=== PATIENT | female | born 1940 | race Caucasian/White ===

== ENCOUNTER 2017-10-01 19:32 | Emergency (ER) | payer MEDICARE, OTHER, SELFPAY ==
[2017-10-01 19:54] VITALS: BP 155/56; PULSE 79; RESP 19; TEMP 37.1; O2SAT 99; BMI 41.8
--- NOTE | 2017-10-01 20:15 | ED_ITS ---
HPI - Head Injury General Chief complaint: Head Injury Stated complaint: FALL FROM PORCH,HIT BACK OF HEAD Time Seen by Provider: 10/01/17 20:15 Source: patient Mode of arrival: ambulatory Limitations: no limitations History of Present Illness HPI Narrative: 76-year-old for sutures to her left elbow patient states that she was walking backwards down her stairs at home where she stepped back and missed a stair and fell hitting her upper back on the cement floor and then hitting her head. No loss of consciousness. She states she was walking backwards down the stairs because it is better on her knees. Not on anticoagulation. Was placed in a cervical collar by triage secondary to lower midline cervical pain. Patient arrived by private vehicle. She came because there was a cut to her left elbow secondary to the fall. Related Data Home Medications Medication Instructions Recorded Confirmed ASCORBIC ACID (VITAMIN C) 500 mg PO QDAY #0 09/23/12 MULTIVITAMIN 1 cap PO QDAY #0 09/23/12 furosemide [Lasix] #0 11/13/16 Previous Rx's Medication Instructions Recorded amlodipine-benazepril 1 cap PO QDAY #90 cap 08/03/17 Allergies Allergy/AdvReac Type Severity Reaction Status Date / Time codeine AdvReac Mild NAUSEA Verified 10/01/17 19:53 Review of Systems Constitutional Denies chills, Denies fever(s), Denies frequent falls, Denies headache(s), Denies lethargy and Denies weakness Eyes Denies loss of vision ENT Ears, Nose, Mouth, and Throat: Denies vertigo, Denies dizziness and Denies headache(s) Cardiovascular Denies chest pain, Denies irregular heart rhythm, Denies lightheadedness, Denies palpitations, Denies dyspnea, Denies dyspnea on exertion and Denies orthopnea Respiratory Denies cough, Denies dyspnea, Denies dyspnea on exertion and Denies wheezing Gastrointestinal Gastrointestinal: Denies abdominal pain, Denies change in bowel habits, Denies diarrhea, Denies nausea and Denies vomiting Musculoskeletal Comments: Upper back and lower neck pain Integumentary/Breasts Comments: Cut to her left elbow Neurologic Denies confusion, Denies vertigo, Denies dizziness, Denies frequent falls, Denies headache(s), Denies focal weakness, Denies loss of vision, Denies seizure -like activity and Denies weakness Psychiatric Denies confusion Endocrine Denies palpitations Hematologic/Lymphatic Denies easy bruising Allergic/Immunologic Denies wheezing [facility] Surgical History History of hip replacement History of hip replacement History of tonsillectomy Status post delivery Status post delivery Status post surgery (05/26/14) Status post surgery (09/24/15) Social History Smoking Status: Never smoker Exam Initial Vital Signs Initial Vital Signs: Vital Signs Temperature 98.7 F 10/01/17 19:54 Pulse Rate 79 10/01/17 19:54 Respiratory Rate 19 10/01/17 19:54 Blood Pressure 155/56 H 10/01/17 19:54 Pulse Oximetry 99 10/01/17 19:54 Const General: cooperative, comfortable and well developed Nutritional Appearance: well nourished and overweight Orientation: alert, awake, oriented x3 and not confused HENMT Head: normal to inspection, normocephalic, atraumatic and other (No depressed skull fracture felt) Eyes General: appearance normal, both eyes and all related structures Eyelids: eyelids normal Conjunctivae: conjunctivae normal Sclera: sclerae normal Pupils: PERRL EOM: EOM intact bilaterally Neck Other: Patient with lower cervical midline tenderness Chest Chest: normal inspection of the chest and No crepitus Resp Effort & Inspection: normal respiratory effort, able to speak in complete sentences, no respiratory distress and no use of accessory muscles Auscultation: clear to auscultation bilaterally, no rales, no rhonchi and no wheezes Cardio Rate: regular rate Rhythm: regular rhythm Heart Sounds: no click, no gallops, no murmurs and no rubs Pulses: normal peripheral pulses GI Inspection: non-distended Palpation: soft, no hepatosplenomegaly, No guarding, No pulsatile mass and No tender Auscultation: normal bowel sounds Back/Spine/Pelvis Other: Patient with upper thoracic midline tenderness without step-offs Skin Other: 3 cm laceration to her left elbow Neuro General: alert, oriented x3, gait normal and no focal motor deficits Cranial Nerves: CN's II-XI intact bilaterally Speech: speech normal Motor: muscle tone normal throughout Sensory Exam: no sensory deficits noted Extrem Other: No gross deformities Pelvis stable Full range of motion of left elbow specifically Procedures Laceration Repair Laceration 1: Site: upper extremity Side (If applicable): left Size (cm): 3 Description: linear Depth: simple, single layer Local Anesthetic: lidocaine 1% Amount of anesthesia used (mL): 4 Pre-repair: wound explored and deep structures intact Skin layer closed with: nylon Size (cm): other (2-0) Number of sutures: 3 Technique: simple, interrupted Course Orders Ordered: ED Orders 10/01/17 20:16 CT cervical spine wo con Stat CT head/brain wo con Stat CT thoracic spine wo con Stat Discontinued Medications Bacitracin (Bacitracin) 1 applic TOP NOW ONE Stop: 10/01/17 21:28 Last Admin: 10/01/17 21:41 Dose: 1 applic Morphine Sulfate (Morphine Sulfate) 5 mg IV NOW ONE Stop: 10/01/17 20:16 Last Admin: 10/01/17 20:20 Dose: 5 mg Ondansetron HCl (Zofran) 4 mg IV NOW ONE Stop: 10/01/17 20:16 Last Admin: 10/01/17 20:20 Dose: 4 mg Vital Signs - 8 hr 10/01/17 19:54 10/01/17 20:43 10/01/17 21:40 Temperature 98.7 F Pulse Rate 79 75 Respiratory Rate 19 17 Blood Pressure 155/56 H Blood Pressure [Left Arm] 146/54 H Pulse Oximetry 99 92 98 MDM - Head Injury Imaging Data CT scan - head: Radiologist's impression: PROCEDURE: CT HEAD/BRAIN WO CON INDICATIONS: Fall on aspirin TECHNIQUE: Noncontrast 4.5 mm thick angled axial sections acquired from the foramen magnum to the vertex, with coronal and sagittal reformats. For radiation dose reduction, the following was used: automated exposure control, adjustment of mA and/or kV according to patient size. COMPARISON: None. FINDINGS: Image quality: Excellent. CSF spaces: Basal cisterns are patent. No extra-axial fluid collections. Ventricles are normal in size and shape. Brain: No midline shift. No intracranial masses or hemorrhage. Zavala-white matter interface is normal. Skull and face: Calvarium and visualized facial bones are intact, without suspicious lesions. Sinuses: Visualized sinuses and mastoids are clear. IMPRESSION: No CT evidence of acute intracranial pathology. Dictated by: Steven Weaver M.D. on 10/01/2017 at 20:50 CT cervical spine: Radiologist's impression: PROCEDURE: CT CERVICAL SPINE WO CON INDICATIONS: Fall midline lower cervical pain TECHNIQUE: Noncontrast 3 mm thick sections acquired from the skull base to the T4 level. Sagittal and coronal reformats were then constructed. For radiation dose reduction, the following was used: automated exposure control, adjustment of mA and/or kV according to patient size. COMPARISON: None. FINDINGS: Image quality: Excellent. Bones: No fractures or dislocations. Visualized superior ribs are intact. Multilevel extensive degenerative changes throughout thoracic spine greatest in the posterior elements. Multilevel neural foraminal narrowing. Soft tissues: Prevertebral soft tissues are normal in thickness. No paravertebral hematomas. No apical pneumothoraces. Left hemithyroidectomy. IMPRESSION: 1. No acute fractures or dislocations. 2. 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 Findings cause multilevel neural foraminal narrowing. 3. Left hemithyroidectomy. Dictated by: Steven Weaver M.D. on 10/01/2017 at 20:52 CT thoracic spine: Radiologist's impression: PROCEDURE: CT THORACIC SPINE WO CON INDICATIONS: Fall lower cervical upper thoracic pain TECHNIQUE: Noncontrast 3 mm thick sections acquired through the region of interest in the thoracic spine. Sagittal and coronal reformats were then constructed. For radiation dose reduction, the following was used: automated exposure control. COMPARISON: None. FINDINGS: Image quality: Excellent. Bones: There is normal overall bony alignment. No acute vertebral body compression fractures. No suspicious sclerotic or lytic bony lesions. Central spinal canal is of normal overall caliber. Extensive degenerative change with intervertebral body disc height loss and osteophyte formation throughout the thoracic spine. Soft tissues: No paravertebral masses or hematomas. Visualized posteromedial lungs appear clear. Partially visualized cholelithiasis. Mild cardiomegaly. IMPRESSION: 1. No acute fractures or dislocations. 2. Degenerative change throughout the thoracic spine. 3. Partially visualized cholelithiasis. Dictated by: Steven Weaver M.D. on 10/01/2017 at 20:55 MDM Narrative Medical decision making narrative: CT scans negative for acute fractures. No intracranial bleed. Cervical collar was removed. Left elbow sutured as above. Will hold on x-raying left elbow secondary to patient's full range of motion and no pain. Patient does have pain medication at home which she can take. We discussed the importance of taking deep breaths to avoid pneumonias. We discussed care instructions with the sutures of her left elbow. We discussed return precautions. She expressed understanding and agreement with plan Discharge Plan Departure Patient Disposition: Home, Self-Care Clinical Impression: CHI (closed head injury), Pain of paraspinal muscle, Fall, Elbow laceration Discharge Date/Time: 10/01/17 21:40 Interventions: ED Discharge Assessment Last Done: 10/01/17 21:40 Instructions: DI for Laceration Repair, Closed Head Injury Activity Restrictions/Additional Instructions: You can take the Tylenol and the pain medication you have at home for any discomfort. Recommend that you periodically take deep breaths to avoid potential complications like pneumonia. The stitches in her left elbow need to be removed in approximately 7-10 days. You can shower like normal however do not scrub the area. Return to the emergency department for any new or worsening symptoms Prescriptions: No Action MULTIVITAMIN 1 cap PO QDAY Qty: 0 RF: 0 ASCORBIC ACID (VITAMIN C) 500 mg PO QDAY Qty: 0 RF: 0 furosemide [Lasix] 20 mg Tablet Qty: 0 RF: 0 amlodipine-benazepril 5 MG/10 MG capsule 1 cap PO QDAY Qty: 90 RF: 0
[2017-10-01] MEDS: MORPHINE 5 MG/ML INJ IV (20:20)
[2017-10-01] MEDS: ONDANSETRON 4 MG/2 ML INJ IV (20:20)
[2017-10-01 20:43] VITALS: BP 146/54; PULSE 75; RESP 17; O2SAT 92
--- NOTE | 2017-10-01 21:12 | PC.NURSE ---
C-collar removed by Dr. Hoang after receiving CT results.
[2017-10-01 21:40] VITALS: O2SAT 98
[2017-10-01] MEDS: BACITRACIN OINT 0.9 GM PCKT 1 APPLIC TOP (21:41)
== END 2017-10-01 21:40 | disposition home or self-care (01) ==
PROVIDERS: Emergency Provider Emergency Medicine; Family Provider Family Medicine; PCP Family Medicine
DX: S09.90XA Unspecified injury of head, initial encounter (principal); S51.012A Laceration without foreign body of left elbow, initial encounter; M79.1 Myalgia; W10.8XXA Fall (on) (from) other stairs and steps, initial encounter
CPT/HCPCS: 12002; 36591; 70450; 72125; 72128; 96374; 96375; 99282; 99284; J2270; J2405

== ENCOUNTER → 2018-01-20 11:12 | Outpatient (CLI) | payer MEDICARE, OTHER, SELFPAY ==
[2018-01-20 12:07] LABS: Add Manual Diff / Slide Review NO; Basophils Percent Auto 0.7 % (0-2); Eosinophils Percent Auto 1.6 % (2-4); Hematocrit 39.7 % (36-46); Hemoglobin 13.1 g/dL (12.0-16.0); Lymphocytes Percent Auto 30.9 % (25-40); Mean Corpuscular Hemoglobin 29.9 PG (26-34); Mean Corpuscular Volume 90.7 fL (80-100); Monocytes Percent Auto 7.6 % (3-14); Neutrophils Absolute Auto 3400 /uL (3000-5900); Neutrophils Percent Auto 59.2 % (50-75); Platelet Count 239 X10^3/uL (150-400); Red Blood Cell Count 4.38 X10^6/uL (4.0-5.2); Red Cell Distribution Width 14.3 % (11.6-14.8); White Blood Cell Count 5.8 X10^3/uL (4.5-11.0)
[2018-01-20 12:17] LABS: Alanine Aminotransferase 27 IU/L (9-52); Albumin 3.9 g/dL (3.5-5.0); Albumin Globulin Ratio 1.6 (1.0-2.8); Alkaline Phosphatase 31 U/L (38-126); Aspartate Aminotransferase 21 IU/L (14-36); BUN Creatinine Ratio 21.7 (6-22); Bilirubin Total 0.7 mg/dL (0.2-1.3); Bilirubin Unconjugated 0.5 mg/dL (0.0-1.1); Blood Urea Nitrogen 13 mg/dL (7-17); Calcium 9.7 mg/dL (8.4-10.2); Carbon Dioxide 28 mmol/L (22-32); Chloride 102 mmol/L (98-107); Estimated Glomerular Filt Rate > 60.0 mL/min (>60); Globulin 2.5 g/dL (1.7-4.1); Glucose 100 mg/dL (80-110); HEMOLYSIS < 15 (0-50); Phosphorous 3.7 mg/dL (2.8-4.1); Potassium 4.3 mmol/L (3.4-5.1); Sodium 143 mmol/L (137-145); Total Protein 6.4 g/dL (6.3-8.2)
[2018-01-20 12:46] LABS: Cancer Antigen 125 < 6 U/mL (0-35)
== END ==
PROVIDERS: PCP Family Medicine; Visit Provider Registered Nurse
DX: C54.1 Malignant neoplasm of endometrium (principal)
CPT/HCPCS: 36415; 80069; 80076; 85025; 86304

== ENCOUNTER 2018-08-10 07:41 | Day surgery (SDC) | payer MEDICARE, OTHER, SELFPAY ==
[2018-08-10] MEDS: PROPARACAINE 0.5% OPHTH SOL 2 DROPS EYE-OP (08:48)
[2018-08-10] MEDS: CATARACT EYE COMPOUND (10 DROPS/SYRINGE) 3 DROPS EYE-OP (08:53)
[2018-08-10 08:54] VITALS: BMI 42.3
[2018-08-10 09:06] VITALS: BP 165/74; PULSE 73; RESP 15; TEMP 36.9; O2SAT 94
--- NOTE | 2018-08-10 09:53 | PM.PREOP ---
Pre-operative Note Interval Note History & Physical reviewed/Exam performed by Physician: No Changes to H&P: No
--- NOTE | 2018-08-10 09:53 | PM.OP.1 ---
Operative Date/Time/Diagnoses Pre-op diagnosis: Nuclear cataract right eye Procedure & Clinicians Procedure: Cataract Surgery Same procedure as scheduled: Yes Surgeon: Sami Montanez Anesthesia Type: MAC +/- and Sedation Operative Notes Procedure in detail: Patient brought to the operating suite. Tetracaine drops placed in the right eye. Marking instrument was used to justine the vertical and horizontal meridian. Patient was prepped and draped in sterile manner. Wire lid speculum was placed in the eye. Marking instrument was used to justine 100 degree meridian. Betadine drops were placed on the eye. This was irrigated. Lidocaine jelly was placed on the eye. A paracentesis port was created with a side-port blade. 0.1 mL 1% preservative free lidocaine was injected into the anterior chamber. The anterior chamber was deepened with viscoelastic. 2.6 mm keratome was used to create a temporal clear corneal incision. Cystotome and Utrata forceps were used to create continuous tear capsulorrhexis. Balanced salt solution was used to hydro dissect the nucleus. The phacoemulsification handpiece was inserted and the nucleus was removed using the stop and chop technique. The irrigation aspiration handpiece was inserted and the remaining cortex was removed. Anterior chamber was deepened with viscoelastic. An Thomas [id number] intraocular lens with a power of 21.0 was injected into the capsular bag. Irrigation aspiration handpiece was inserted and the remaining viscoelastic was removed. The lens was rotated to the 100 degree meridian. There was a tear noted in the anterior capusle. This did not extend past equator and no vitreous was present in anterior chamber. Incision was hydrated with balanced salt solution and found to be leak free with pressure with Weck-Kanwal sponges. 0.1 mL Vigamox injected anterior chamber. 0.3 mL Kenalog 10 mg was injected subconjunctivally. Lid speculum was removed. The patient left the operating room in excellent condition. Complications: none Condition: stable Disposition: same day surgery
[2018-08-10] MEDS: PHENYLEPHRINE/LIDOCAINE VIAL (OR) 0.2 ML EYE-OP (10:33)
[2018-08-10] MEDS: CHONDROIDTIN/SOD HYALURONATE 1.05 ML SYRINGE INTRAOCULA (10:34)
[2018-08-10] MEDS: MOXIFLOXACIN OPHTH DROPS 3 ML BOTTLE 2 DROPS INJ (10:34)
[2018-08-10] MEDS: LIDOCAINE JELLY 2% 5 ML 1 APPLIC TOP (10:34)
[2018-08-10] MEDS: TETRACAINE 0.5% OPHTH DROPS 4 ML 2 DROPS EYE-OP (10:34)
[2018-08-10] MEDS: TRIAMCINOLONE 50 MG/5 ML VIAL INJ (10:34)
[2018-08-10] MEDS: BALANCED SALT IRRIG SOLN NO.2 500 ML, EPINEPHrine 1 MG IRR (10:35)
[2018-08-10 10:55] VITALS: BP 157/75; PULSE 64; RESP 12; TEMP 36.2; O2SAT 98
== END 2018-08-10 11:00 | disposition home or self-care (01) ==
LOC: OR 07:42
PROVIDERS: Family Provider Family Medicine; PCP Student in an Organized Health Care Education/Training Program; Visit Provider Ophthalmology
PROC: (CPT 66984; principal; 2018-08-10 09:45)
DX: H25.11 Age-related nuclear cataract, right eye (principal); I10 Essential (primary) hypertension
CPT/HCPCS: 66984; J0171; J2250; J3010; J3301; V2787

== ENCOUNTER → 2018-08-23 14:36 | Outpatient (CLI) | payer MEDICARE, OTHER, SELFPAY | PROVIDERS: PCP Student in an Organized Health Care Education/Training Program; Visit Provider Student in an Organized Health Care Education/Training Program | DX: Z13.820 Encounter for screening for osteoporosis (principal); Z78.0 Asymptomatic menopausal state; Z90.722 Acquired absence of ovaries, bilateral; R29.890 Loss of height; Z91.89 Other specified personal risk factors, not elsewhere classified | CPT/HCPCS: 77080; 77081 ==

== ENCOUNTER 2018-08-24 07:52 | Day surgery (SDC) | payer MEDICARE, OTHER, SELFPAY ==
[2018-08-24 08:28] VITALS: BP 155/74; PULSE 75; RESP 12; TEMP 36.4; O2SAT 94; BMI 41.0
[2018-08-24] MEDS: PROPARACAINE 0.5% OPHTH SOL 2 DROPS EYE-OP (08:34)
[2018-08-24] MEDS: CATARACT EYE COMPOUND (10 DROPS/SYRINGE) 3 DROPS EYE-OP (08:39)
--- NOTE | 2018-08-24 09:34 | PM.PREOP ---
Pre-operative Note Interval Note History & Physical reviewed/Exam performed by Physician: No Changes to H&P: No
--- NOTE | 2018-08-24 09:34 | PM.OP.1 ---
Operative Date/Time/Diagnoses Pre-op diagnosis: Nuclear Cataract Left eye Post-op diagnosis: same Procedure & Clinicians Surgeon: Sami Montanez Anesthesia Type: MAC +/- and Sedation Operative Notes Procedure in detail: Patient brought to the operating suite. Tetracaine drops placed in the left eye. Patient was prepped and draped in sterile manner. Wire lid speculum was placed in the eye. Betadine drops were placed on the eye. This was irrigated. Lidocaine jelly was placed on the eye. A paracentesis port was created with a side-port blade. 0.1 mL 1% preservative free lidocaine was injected into the anterior chamber. The anterior chamber was deepened with viscoelastic. 2.6 mm keratome was used to create a temporal clear corneal incision. Cystotome and Utrata forceps were used to create continuous tear capsulorrhexis. Balanced salt solution was used to hydro dissect the nucleus. The phacoemulsification handpiece was inserted and the nucleus was removed using the stop and chop technique. The irrigation aspiration handpiece was inserted and the remaining cortex was removed. Anterior chamber was deepened with viscoelastic. An Thomas [id number] intraocular lens with a power of 24.5 was injected into the capsular bag. Irrigation aspiration handpiece was inserted and the remaining viscoelastic was removed. Incision was hydrated with balanced salt solution and found to be leak free with pressure with Weck-Kanwal sponges. 0.1 mL Vigamox injected anterior chamber. 0.3 mL Kenalog 10 mg was injected subconjunctivally. Lid speculum was removed. The patient left the operating room in excellent condition. Complications: none Condition: stable Disposition: same day surgery
[2018-08-24] MEDS: PHENYLEPHRINE/LIDOCAINE VIAL (OR) 0.2 ML EYE-OP (09:53)
[2018-08-24] MEDS: MOXIFLOXACIN OPHTH DROPS 3 ML BOTTLE 2 DROPS INJ (09:53)
[2018-08-24] MEDS: TETRACAINE 0.5% OPHTH DROPS 4 ML 2 DROPS EYE-OP (09:54)
[2018-08-24] MEDS: LIDOCAINE JELLY 2% 5 ML 1 APPLIC TOP (09:54)
[2018-08-24] MEDS: TRIAMCINOLONE 50 MG/5 ML VIAL INJ (09:54)
[2018-08-24] MEDS: CHONDROIDTIN/SOD HYALURONATE 1.05 ML SYRINGE INTRAOCULA (09:54)
[2018-08-24] MEDS: BALANCED SALT IRRIG SOLN NO.2 500 ML, EPINEPHrine 1 MG IRR (09:55)
[2018-08-24 10:06] VITALS: BP 145/73; PULSE 69; RESP 16; TEMP 36.7; O2SAT 97
== END 2018-08-24 10:16 ==
LOC: OR 07:56
PROVIDERS: PCP Student in an Organized Health Care Education/Training Program; Visit Provider Ophthalmology
DX: H25.12 Age-related nuclear cataract, left eye (principal); I10 Essential (primary) hypertension
CPT/HCPCS: J0171; J2250; J3301

== ENCOUNTER 2018-08-31 13:49 | Day surgery (SDC) | payer MEDICARE, OTHER, SELFPAY ==
[2018-08-31 14:15] VITALS: BP 145/77; PULSE 77; RESP 15; TEMP 36.6; O2SAT 98; BMI 41.5
[2018-08-31] MEDS: SODIUM CHLORIDE 0.9% 1,000 ML 200 ML IV ×2 (14:15→17:47)
--- NOTE | 2018-08-31 16:31 | PM.HP.1 ---
History of Present Illness Date Patient Seen: 08/31/18 Time Patient Seen: 16:00 Chief complaint: [id number] SCREENING COLONOSCOPY Narrative: 77-year-old female with personal history of multiple colon polyps on Q 5 year plan for colonoscopy presents for most recent screening colonoscopy. Last was over 5 years ago. She does have a family history of colorectal cancer with her daughter developing colon Cancer in her 50s Current without intestinal symptoms Tolerated prep well Patient History Medical History (Updated 08/31/18 @ 16:33 by Jeremías Cruz MD) Endometrial cancer (Acute) Surgical History History of hip replacement History of hip replacement History of tonsillectomy Status post delivery Status post delivery Status post surgery (05/26/14) Status post surgery (09/24/15) Social History household members: spouse Smoking Status: Never smoker Family & Social History Social History: household members spouse Tobacco & Substance use: Smoking Status Never smoker alcohol intake frequency 0-2 drinks per day Substance Use Type does not use Meds Home Medications Medication Instructions Recorded Confirmed Type multivitamin 2 tab PO DAILY #0 09/23/12 08/31/18 History disabled [address] permit 0 .ROUTE .COMPLEX #1 12/30/17 08/13/18 Rx amlodipine 5 mg-benazepril 10 mg 1 cap PO QDAY #90 cap 02/01/18 08/31/18 Rx capsule furosemide 20 mg tablet 20 mg PO BID #0 tab 08/13/18 08/31/18 History potassium chloride ER 10 mEq 10 meq PO DAILY #90 cap 08/13/18 08/31/18 Rx capsule,extended release Allergies Allergy/AdvReac Type Severity Reaction Status Date / Time codeine AdvReac Mild NAUSEA Verified 08/31/18 14:21 adhesive tape AdvReac Unknown removes my Verified 08/31/18 14:21 skin Review of Systems Constitutional Constitutional: Denies fever(s) Eyes Eyes: Denies bulging eyes ENT Ears, Nose, Mouth, and Throat: No lip swelling Cardiovascular Cardiovascular: Denies generalize swelling Respiratory Respiratory: Denies stridor Gastrointestinal Gastrointestinal: Denies coffee ground emesis Musculoskeletal Musculoskeletal: Denies loss of height Integumentary/Breasts Skin/Breast: Denies wounds Neurologic Neurologic: Denies abnormal speech and Denies confusion Psychiatric Psychiatric: Denies confusion Endocrine Endocrine: Denies deepening of the voice Hematologic/Lymphatic Hematologic/Lymphatic: Denies lymphadenopathy Allergic/Immunologic Allergic/Immunologic: Denies lip swelling Exam Vital Signs (past 8 hours): - 08/31/18 14:15 Temperature 98 F Pulse Rate 77 Respiratory Rate 15 Blood Pressure 145/77 H Pulse Oximetry 98 Oxygen Delivery Method Room Air Const General: cooperative and healthy appearing Orientation: alert HENMT Head: normal to inspection Nose: nares normal Mouth: oral mucosae normal and lip normal Eyes Eyelids: eyelids normal Conjunctivae: conjunctivae normal Sclera: sclerae normal Neck Neck: supple and other (No thyromegally) Chest Chest: other (LCTAB , regular respiratory effort) Cardio Rhythm: regular rhythm Heart Sounds: S1 normal, S2 normal, no gallops, no murmurs and no rubs GI Other: Abdomen soft nontender nondistended. Large well scarred midline laparotomy incision Skin General: no rashes or lesions noted Neuro General: alert and awake Psych Appearance: grossly normal Affect: normal affect Assessment & Plan Assessment & Plan narrative: 77-year-old female with history of endometrial cancer status post hysterectomy presents for screening colonoscopy. Personal history of colon polyps. Family history of colon cancer Colonoscopy today with procedural sedation
[2018-08-31] MEDS: MIDAZOLAM 5 MG/5 ML VIAL IV (17:18)
[2018-08-31] MEDS: fentaNYL 250 MCG/5 ML INJ IV (17:19)
[2018-08-31 18:10] VITALS: BP 124/52; PULSE 65; RESP 16; TEMP 37.1; O2SAT 94
--- NOTE | 2018-08-31 18:13 | PM.OP.ENDO ---
Operative Date/Time/Diagnoses Date of procedure: 08/31/18 Time of procedure: 16:00 Pre-op diagnosis: History of colon polyps Post-op diagnosis: same Procedure & Clinicians Study performed: Screening colonoscopy Same procedure as scheduled: Yes Surgeon: Jeremías Cruz Procedure Notes SCOAP/Timeout: yes Procedure in detail: Patient was brought to the endoscopy suite. A time-out was completed. She was sedated with midazolam and fentanyl. The anoderm was inspected without abnormality a digital rectal exam was performed and no polyps or masses detected. A 160 cm colonoscope was then advanced through the anus into the rectal vault. The area was insufflated and the scope was advanced. There was an acute angle of the rectosigmoid junction requiring careful slide-by procedure to advance the scope beyond. There are numerous diverticuli noted within the sigmoid colon although no diverticulitis. The sigmoid itself was quite tortuous eventually was able to enter into the left colon and advanced the scope up and beyond the hepatic flexure. The transverse colon was navigated making note of the triangular folds. Upon entering the right colon the colonoscopically maneuvering became difficult again with several acute fold below the level of the hepatic flexure was able to traverse these entering into the blind pouch of the cecum. The appendiceal orifice as well as the ileocecal valve were identified. the scope was slowly withdrawn for a total withdrawal time of approximately 15 minutes. Due to the relatively fixed nature of the colon and several tight corners ample time was spent inspecting what was visualized below of these corners with multiple passes in and out around each corner for most thorough inspection. Inspecting the mucosa from the cecum through the rectum no polyps were found. There was a small patch of angiodysplasia lesion just proximal of the splenic flexure. Total withdrawal time 15min Fentanyl 300 Midazolam 8 Scope withdrawal time: 15 minutes Findings: diverticulosis and vascular ectasias Specimen(s): none sent Complications: none Impression: No neoplastic lesions of concern Recommendations: Colonscopy in 5 years Plan for aftercare: The PACU Follow up: as needed Disposition: PACU
== END 2018-08-31 18:35 | disposition home or self-care (01) ==
PROVIDERS: PCP Student in an Organized Health Care Education/Training Program; Visit Provider Surgery
PROC: 0DJD8ZZ Inspection of Lower Intestinal Tract, Via Natural or Artificial Opening Endoscopic (ICD-10-PCS; CPT 45378; principal; 2018-08-31 15:30)
DX: Z86.010 Personal history of colon polyps (principal); K57.30 Diverticulosis of large intestine without perforation or abscess without bleeding; K55.20 Angiodysplasia of colon without hemorrhage; Z80.0 Family history of malignant neoplasm of digestive organs
CPT/HCPCS: G0105; J2250; J3010

== ENCOUNTER → 2019-06-15 11:06 | Outpatient (CLI) | payer MEDICARE, OTHER, SELFPAY ==
[2019-06-15 11:54] LABS: Alanine Aminotransferase 22 IU/L (<35); Albumin 4.2 g/dL (3.5-5.0); Albumin Globulin Ratio 1.3 (1.0-2.8); Alkaline Phosphatase 29 U/L (38-126); Aspartate Aminotransferase 22 IU/L (14-36); Bilirubin Total 0.7 mg/dL (0.2-1.3); Blood Urea Nitrogen 18 mg/dL (7-17); Calcium 10.1 mg/dL (8.4-10.2); Carbon Dioxide 31 mmol/L (22-32); Chloride 102 mmol/L (98-107); Estimated Glomerular Filt Rate > 60.0 mL/min (>60); Globulin 3.2 g/dL (1.7-4.1); Glucose 107 mg/dL (80-110); HEMOLYSIS < 15 (0-50); Potassium 4.7 mmol/L (3.4-5.1); Sodium 141 mmol/L (137-145); Total Protein 7.4 g/dL (6.3-8.2)
== END ==
PROVIDERS: PCP Student in an Organized Health Care Education/Training Program; Referring Provider Radiology Radiation Oncology; Visit Provider Radiology Radiation Oncology
DX: Z85.42 Personal history of malignant neoplasm of other parts of uterus (principal)
CPT/HCPCS: 36415; 80053

== ENCOUNTER 2019-06-23 12:00 | Emergency (ER) | payer MEDICARE, OTHER, SELFPAY ==
[2019-06-23 12:17] VITALS: BP 171/77; PULSE 79; RESP 16; TEMP 37; O2SAT 93; BMI 42.5
[2019-06-23 16:09] VITALS: BP 188/78; PULSE 76; RESP 16; O2SAT 95
--- NOTE | 2019-06-23 16:16 | DI.RAD.S_ITS ---
PROCEDURE: XR HIP W PEL IF DONE LT 2V INDICATIONS: hip pain TECHNIQUE: 3 views of the hip were acquired. COMPARISON: [facility], CT, CT CHEST ABDOMEN PELVIS WITH CONTRAST, 05/09/2019, 14:41. [facility], CR, HIP 2V RIGHT, 12/15/2012, 9:24. FINDINGS: Bones: No fractures or dislocations. No suspicious bony lesions. The visualized pelvic ring appears intact. Soft tissues: No suspicious soft tissue calcifications or masses. IMPRESSION: Bilateral hip arthroplasties, no evidence of device loosening or disruption. A source of new left-sided hip pain is not found. Note is again made of areas of heterotopic ossification adjacent to the lateral border of the left hip joint. Dictated by: J Luis Whitley M.D. on 06/23/2019 at 17:19 Approved by: J Luis Whitley M.D. on 06/23/2019 at 17:20
[2019-06-23] MEDS: CYCLOBENZAPRINE 10 MG TABLET PO (16:27)
[2019-06-23] MEDS: LIDOCAINE PATCH 1 EACH ADH..PATCH TOP (16:27)
[2019-06-23 17:42] VITALS: BP 200/79; PULSE 79; RESP 16; O2SAT 96
--- NOTE | 2019-06-23 20:15 | ED.EXTPRO ---
HPI - Extremity Problem <YAS KatzBC - Last Filed: 06/23/19 20:19> General Chief complaint: Extremity Problem,Nontraumatic Stated complaint: back,groin,down left leg pain Time Seen by Provider: 06/23/19 16:06 Source: patient Mode of arrival: Ambulatory Limitations: no limitations History of Present Illness HPI Narrative: The patient is a 78-year-old female nonsmoker with history of bilateral hip replacements who presents with her for chief complaint of left-sided hip pain. She is worried that her hip replacements ?breaking down.She states that she started having pain a few days ago when she was stretching. She denies any shortness of breath, fever, nausea vomiting or diarrhea. She has tried Tylenol and oxycodone. The oxycodone help speak she denies any redness, swelling or rashes in the area. She states that the pain is in the inguinal area. Wraps around her hip on the left side. Related Data Home Medications Medication Instructions Recorded Confirmed multivitamin 2 tab PO DAILY #0 09/23/12 06/23/19 furosemide 20 mg tablet 20 mg PO DAILY #0 tab 08/13/18 06/23/[address] 1 ea .ROUTE DIRECTED 06/23/19 06/23/19 metronidazole 1 applic TOPICAL DIRECTED 06/23/19 06/23/19 Previous Rx's Medication Instructions Recorded potassium chloride 10 mEq 10 meq PO DAILY #90 cap 01/25/19 capsule,extended release amlodipine 5 mg-benazepril 10 mg 1 cap PO DAILY #14 cap 01/31/19 capsule cyclobenzaprine 10 mg PO TID PRN #20 tab 06/23/19 lidocaine 1 patch TOP DAILY #15 each 06/23/19 Allergies Allergy/AdvReac Type Severity Reaction Status Date / Time oxycodone Allergy Verified 06/23/19 12:17 codeine AdvReac Mild NAUSEA Verified 06/23/19 12:17 adhesive tape AdvReac Unknown removes my Verified 06/23/19 12:17 skin Review of Systems <SUZIE Katz - Last Filed: 06/23/19 20:19> Review of Systems Narrative: GENERAL: Denies chills, fatigue, malaise, fever, sweats. HEENT: Denies sinus pain, ear pain, sore throat, difficulty swallowing, dizziness. RESPIRATORY: Denies dyspnea, cough, wheezing, hemoptysis, sputum. CARDIOVASCULAR: Denies chest pain, palpitations, orthopnea, edema, GASTROINTESTINAL: Denies nausea, vomiting, abdominal pain, diarrhea, constipation, melena. : Denies dysuria, frequency, incontinence, hematuria, urinary retention. MUSCULOSKELETAL: See HPI SKIN: Denies rash, skin lesions, or other NEUROLOGIC: Denies weakness, headache, numbness, change in speech, confusion, seizures, incoordination. PSYCHIATRIC: No concerning psychosocial issues. 12 point review of systems is negative except for those stated above Patient History <SUZIE Katz - Last Filed: 06/23/19 20:19> Medical History Endometrial cancer (Acute) Surgical History History of hip replacement History of hip replacement History of tonsillectomy Status post delivery Status post delivery Status post surgery (05/26/14) Status post surgery (09/24/15) Social History household members: spouse Smoking Status: Never smoker Smoking Status: Never smoker alcohol intake frequency: holidays/special occasions only Substance Use Type: does not use Exam <SUZIE Katz - Last Filed: 06/23/19 20:19> Narrative Exam Narrative: GENERAL: Elderly female in no acute distress HEAD: Atraumatic. Normocephalic. No temporal or scalp tenderness. EYES: Pupils equal round and reactive. Extraocular motions intact. No scleral icterus. No injection or drainage. ENT: Nose without bleeding, purulent drainage or septal hematoma. Throat without erythema, tonsillar hypertrophy or exudate. Uvula midline. Airway patent. NECK: Trachea midline. No JVD or lymphadenopathy. Supple, nontender, no meningeal signs. CARDIOVASCULAR: Regular rate and rhythm without murmurs, gallops, or rubs. RESPIRATORY: Clear to auscultation. Breath sounds equal bilaterally. No wheezes, rales, or rhonchi. GASTROINTESTINAL: Abdomen soft, non-tender, nondistended. No hepato-splenomegaly, or palpable masses. No guarding. EXTREMITIES: Pedal pulses intact bilaterally. Pain to palpation right hip that is generalized. Decreased range of motion all gil bilateral hips BACK: Nontender without deformity or crepitance. No flank tenderness. NEURO: AOx3. SKIN: No rash or erythema on visible skin. No swelling, ecchymosis, laceration abrasion or redness noted on left leg. Initial Vital Signs Initial Vital Signs: Vital Signs Temperature 98.6 F 06/23/19 12:17 Pulse Rate 79 06/23/19 12:17 Respiratory Rate 16 06/23/19 12:17 Blood Pressure 171/77 H 06/23/19 12:17 Pulse Oximetry 93 06/23/19 12:17 <Virgilio Sampson DO - Last Filed: 06/24/19 07:06> Initial Vital Signs Initial Vital Signs: Vital Signs Temperature 98.6 F 06/23/19 12:17 Pulse Rate 79 06/23/19 12:17 Respiratory Rate 16 06/23/19 12:17 Blood Pressure 171/77 H 06/23/19 12:17 Pulse Oximetry 93 06/23/19 12:17 Course <SUZIE Katz - Last Filed: 06/23/19 20:19> Orders Ordered: Discontinued Medications Cyclobenzaprine HCl (Flexeril) 10 mg PO NOW ONE Stop: 06/23/19 16:17 Last Admin: 06/23/19 16:27 Dose: 10 mg Documented by: SHAVON Lidocaine (Lidoderm) 1 each TOP NOW ONE Stop: 06/23/19 16:17 Last Admin: 06/23/19 16:27 Dose: 1 each Documented by: SHAVON Vital Signs Vital signs: Vital Signs - 8 hr 06/23/19 12:17 06/23/19 16:09 06/23/19 17:42 Temperature 98.6 F Pulse Rate 76 79 Pulse Rate [Left] 79 Respiratory Rate 16 16 16 Blood Pressure [Left Arm] 171/77 H 188/78 H 200/79 H Pulse Oximetry 93 95 96 <Virgilio Sampson DO - Last Filed: 06/24/19 07:06> Orders Ordered: Discontinued Medications Cyclobenzaprine HCl (Flexeril) 10 mg PO NOW ONE Stop: 06/23/19 16:17 Last Admin: 06/23/19 16:27 Dose: 10 mg Documented by: SHAVON Lidocaine (Lidoderm) 1 each TOP NOW ONE Stop: 06/23/19 16:17 Last Admin: 06/23/19 16:27 Dose: 1 each Documented by: SHAVON Vital Signs Vital signs: Vital Signs - 8 hr 06/23/19 12:17 06/23/19 16:09 06/23/19 17:42 Temperature 98.6 F Pulse Rate 76 79 Pulse Rate [Left] 79 Respiratory Rate 16 16 16 Blood Pressure [Left Arm] 171/77 H 188/78 H 200/79 H Pulse Oximetry 93 95 96 MDM - Extremity (Nontraumatic) <SUZIE Katz - Last Filed: 06/23/19 20:19> Imaging Data Extremity x-ray #1: Radiologist's Impression: [address] [place] [id number] XRay Report Signed Patient: Evon Farrell BMR#: [id number] : 1940Acct:[id number] Age/Sex: 78 / FDate of Service: 06/23/19 Loc: ED Accession Number: [id number] Procedure: XR hip w pel if done LT 2V Ordering Provider: Sonya Darling PROCEDURE: XR HIP W PEL IF DONE LT 2V INDICATIONS: hip pain TECHNIQUE: 3 views of the hip were acquired. COMPARISON: [facility], CT, CT CHEST ABDOMEN PELVIS WITH CONTRAST, 05/09/2019, 14:41. [facility], CR, HIP 2V RIGHT, 12/15/2012, 9:24. FINDINGS: Bones: No fractures or dislocations. No suspicious bony lesions. The visualized pelvic ring appears intact. Soft tissues: No suspicious soft tissue calcifications or masses. IMPRESSION: Bilateral hip arthroplasties, no evidence of device loosening or disruption. A source of new left-sided hip pain is not found. Note is again made of areas of heterotopic ossification adjacent to the lateral border of the left hip joint. Dictated by: J Luis Whitley M.D. on 06/23/2019 at 17:19 Approved by: J Luis Whitley M.D. on 06/23/2019 at 17:20 [facility] Narrative Medical decision making narrative: The patient is a 78-year-old female who presents with a chief complaint of left-sided hip pain and concerned about her hip replacement. No acute findings on x-ray. The patient feels much improved after Flexeril and lidocaine. I discussed at length the importance of following up with primary care provider, coming back to the emergency department for any acute concerns. She is neurovascularly intact throughout her stay in the emergency department, able to weightbear with her walker per usual. Patient has no questions or concerns upon discharge and states understanding of return precautions as well as follow-up care. Patient has no questions or concerns upon discharge and states understanding of return precautions as well as follow-up care Discharge Plan Departure Patient Disposition: Home Clinical Impression: Acute pain of left hip Discharge Date/Time: 06/23/19 17:46 Instructions: DI for Muscle Spasm, DI for Hip Pain Activity Restrictions/Additional Instructions: As I discussed, your x-ray shows no acute fracture. This does not rule out a soft tissue injury such as a ligament or tendon injury. It is important that you follow up with primary care provider, especially if worsening or no improvement. There can be fractures that did not show up on initial x-ray. I sent in a prescription for pain patches as well as Flexeril. This is a muscle relaxer. I can be sedating. Do not combine it with any other sedating agents. Please follow-up with primary care provider next few days Please come back to emergency department for any acute concerns Prescriptions: New cyclobenzaprine 10 mg tablet 10 mg PO TID PRN (Reason: muscle spasm) Qty: 20 RF: 0 lidocaine 5 % adhesive patch,medicated 1 patch TOP DAILY Qty: 15 RF: 0 No Action multivitamin Tablet 2 tab PO DAILY Qty: 0 RF: 0 potassium chloride 10 mEq capsule, extended release 10 meq PO DAILY Qty: 90 RF: 3 amlodipine-benazepril 5-10 mg capsule 1 cap PO DAILY Qty: 14 RF: 0 furosemide [Lasix] 20 mg tablet 20 mg PO DAILY Qty: 0 RF: 0 metronidazole 0.75 % cream 1 applic TOPICAL DIRECTED RF: [address] permit 1 ea .Route DIRECTED RF: 0 Referrals: Herb Graves MD [Primary Care Provider] -
== END 2019-06-23 17:46 | disposition home or self-care (01) ==
PROVIDERS: Emergency Provider Nurse Practitioner Family; PCP Student in an Organized Health Care Education/Training Program
DX: M25.552 Pain in left hip (principal)
CPT/HCPCS: 73502; 99283

== ENCOUNTER → 2020-01-30 11:54 | Outpatient (CLI) | payer MEDICARE, OTHER, SELFPAY ==
[2020-01-30 13:43] LABS: BUN Creatinine Ratio 28.3 (6-22); Blood Urea Nitrogen 17 mg/dL (7-17); Calcium 9.2 mg/dL (8.4-10.2); Carbon Dioxide 32 mmol/L (22-32); Chloride 103 mmol/L (98-107); Estimated Glomerular Filt Rate > 60.0 mL/min (>60); Glucose 115 mg/dL (80-110); HEMOLYSIS < 15 (0-50); Potassium 4.1 mmol/L (3.4-5.1); Sodium 138 mmol/L (137-145)
== END ==
PROVIDERS: PCP Student in an Organized Health Care Education/Training Program; Referring Provider Internal Medicine Hematology & Oncology; Visit Provider Internal Medicine Hematology & Oncology
DX: C54.1 Malignant neoplasm of endometrium (principal)
CPT/HCPCS: 36415; 80048

== ENCOUNTER → 2020-01-31 12:56 | Outpatient (CLI) | payer MEDICARE, OTHER, SELFPAY ==
--- NOTE | 2020-01-31 13:53 | DI.CT.S_ITS ---
PROCEDURE: CT CHEST ABD PEL W CON INDICATIONS: Malignant neoplasm of endometrium TECHNIQUE: After the administration of oral and intravenous contrast, 5 mm thick sections acquired from the lung apices to the symphysis. 5 mm coronal and sagittal reformats were performed, with additional 7 mm coronal MIP reformats through the lungs. For radiation dose reduction, the following was used: automated exposure control, adjustment of mA and/or kV according to patient size. COMPARISON: [facility], CT, CT CHEST ABD PELVIS W CON, 01/21/2016, 9:14. [facility], CT, CT CHEST ABDOMEN PELVIS WITH CONTRAST, 10/31/2019, 16:16. [facility], CT, CHEST/ABD/PEL WITH CONTRAST, 10/02/2015, 9:32. FINDINGS: Image quality: Excellent. CHEST: Lungs and pleura: There are scattered ground-glass opacities throughout both lungs. No focal airspace opacities. No pulmonary nodules. No pleural effusion or pneumothorax. Mild platelike atelectasis is present in the mid lungs bilaterally. Mediastinum: Heart size is normal. No pericardial effusion. There is a borderline enlarged subcarinal lymph node which is unchanged from multiple studies dating back to 2016 (series 2/image 32). A low-density 1.3 cm in diameter cystic structure is present posterior to the left atrium which is unchanged from prior studies and may represent a necrotic lymph node. No other mediastinal or hilar adenopathy. Thoracic aorta and central pulmonary arteries are normal in size. Scattered atheromatous calcifications are present within the aortic arch. Esophagus is normal in caliber. No hiatal hernia. Chest wall: No axillary or supraclavicular adenopathy by size criteria. There is hypertrophy of the right thyroid lobe which extends in the retropharyngeal region. The left thyroid lobe is not visualized and may be surgically absent. Surgical clips are present in the thyroid bed. ABDOMEN: Solid organs: Liver is normal in size and diffusely hypodense suggesting fatty infiltration. Multiple calcified gallstones are redemonstrated in the gallbladder fundus. No gallbladder wall thickening or pericholecystic fluid. Biliary system is non dilated. Pancreas enhances normally. Spleen is normal in size and enhancement. No adrenal nodules. Kidneys demonstrate normal size and enhancement, without hydronephrosis. A low-density cystic lesion is present within the midpole of the right kidney. Peritoneum and bowel: Bowel loops demonstrate normal wall thickness and caliber. No free fluid or air. Nodes and vessels: No retroperitoneal or mesenteric adenopathy by size criteria. Aorta and inferior vena cava are normal in size. There are scattered atheromatous calcifications throughout the aorta and iliac arteries bilaterally. Miscellaneous: No ventral hernias. PELVIS: Genitourinary: Bladder wall thickness is normal. Miscellaneous: No inguinal hernias or adenopathy. Bones: No suspicious bony lesions. No vertebral body compression fractures. IMPRESSION: 1. No findings to suggest tumor recurrence or new metastasis. Dictated by: Arleen Castellanos M.D. on 01/31/2020 at 14:34 Approved by: Arleen Castellanos M.D. on 01/31/2020 at 15:01
== END ==
PROVIDERS: PCP Student in an Organized Health Care Education/Training Program; Referring Provider Student in an Organized Health Care Education/Training Program; Visit Provider Internal Medicine Hematology & Oncology
DX: C54.1 Malignant neoplasm of endometrium (principal)
CPT/HCPCS: 71260; 74177; Q9967

== ENCOUNTER → 2020-02-16 12:11 | Outpatient (CLI) | payer MEDICARE, OTHER, SELFPAY ==
[2020-02-16 16:38] LABS: TSH w/ Reflex to FT4 0.45 uIU/mL (0.47-4.68)
== END ==
PROVIDERS: PCP Student in an Organized Health Care Education/Training Program; Referring Provider Student in an Organized Health Care Education/Training Program; Visit Provider Student in an Organized Health Care Education/Training Program
DX: I16.0 Hypertensive urgency (principal)
CPT/HCPCS: 36415; 84439; 84443

== ENCOUNTER → 2020-03-09 14:01 | Outpatient (CLI) | payer MEDICARE, OTHER, SELFPAY ==
--- NOTE | 2020-03-09 14:03 | DI.ECHO.S_ITS ---
[facility] +---------+ : : [address] : : : : [id number] : : : : Phone: [phone]+ Echocardiogram Report + + :Name: MARY HAYES Study Date: 03/09/2020 Height: 61 in : :[facility] Weight: 230 lb : : Gender: Female BSA: 2.0 m2 : :: 1940 Age: 79 yrs BP: 196/86 mmHg: :Reason For Study: HYPERTENSIVE URGENCY : : Performed By: Kiana Lamas : :Referring: ANTOINE ZHOU : + + Interpretation Summary 1) Normal left ventricular size, thickness, and systolic function (EF 65-70%). 2) There are no obvious focal wall motion abnormalities noted but poor endocardial definition reduces the sensitivity for the detection of such. 3) Normal right ventricular size and function. 4) Diastolic parameters suggest a pseudonormalization pattern, consistent with probable elevated filling pressures. 5) No significant valvular abnormalities on doppler examination. 6) The right ventricular systolic pressure is estimated to be at least 53 mmHg based on an estimated right atrial pressure of 8 mm Hg. 7) Severe hypertension present during the study (BP 196/86mHg). 8) Compared to the Echo done 11/12/2015, severe hypertension is present on this study. Procedure: A two-dimensional transthoracic echocardiogram with color flow and Doppler was performed. The study quality was technically difficult. Comparison is made with the echocardiogram of 11/12/2015. The patient was in normal sinus rhythm during the exam. Left Ventricle: The left ventricle is normal in size. There is normal left ventricular wall thickness. There is no ventricular septal defect visualized. The ejection fraction is estimated to be 65-70%. There are no obvious focal wall motion abnormalities noted but poor endocardial definition reduces the sensitivity for the detection of such. Diastolic parameters suggest a pseudonormalization pattern, consistent with probable elevated filling pressures. Right Ventricle: The right ventricle is grossly normal size. The right ventricular systolic function is normal. Atria: The left atrium is mildly dilated. Right atrial size is normal. Mitral Valve: The mitral valve leaflets are slightly calcified. There is trace mitral regurgitation. Aortic Valve: The aortic valve is grossly normal. There is no aortic valve stenosis. No aortic regurgitation is present. Tricuspid Valve: The tricuspid valve is not well visualized, but is grossly normal. There is trace tricuspid regurgitation. The right ventricular systolic pressure is estimated to be at least 53 mmHg based on an estimated right atrial pressure of 8 mm Hg. Pulmonic Valve: The pulmonic valve is not well visualized. There is a trace or physiologic amount of pulmonic regurgitation. Great Vessels: The aortic root is normal size. The ascending aorta could not be visualized. The aortic arch is normal in size. The IVC is of normal diameter and collapses less than 50% with a sniff. This suggests a right atrial pressure of 8 mm Hg. Pericardium/ Pleura There is no pericardial effusion. MMode/2D Measurements & Calculations LVIDd: 5.1 cm LVOT diam: 1.9 cm LVIDs: 2.9 cm Ao root diam: 2.9 cm FS: 42.8 % Ao Arch Diam (Prox Trans): 2.6 cm IVSd: 0.76 cm LVPWd: 1.0 cm LV singh. diameter/BSA (cm/m^2): 2.6 LV sys. diameter/BSA (cm/m^2): 1.5 LA A4 area: 21.3 cm2 RA long axis: 4.8 cm LA length (vol): 6.1 cm RA area: 16.4 cm2 RA vol: 47.9 ml RA : 23.9 ml/m2 IVC diam: 2.0 cm RVD1 (basal): 3.0 cm RVD2 (mid): 2.5 cm TAPSE: 2.6 cm Doppler Measurements & Calculations Ao V2 max: 196.3 cm/sec LVOT Max Jairon: 162.9 cm/sec Ao V2 mean: 119.3 cm/sec LV V1 max P.6 mmHg Ao max P.4 mmHg LV V1 VTI: 35.5 cm Ao mean P.7 mmHg CHRIS(I,D): 2.8 cm2 Ao V2 VTI: 36.1 cm CHRIS(V,D): 2.3 cm2 sev ratio: 0.98 CHRIS indexed to BSA (cm^2/m^2): 1.4 MV E max jairon: 138.5 cm/sec TR max jairon: 336.1 cm/sec MV A max jairon: 131.3 cm/sec TR max P.2 mmHg MV E/A: 1.1 PA V2 max: 111.2 cm/sec Med Peak E' Jairon: 6.4 cm/sec PA V2 mean: 87.2 cm/sec E/E' med: 21.6 PA mean P.3 mmHg Lat Peak E' Jairon: 7.7 cm/sec PA Accel Time: 0.08 sec E/E' lat: 18.0 E/e' average: 19.8 MV dec time: 0.19 sec MV P1/2t: 55.6 msec MVA(VTI): 2.9 cm2 MV V2 mean: 76.2 cm/sec MV P1/2t max jairon: 139.7 cm/sec MV mean P.9 mmHg MVA(P1/2t): 4.0 cm2 MV V2 VTI: 34.5 cm SV(LVOT): 100.2 ml Reading Physician:05:37 PM
== END ==
PROVIDERS: PCP Student in an Organized Health Care Education/Training Program; Referring Provider Student in an Organized Health Care Education/Training Program; Visit Provider Student in an Organized Health Care Education/Training Program
DX: I16.0 Hypertensive urgency (principal)
CPT/HCPCS: 93306

== ENCOUNTER → 2020-03-16 11:18 | Outpatient (CLI) | payer MEDICARE, OTHER, SELFPAY ==
--- NOTE | 2020-03-16 | DI.MG.S_ITS ---
BILATERAL DIGITAL SCREENING MAMMOGRAM 3D/2D WITH CAD: 03/16/2020 CLINICAL: Routine screening. Comparison is made to exams dated: 11/18/2016 mammogram, 02/15/2014 mammogram, and 01/24/2013 mammogram - [facility]. There are scattered fibroglandular elements in both breasts. Current study was also evaluated with a Computer Aided Detection (CAD) system. No significant masses, calcifications, or other findings are seen in either breast. There has been no significant interval change. IMPRESSION: NEGATIVE There is no mammographic evidence of malignancy. A 1 year screening mammogram is recommended. This exam was interpreted at Station ID: [id number]. NOTE: For mammograms, a report in lay terms will be sent to the patient. Approximately 15% of breast malignancies will not be visualized mammographically. In the management of a palpable breast mass, a negative mammogram must not discourage biopsy of a clinically suspicious lesion. Electronically Signed By: Arleen badillo/karlie:03/16/2020 13:28:56 copy to: SARAI MTZ letter sent: Normal Exam ACR BI-RADS Category 1: Negative [id number]
== END ==
PROVIDERS: PCP Student in an Organized Health Care Education/Training Program; Referring Provider Student in an Organized Health Care Education/Training Program; Visit Provider Student in an Organized Health Care Education/Training Program
DX: Z12.31 Encounter for screening mammogram for malignant neoplasm of breast (principal)
CPT/HCPCS: 77063; 77067

== ENCOUNTER 2020-05-03 13:28 | Emergency (ER) | payer MEDICARE, OTHER, SELFPAY ==
[2020-05-03] VITALS (7 sets, daily range): BP systolic 135–199; BP diastolic 64–83; PULSE 68–80; RESP 16–24; TEMP 36.8; O2SAT 91–95
--- NOTE | 2020-05-03 13:58 | DI.RAD.S_ITS ---
PROCEDURE: XR CHEST 1V INDICATIONS: sob TECHNIQUE: One view of the chest was acquired. COMPARISON: [facility], CT, CT ANGIO CHEST PE, 11/08/2015, 19:00. [facility], CR, XR CHEST 2VW, 11/12/2015, 7:51. [facility], CR, CHEST 2 VIEW, 11/20/2015, 17:09. FINDINGS: Surgical changes and devices: None. Lungs and pleura: There are diffuse bilateral linear perihilar opacities consistent with scarring seen on prior chest CT. No pneumothorax. No pleural effusion. Mediastinum: Mediastinal contours appear normal. Heart size is normal. Bones and chest wall: No suspicious bony lesions. Overlying soft tissues appear unremarkable. IMPRESSION: Linear perihilar airspace opacities are likely scarring which was seen on prior chest CT. A component of mild CHF is also a possibility. Dictated by: Lonnie Ernandez M.D. on 05/03/2020 at 14:48 Approved by: Lonnie Ernandez M.D. on 05/03/2020 at 14:51
--- NOTE | 2020-05-03 14:08 | ED_ITS ---
HPI - SOB/Dyspnea General Chief Complaint: Shortness of Breath/Dyspnea Stated Complaint: breathing problems, adema Time Seen by Provider: 05/03/20 13:58 Source: patient Mode of arrival: Ambulatory Limitations: no limitations History of Present Illness HPI Narrative: Patient is a 79-year-old female with history hypertension, endometrial cancer presenting today with increasing shortness of breath. She states that she has had shortness of breath ongoing for the last 4 months, it seems to be worse with exertion. She denies any orthopnea or chest pain. She has had some lower extremity edema but over the last couple days it has gotten significantly worse. Her breathing with exertion has also gotten worse. Her states she can barely get to the bathroom. She is supposed to take Lasix once daily however she says when she takes it with her blood pressure medication because it causes some urinary discomfort so she really has not been taking it. She did take it the other day. She denies any fevers chills or cough. She has no known history of congestive heart failure.She had an echocardiogram in March 2020 with an EF is 65-70% but noted to have a diastolic probable elevated filling pressures MD Complaint: shortness of breath Exacerbating factors: exertion Known history of: congestive heart failure Related Data Home Medications Medication Instructions Recorded Confirmed multivitamin 2 tab PO DAILY #0 09/23/12 04/18/20 metronidazole 1 applic TOPICAL DIRECTED 06/23/19 04/18/20 acetaminophen 500 mg capsule 500 mg PO Q6H PRN 04/13/20 04/18/20 furosemide 40 mg tablet 40 mg PO DAILY 04/18/20 04/18/20 Previous Rx's Medication Instructions Recorded amlodipine 10 mg-benazepril 20 mg 1 cap PO DAILY #90 cap 04/09/20 capsule potassium chloride 10 mEq 10 meq PO DAILY #90 cap 04/19/20 capsule,extended release Allergies Allergy/AdvReac Type Severity Reaction Status Date / Time oxycodone Allergy Verified 05/03/20 13:43 codeine AdvReac Mild NAUSEA Verified 05/03/20 13:43 adhesive tape AdvReac Unknown removes my Verified 05/03/20 13:43 skin Review of Systems Review of Systems Narrative: GENERAL: Denies chills, fatigue, malaise, fever, sweats, travel HEENT: Denies sinus pain, ear pain, sore throat, difficulty swallowing, neck pain RESPIRATORY: See HPI CARDIOVASCULAR: Denies chest pain, palpitations, orthopnea, edema GASTROINTESTINAL: Denies nausea, vomiting, abdominal pain, diarrhea, constipation, melena. : Denies dysuria, frequency, incontinence, hematuria, urinary retention, flank pain. MUSCULOSKELETAL: Denies weakness, joint pain, or bony pain SKIN: No rash, no erythema, no pruritus NEUROLOGIC: Denies weakness, dizziness, headache, numbness, change in speech, confusion PSYCHIATRIC: No concerning psychosocial issues. 12 point review of systems is negative except for those stated above and HPI Patient History Medical History Arthritis Endometrial cancer High blood pressure Mixed incontinence Surgical History History of hip replacement History of hip replacement History of tonsillectomy Status post delivery Status post delivery Status post surgery (05/26/14) Status post surgery (09/24/15) Family History Daughter Cancer Father Cerebrovascular accident (stroke) Hypertension Social History marital status: number of children: 2 household members: spouse Smoking Status: Never smoker alcohol intake: current Smoking Status: Never smoker alcohol intake frequency: holidays/special occasions only Substance Use Type: does not use Exam Initial Vital Signs Initial Vital Signs: Vital Signs Temperature 98.3 F 05/03/20 13:34 Pulse Rate 80 05/03/20 13:34 Respiratory Rate 16 05/03/20 13:34 Blood Pressure 199/83 H 05/03/20 13:34 Pulse Oximetry 95 05/03/20 13:34 GENERAL: Alert pleasant slightly overweight 79-year-old female and in no acute distress. HEENT: Head atraumatic,EOMI, pupils reactive, face symmetric, moist mucous membranes CARDIOVASCULAR: Regular rate and rhythm without murmurs, rubs or gallops. RESPIRATORY: Breath sounds equal bilaterally, no wheezes rales or rhonchi. ABDOMEN: Soft, nontender. Normoactive bowel sounds all 4 quadrants. No guarding or rebound. EXTREMITIES: Normal range of motion, no clubbing or edema. Neurovascularly intact NEUROLOGICAL: Alert and oriented x4.Normal gait and speech. Cranial nerves II through XII grossly intact. SKIN: Warm, dry, no laceration, no petechiae, no rashes or lesions. Course Orders Ordered: ED Orders 05/03/20 13:58 Consult to Respiratory Therapy Evaluate & Treat XR chest 1V Stat EKG-12 Lead Stat 05/03/20 14:30 Complete Blood Count AUTO DIFF Stat Comprehensive Metabolic Panel Stat Lactate (Lactic Acid) Stat Magnesium Stat NT-proBNP (BNP-Adult 18+) Stat Partial Thromboplastin Time Stat Procalcitonin Stat Prothrombin Time INR Stat Troponin & CK Cardiac Panel Stat 05/03/20 14:38 Blood Culture Stat 05/03/20 14:45 COVID19 Stat Discontinued Medications Furosemide (Furosemide 40 Mg/4 Ml Vial) 40 mg IV NOW ONE Stop: 05/03/20 15:48 Last Admin: 05/03/20 15:58 Dose: 40 mg Documented by: NEGRA Vital Signs Vital signs: Vital Signs - 8 hr 05/03/20 13:34 05/03/20 14:03 05/03/20 14:30 Temperature 98.3 F Pulse Rate 80 80 72 Respiratory Rate 16 22 Blood Pressure 199/83 H 135/67 142/64 H Pulse Oximetry 95 92 95 05/03/20 15:38 05/03/20 16:00 05/03/20 16:30 Temperature Pulse Rate 75 68 69 Respiratory Rate 22 24 Blood Pressure Pulse Oximetry 95 91 93 05/03/20 18:17 Temperature Pulse Rate 70 Respiratory Rate 22 Blood Pressure 163/70 H Pulse Oximetry 94 MDM - SOB/Dyspnea Lab Data Attestation: I reviewed the patient's lab results. Result diagrams: 05/03/20 14:30 05/03/20 14:30 Labs: Lab Results 05/03/20 05/03/20 05/03/20 Range/Units 14:30 14:30 14:30 WBC 7.1 (4.5-11.0) X10^3/uL RBC 4.35 (4.0-5.2) X10^6/uL Hgb 12.3 (12.0-16.0) g/dL Hct 39.3 (36-46) % MCV 90.3 (80-100) fL MCH 28.3 (26-34) PG MCHC 31.4 (30-36) % RDW 14.5 (11.6-14.8) % Plt Count 292 (150-400) X10^3/uL Neut % (Auto) 72.9 (50-75) % Lymph % (Auto) 16.9 L (25-40) % Cuming % (Auto) 7.9 (3-14) % Eos % (Auto) 1.4 L (2-4) % Baso % (Auto) 0.9 (0-2) % Neut # (Auto) 5200 (5334-6171) /uL Lymph # (Auto) 1200 (0175-1174) /uL Cuming # (Auto) 600 (0-900) /uL Eos # (Auto) 100 (0-450) /uL Baso # (Auto) 100 (0-100) /uL PT 12.5 (10.1-12.7) SECONDS INR 1.1 (0.9-1.3) APTT 35 (26.4-36.2) SECONDS Sodium 139 (137-145) mmol/L Potassium 4.0 (3.4-5.1) mmol/L Chloride 103 (98-107) mmol/L Carbon Dioxide 30 (22-32) mmol/L BUN 22 H (7-17) mg/dL Creatinine 0.59 (0.52-1.04) mg/dL Estimated GFR > 60.0 (>60) mL/min BUN/Creatinine Ratio 37.3 H (6-22) Glucose 131 H (80-110) mg/dL Lactate (0.7-2.1) mmol/L Calcium 9.7 (8.4-10.2) mg/dL Magnesium 1.8 (1.6-2.3) mg/dL Total Bilirubin 0.5 (0.2-1.3) mg/dL AST 21 (14-36) IU/L ALT 22 (<35) IU/L Alkaline Phosphatase 30 L (38-126) U/L Total Creatine Kinase 40 (30-135) U/L CK-MB (CK-2) TNP CK-MB (CK-2) Rel Index TNP Troponin I < 0.012 (0.01-0.034) ng/mL NT-Pro-B Natriuret Pep 179 (<450) pg/mL Total Protein 7.0 (6.3-8.2) g/dL Albumin 4.1 (3.5-5.0) g/dL Globulin 2.9 (1.7-4.1) g/dL Albumin/Globulin Ratio 1.4 (1.0-2.8) Procalcitonin (<0.5) ng/mL SARS-CoV-2 (PCR) (Negative) 05/03/20 05/03/20 05/03/20 Range/Units 14:30 14:30 14:45 WBC (4.5-11.0) X10^3/uL RBC (4.0-5.2) X10^6/uL Hgb (12.0-16.0) g/dL Hct (36-46) % MCV (80-100) fL MCH (26-34) PG MCHC (30-36) % RDW (11.6-14.8) % Plt Count (150-400) X10^3/uL Neut % (Auto) (50-75) % Lymph % (Auto) (25-40) % Cuming % (Auto) (3-14) % Eos % (Auto) (2-4) % Baso % (Auto) (0-2) % Neut # (Auto) (0208-5029) /uL Lymph # (Auto) (6350-1230) /uL Cuming # (Auto) (0-900) /uL Eos # (Auto) (0-450) /uL Baso # (Auto) (0-100) /uL PT (10.1-12.7) SECONDS INR (0.9-1.3) APTT (26.4-36.2) SECONDS Sodium (137-145) mmol/L Potassium (3.4-5.1) mmol/L Chloride (98-107) mmol/L Carbon Dioxide (22-32) mmol/L BUN (7-17) mg/dL Creatinine (0.52-1.04) mg/dL Estimated GFR (>60) mL/min BUN/Creatinine Ratio (6-22) Glucose (80-110) mg/dL Lactate 2.5 H (0.7-2.1) mmol/L Calcium (8.4-10.2) mg/dL Magnesium (1.6-2.3) mg/dL Total Bilirubin (0.2-1.3) mg/dL AST (14-36) IU/L ALT (<35) IU/L Alkaline Phosphatase (38-126) U/L Total Creatine Kinase (30-135) U/L CK-MB (CK-2) CK-MB (CK-2) Rel Index Troponin I (0.01-0.034) ng/mL NT-Pro-B Natriuret Pep (<450) pg/mL Total Protein (6.3-8.2) g/dL Albumin (3.5-5.0) g/dL Globulin (1.7-4.1) g/dL Albumin/Globulin Ratio (1.0-2.8) Procalcitonin < 0.05 (<0.5) ng/mL SARS-CoV-2 (PCR) Negative (Negative) 05/03/20 Range/Units 17:18 WBC (4.5-11.0) X10^3/uL RBC (4.0-5.2) X10^6/uL Hgb (12.0-16.0) g/dL Hct (36-46) % MCV (80-100) fL MCH (26-34) PG MCHC (30-36) % RDW (11.6-14.8) % Plt Count (150-400) X10^3/uL Neut % (Auto) (50-75) % Lymph % (Auto) (25-40) % Cuming % (Auto) (3-14) % Eos % (Auto) (2-4) % Baso % (Auto) (0-2) % Neut # (Auto) (6845-1511) /uL Lymph # (Auto) (1839-1418) /uL Cuming # (Auto) (0-900) /uL Eos # (Auto) (0-450) /uL Baso # (Auto) (0-100) /uL PT (10.1-12.7) SECONDS INR (0.9-1.3) APTT (26.4-36.2) SECONDS Sodium (137-145) mmol/L Potassium (3.4-5.1) mmol/L Chloride (98-107) mmol/L Carbon Dioxide (22-32) mmol/L BUN (7-17) mg/dL Creatinine (0.52-1.04) mg/dL Estimated GFR (>60) mL/min BUN/Creatinine Ratio (6-22) Glucose (80-110) mg/dL Lactate 1.6 (0.7-2.1) mmol/L Calcium (8.4-10.2) mg/dL Magnesium (1.6-2.3) mg/dL Total Bilirubin (0.2-1.3) mg/dL AST (14-36) IU/L ALT (<35) IU/L Alkaline Phosphatase (38-126) U/L Total Creatine Kinase (30-135) U/L CK-MB (CK-2) CK-MB (CK-2) Rel Index Troponin I (0.01-0.034) ng/mL NT-Pro-B Natriuret Pep (<450) pg/mL Total Protein (6.3-8.2) g/dL Albumin (3.5-5.0) g/dL Globulin (1.7-4.1) g/dL Albumin/Globulin Ratio (1.0-2.8) Procalcitonin (<0.5) ng/mL SARS-CoV-2 (PCR) (Negative) Urine Dip Bedside Urine Glucose Negative Bedside Urine Bilirubin - Negative Bedside Urine Ketone - Negative Urine Specific Powell 1.015 Bedside Urine Occult Blood - Negative Bedside Urine pH 6.0 Bedside Urine Protein - Negative Bedside Urine Urobilinogen - Negative Bedside Urine Nitrite - Negative Bedside Urine Leukocytes - Negative Esterase Imaging Data Chest x-ray: Radiologist's Impression: PROCEDURE: XR CHEST 1V INDICATIONS: sob TECHNIQUE: One view of the chest was acquired. COMPARISON: [facility], CT, CT ANGIO CHEST PE, 11/08/2015, 19:00. [facility], CR, XR CHEST 2VW, 11/12/2015, 7:51. [facility], , CHEST 2 VIEW, 11/20/2015, 17:09. FINDINGS: Surgical changes and devices: None. Lungs and pleura: There are diffuse bilateral linear perihilar opacities consistent with scarring seen on prior chest CT. No pneumothorax. No pleural effusion. Mediastinum: Mediastinal contours appear normal. Heart size is normal. Bones and chest wall: No suspicious bony lesions. Overlying soft tissues appear unremarkable. IMPRESSION: Linear perihilar airspace opacities are likely scarring which was seen on prior chest CT. A component of mild CHF is also a possibility. Dictated by: Lonnie Ernandez M.D. on 05/03/2020 at 14:48 ECG Data Attestation: I personally reviewed and interpreted this ECG as follows: Prior ECG tracings: available for review Interpretation: Normal sinus rhythm rate 75 p.r. interval 138 QRS 96 QTC 459 Q- wave noted in lead 3 similar to previous EKG in 2015 it remains unchanged no ST changes or T-wave inversions MDM Narrative Medical decision making narrative: The patient's echocardiogram from earlier clear this much does show elevated diastolic filling pressures. She is supposed to be on Lasix daily but she is non compliant. She has been taking it once a day for about 1 week. She is given a dose of Lasix in the ED she has urinated few time she overall is feeling a little bit better. At this time likely a CHF exacerbation recommend increasing Lasix to twice daily follow-up closely as an outpatient and return as needed. Discharge Plan Departure Patient Disposition: Home Clinical Impression: CHF (congestive heart failure) Instructions: Heart Failure Activity Restrictions/Additional Instructions: *You have been diagnosed with congestive heart failure *What to do: Please be sure to follow-up with her primary care provider and take your medications as directed. I recommend low-salt diet. Weight your self daily to see if you are retaining water. If you are retaining water your medication may need to be increased in please talk to your doctor *Continue to take medications as directed Lasix/furosemide 40 mg twice a day for 3 days and then return to once daily *Follow up with your primary care provider in 2-3 days *Return to ER if you should have increasing shortness of breath, chest pain, leg swelling or any new, worsening or concerning symptoms Prescriptions: No Action multivitamin Tablet 2 tab PO DAILY Qty: 0 RF: 0 amlodipine-benazepril 10-20 mg capsule 1 cap PO DAILY Qty: 90 RF: 3 acetaminophen 500 mg capsule 500 mg PO Q6H PRNRF: 0 potassium chloride 10 mEq capsule, extended release 10 meq PO DAILY Qty: 90 RF: 0 metronidazole 0.75 % cream 1 applic TOPICAL DIRECTED RF: 0 furosemide [Lasix] 40 mg tablet 40 mg PO DAILY RF: 0 Referrals: Herb Graves MD [Primary Care Provider] -
[2020-05-03 14:48] LABS: Add Manual Diff / Slide Review NO; Basophils Absolute Auto 100 /uL (0-100); Basophils Percent Auto 0.9 % (0-2); Eosinophils Absolute Auto 100 /uL (0-450); Eosinophils Percent Auto 1.4 % (2-4); Hematocrit 39.3 % (36-46); Hemoglobin 12.3 g/dL (12.0-16.0); Lymphocytes Absolute Auto 1200 /uL (1100-4500); Lymphocytes Percent Auto 16.9 % (25-40); Mean Corpuscular HGB Conc 31.4 % (30-36); Mean Corpuscular Hemoglobin 28.3 PG (26-34); Mean Corpuscular Volume 90.3 fL (80-100); Monocytes Absolute Auto 600 /uL (0-900); Monocytes Percent Auto 7.9 % (3-14); Neutrophils Absolute Auto 5200 /uL (1500-7000); Neutrophils Percent Auto 72.9 % (50-75); Platelet Count 292 X10^3/uL (150-400); Red Blood Cell Count 4.35 X10^6/uL (4.0-5.2); Red Cell Distribution Width 14.5 % (11.6-14.8); White Blood Cell Count 7.1 X10^3/uL (4.5-11.0)
[2020-05-03 14:58] LABS: INR 1.1 (0.9-1.3); Prothrombin Time 12.5 SECONDS (10.1-12.7)
[2020-05-03 15:01] LABS: PTT Partial Thromboplastin Tim 35 SECONDS (26.4-36.2)
[2020-05-03 15:05] LABS: Alanine Aminotransferase 22 IU/L (<35); Albumin 4.1 g/dL (3.5-5.0); Albumin Globulin Ratio 1.4 (1.0-2.8); Alkaline Phosphatase 30 U/L (38-126); Aspartate Aminotransferase 21 IU/L (14-36); BUN Creatinine Ratio 37.3 (6-22); Bilirubin Total 0.5 mg/dL (0.2-1.3); Blood Urea Nitrogen 22 mg/dL (7-17); Calcium 9.7 mg/dL (8.4-10.2); Carbon Dioxide 30 mmol/L (22-32); Chloride 103 mmol/L (98-107); Creatine Kinase 40 U/L (30-135); Estimated Glomerular Filt Rate > 60.0 mL/min (>60); Globulin 2.9 g/dL (1.7-4.1); Glucose 131 mg/dL (80-110); HEMOLYSIS < 15 (0-50); Lactate (Lactic Acid) 2.5 mmol/L (0.7-2.1); Magnesium 1.8 mg/dL (1.6-2.3); Sodium 139 mmol/L (137-145)
[2020-05-03 15:13] LABS: COVID19 -Nasal RAPID Negative (Negative)
[2020-05-03 15:16] LABS: NT-proBNP (BNP-Adult 18+) 179 pg/mL (<450); Troponin I < 0.012 ng/mL (0.01-0.034)
[2020-05-03 15:20] LABS: Procalcitonin < 0.05 ng/mL (<0.5)
[2020-05-03] MEDS: FUROSEMIDE 40 MG/4 ML VIAL IV (15:58)
[2020-05-03 16:44] LABS: Reflexed Lactate in 2 Hours Y
[2020-05-03 17:44] LABS: Lactate 2HR (Lactic Acid Rflx) 1.6 mmol/L (0.7-2.1)
== END 2020-05-03 18:22 | disposition home or self-care (01) ==
PROVIDERS: Emergency Provider Emergency Medicine; PCP Student in an Organized Health Care Education/Training Program
DX: I50.9 Heart failure, unspecified (principal); I10 Essential (primary) hypertension; R60.0 Localized edema; Z20.828 Contact with and (suspected) exposure to other viral communicable diseases
CPT/HCPCS: 36415; 71045; 80053; 81003; 82550; 83605; 83735; 83880; 84145; 84484; 85025; 85610; 85730; 87040; 87635; 93005; 96374; 99283; 99284; J1940

== ENCOUNTER → 2020-05-09 12:52 | Outpatient (CLI) | payer MEDICARE, SELFPAY ==
--- NOTE | 2020-05-09 | DI.CT.S_ITS ---
PROCEDURE: CT CHEST ABD PEL W CON INDICATIONS: Malignant neoplasm of endometrium TECHNIQUE: After the administration of oral and intravenous contrast, 5 mm thick sections acquired from the lung apices to the symphysis. 5 mm coronal and sagittal reformats were performed, with additional 7 mm coronal MIP reformats through the lungs. For radiation dose reduction, the following was used: automated exposure control, adjustment of mA and/or kV according to patient size. COMPARISON: [facility], CT, CT CHEST ABDOMEN PELVIS WITH CONTRAST, 11/08/2018, 11:04. [facility], NM, PET NECK TO MID THIGH, 05/25/2019, 13:28. [facility], CT, CT CHEST ABD PEL W CON, 01/31/2020, 13:49. FINDINGS: Image quality: Excellent. CHEST: Lungs and pleura: Background of mosaic attenuation is similar to the prior exams. A few tiny pulmonary nodules. Streaky opacity in the left upper lobe is most compatible with atelectasis or scarring. Left upper lobe 2 mm pulmonary nodule, (/75), unchanged. Left upper lobe 3 mm, (5/112). A few calcified granuloma. No pleural effusions or pneumothorax. Central and peripheral airways appear patent and normal in caliber. Mediastinum: Heart size is prominent. No pericardial effusion. No mediastinal or hilar adenopathy by size criteria. Thoracic aorta and central pulmonary arteries are normal in size. Esophagus is normal in caliber. No hiatal hernia. Chest wall: No axillary or supraclavicular adenopathy by size criteria. Left thyroidectomy. ABDOMEN: Solid organs: Liver is prominent in size and enhancement. No focal lesion. Gallbladder distended with gallstones. Biliary system is non dilated. Pancreas enhances normally. Spleen is normal in size and enhancement. No adrenal nodules. Kidneys demonstrate normal size and enhancement, without hydronephrosis. Small simple cysts in the right kidney. Peritoneum and bowel: Bowel loops demonstrate normal wall thickness and caliber. Normal appendix. No free fluid or air. Nodes and vessels: Left periaortic retroperitoneal soft tissue thickening measuring 1.5 x 1.1 cm, (), previously 1.4 x 1.2 cm, and more remotely 1.9 x 1.6 cm. This previously demonstrated a focal FDG avidity. Aorta and inferior vena cava are normal in size. Moderate calcified atherosclerotic plaque. Miscellaneous: No ventral hernias. Ventral abdominal wall scar. PELVIS: Genitourinary: Bladder wall thickness is normal. Uterus is absent. Unremarkable vaginal cuff. Miscellaneous: No inguinal hernias or adenopathy. Bones: No suspicious bony lesions. Bilateral hip arthroplasties. Moderate DDD. No vertebral body compression fractures. IMPRESSION: 1. No new or enlarging sites of metastatic disease. 2. Left periaortic node is not significantly changed in decreased from October 2019. 3. Post hysterectomy. Unremarkable vaginal cuff. 4. Gallstones. 5. Mild mosaic attenuation of the lung parenchyma similar to the prior exam. This could be due to air trapping or small vessels disease. A few tiny pulmonary nodules are stable. Dictated by: Aaron Jacobo M.D. on 05/09/2020 at 13:52 Approved by: Aaron Jacobo M.D. on 05/09/2020 at 14:18
== END ==
PROVIDERS: PCP Student in an Organized Health Care Education/Training Program; Referring Provider Student in an Organized Health Care Education/Training Program; Visit Provider Internal Medicine Hematology & Oncology
DX: C54.1 Malignant neoplasm of endometrium (principal); R91.8 Other nonspecific abnormal finding of lung field; K80.20 Calculus of gallbladder without cholecystitis without obstruction; Z90.710 Acquired absence of both cervix and uterus
CPT/HCPCS: 71260; 74177; Q9967

== ENCOUNTER → 2020-07-02 17:20 | Outpatient (CLI) | payer MEDICARE, SELFPAY | PROVIDERS: PCP Student in an Organized Health Care Education/Training Program; Visit Provider Obstetrics & Gynecology | DX: N39.46 Mixed incontinence (principal) | CPT/HCPCS: 87086 ==

== ENCOUNTER → 2020-07-13 09:25 | Outpatient (CLI) | payer MEDICARE, SELFPAY ==
[2020-07-13 10:08] LABS: BUN Creatinine Ratio 39.7 (6-22); Blood Urea Nitrogen 29 mg/dL (7-17); Calcium 9.7 mg/dL (8.4-10.2); Carbon Dioxide 28 mmol/L (22-32); Chloride 106 mmol/L (98-107); Cholesterol 187 mg/dL (140-199); Estimated Glomerular Filt Rate > 60.0 mL/min (>60); Glucose 116 mg/dL (80-110); HDL Cholesterol 40 mg/dL (40-60); HEMOLYSIS < 15 (0-50); LDL Cholesterol Calculated 121 mg/dL (<100); Potassium 4.9 mmol/L (3.4-5.1); Sodium 138 mmol/L (137-145); Triglycerides 131 mg/dL (35-150)
[2020-07-13 10:59] LABS: Thyroid Stimulating Hormone 2.18 uIU/mL (0.47-4.68)
== END ==
PROVIDERS: PCP Student in an Organized Health Care Education/Training Program; Referring Provider Internal Medicine Cardiovascular Disease; Visit Provider Internal Medicine Cardiovascular Disease
DX: I10 Essential (primary) hypertension (principal)
CPT/HCPCS: 36415; 80048; 80061; 84443

== ENCOUNTER → 2020-08-30 13:00 | Outpatient (CLI) | payer MEDICARE, SELFPAY ==
[2020-08-30 13:26] LABS: COVID19 -Nasal RAPID Negative (Negative)
== END ==
PROVIDERS: PCP Student in an Organized Health Care Education/Training Program; Visit Provider Specialist
DX: Z20.822 Contact with and (suspected) exposure to COVID-19 (principal)
CPT/HCPCS: 87635; C9803

== ENCOUNTER 2020-08-31 08:53 | Day surgery (SDC) | payer MEDICARE, SELFPAY ==
[2020-08-29 12:12] VITALS: BMI 42.2
[2020-08-31 09:35] VITALS: BP 158/70; PULSE 66; RESP 18; TEMP 36.4; O2SAT 94; BMI 42.2
== END 2020-08-31 08:55 | disposition home or self-care (01) ==
PROVIDERS: PCP Student in an Organized Health Care Education/Training Program; Referring Provider Student in an Organized Health Care Education/Training Program; Visit Provider Specialist
DX: Z53.09 Procedure and treatment not carried out because of other contraindication (principal)

== ENCOUNTER → 2020-09-06 11:00 | Outpatient (CLI) | payer MEDICARE, SELFPAY ==
[2020-09-06 11:26] LABS: COVID19 -Nasal RAPID Negative (Negative)
== END ==
PROVIDERS: PCP Student in an Organized Health Care Education/Training Program; Visit Provider Specialist
DX: Z20.822 Contact with and (suspected) exposure to COVID-19 (principal)
CPT/HCPCS: 87635; C9803

== ENCOUNTER 2020-09-07 07:48 | Day surgery (SDC) | payer MEDICARE, SELFPAY ==
[2020-09-03 12:27] VITALS: BMI 42.2
[2020-09-07] VITALS (9 sets, daily range): BP systolic 112–176; BP diastolic 54–70; PULSE 56–80; RESP 12–18; TEMP 36.2–36.8; O2SAT 94–99; BMI 42.2
[2020-09-07] MEDS: LACTATED RINGERS 1,000 ML 42 ML IV (08:44)
[2020-09-07] MEDS: ACETAMINOPHEN 325 MG TABLET 975 MG PO (08:46)
--- NOTE | 2020-09-07 09:08 | PM.PREOP ---
Pre-operative Note Interval Note History & Physical reviewed/Exam performed by Physician: Yes Changes to H&P: No
[2020-09-07] MEDS: CEFAZOLIN VIAL 3 GM in SODIUM CHLORIDE 0.9% 100 ML 200 ML IV (09:42)
--- NOTE | 2020-09-07 10:13 | SUR.OPER ---
Lithotomy on padded OR bed, head on pillow, arms secured on padded arm boards at <90 degrees abduction. Legs secured in padded yellow fins stirrups.
[2020-09-07] MEDS: BUPIVACAINE 0.5% W/ EPI (PF) 30 ML VIAL INJ (10:22)
--- NOTE | 2020-09-07 10:56 | PM.OP.1 ---
Operative Date/Time/Diagnoses Date of procedure: 09/07/20 Time of procedure: 10:57 Pre-op diagnosis: Stress urinary incontinence Post-op diagnosis: same Procedure & Clinicians Procedure: 1. Trans obturator suburethral sling (Obtryx). Same procedure as scheduled: Yes Indications: 1. Stress urinary incomplete Surgeon: Izabella Nascimento Click Yes if Unassisted: Yes Anesthesia Type: General and Local (0.5% Marcaine with epinephrine) Operative Notes Findings: 1. In abundance of subcutaneous perineal fat grading difficulty identifying pelvic bony landmarks. 2. Recessed urethra due to abundance of perineal fat. Closure Type: primary Specimen(s): none sent Prosthetic devices, grafts, tissues, transplants, or devices: Obtryx mesh trans obturator sling Applied: catheter (16. Mauritanian Bloom catheter) Estimated Blood Loss (mL): 300 Blood products transfused: none Tourniquet time (min): 0 Procedure in detail: Patient was positioned supine administered general anesthesia. She was then positioned in semi lithotomy and the lower abdomen, groin, perineum, and vaginal vault were prepped and draped in sterile fashion. A 16 Maur[place] Bloom catheter was then inserted in the bladder and the contents drained. The balloon was inflated 10 cc. Next local anesthetic was used to infiltrate the skin and subcutaneous tissue overlying the superior medial aspect of the obturator foramen and the midline anterior vaginal wall over the urethra. A vertical midline incision was made over the midline mid urethra. Metzenbaum scissor was then used to perforate the endopelvic fascia and gain digital access to the posterior aspect of the pubic symphysis on both sides. Next, small incisions were made in the perineum lateral to the level of the clitoris. Obturator foramen. Next, helical transfer needles were replaced appropriately from the perineum through the superior medial aspect of the obturator foramen through a short distance of the retropubic space and then out through the paravaginal tissue lateral to the mid urethra on either side. The mesh was prepared and attached to the helical transfer needles appropriately. The helical transfer needles were then withdrawn positioning the midpoint of the mesh over the midpoint of the mid urethra. A Metzenbaum scissor was then position between the mesh and the mid urethra. The mesh was then gently tensioned before the midline plastic clip was removed. The mesh and cellophane distal to the perineal incisions was then transected and the overlying cellophane and excess mesh were excised and discarded. Interrupted for subcutaneous 4-0 Monocryl were then used to close the perineal incisions. The skin surface was then cleaned and dried and small op-site were applied to the skin surface. Two 0 Monocryl was then used in a running locking fashion to close the anterior vaginal wall over the mid urethra. Hemostasis was excellent. The Bloom catheter was placed to gravity drainage. The patient was then repositioned in supine, was awakened, and transferred to [facility] for transportation to PACU. Complications: none Post-operative Condition: stable Disposition: PACU Plan for aftercare: Discharge home
[2020-09-07] MEDS: hydrOXYzine pamoate 25 MG CAPSULE PO (11:32)
[2020-09-07] MEDS: HYDROCODONE/ACET 5/325 TABLET 1 TAB PO (12:23)
--- NOTE | 2020-09-07 13:59 | SUR.PHASEII ---
Dr Nascimento notified that rx were incorrectly sent to [facility] pharmacy. Correction will be made to resend to the local [facility] pharm.
== END 2020-09-07 12:42 | disposition home or self-care (01) ==
PROVIDERS: PCP Student in an Organized Health Care Education/Training Program; Referring Provider Specialist; Visit Provider Specialist
PROC: (CPT 57288; principal; 2020-09-07 09:00)
DX: N39.3 Stress incontinence (female) (male) (principal); I10 Essential (primary) hypertension; N95.2 Postmenopausal atrophic vaginitis; E66.01 Morbid (severe) obesity due to excess calories; E78.5 Hyperlipidemia, unspecified; J45.909 Unspecified asthma, uncomplicated; G47.33 Obstructive sleep apnea (adult) (pediatric); Z68.41 Body mass index [BMI] 40.0-44.9, adult
CPT/HCPCS: 57288; 82962; C1781; J0690; J2250; J2405; J2704; J3010

== ENCOUNTER → 2020-11-05 09:49 | Outpatient (CLI) | payer MEDICARE, SELFPAY ==
[2020-11-05 10:52] LABS: Alanine Aminotransferase 23 IU/L (<35); Albumin Globulin Ratio 1.4 (1.0-2.8); Alkaline Phosphatase 31 U/L (38-126); Aspartate Aminotransferase 19 IU/L (14-36); Bilirubin Total 0.4 mg/dL (0.2-1.3); Blood Urea Nitrogen 32 mg/dL (7-17); Carbon Dioxide 25 mmol/L (22-32); Chloride 106 mmol/L (98-107); Estimated Glomerular Filt Rate > 60.0 mL/min (>60); Globulin 2.9 g/dL (1.7-4.1); Glucose 114 mg/dL (80-110); HEMOLYSIS < 15 (0-50); Potassium 5.3 mmol/L (3.4-5.1); Sodium 137 mmol/L (137-145); Total Protein 6.9 g/dL (6.3-8.2)
[2020-11-05 10:59] LABS: Add Manual Diff / Slide Review NO; Basophils Absolute Auto 0 /uL (0-100); Basophils Percent Auto 0.5 % (0-2); Eosinophils Absolute Auto 100 /uL (0-450); Eosinophils Percent Auto 1.5 % (2-4); Hematocrit 39.8 % (36-46); Lymphocytes Absolute Auto 1500 /uL (1100-4500); Mean Corpuscular HGB Conc 32.6 % (30-36); Mean Corpuscular Hemoglobin 29.3 PG (26-34); Monocytes Absolute Auto 600 /uL (0-900); Monocytes Percent Auto 7.7 % (3-14); Neutrophils Absolute Auto 5000 /uL (1500-7000); Neutrophils Percent Auto 69.3 % (50-75); Platelet Count 251 X10^3/uL (150-400); Red Blood Cell Count 4.43 X10^6/uL (4.0-5.2); Red Cell Distribution Width 14.5 % (11.6-14.8); White Blood Cell Count 7.2 X10^3/uL (4.5-11.0)
[2020-11-05 11:23] LABS: Cancer Antigen 125 6.3 U/mL (0-35)
== END ==
PROVIDERS: PCP Student in an Organized Health Care Education/Training Program; Referring Provider Internal Medicine Hematology & Oncology; Visit Provider Internal Medicine Hematology & Oncology
DX: C54.1 Malignant neoplasm of endometrium (principal)
CPT/HCPCS: 36415; 80053; 85025; 86304

== ENCOUNTER → 2020-11-15 12:33 | Outpatient (CLI) | payer MEDICARE, SELFPAY ==
[2020-11-15 15:05] LABS: BUN Creatinine Ratio 33.3 (6-22); Blood Urea Nitrogen 23 mg/dL (7-17); Calcium 9.9 mg/dL (8.4-10.2); Carbon Dioxide 27 mmol/L (22-32); Chloride 100 mmol/L (98-107); Estimated Glomerular Filt Rate > 60.0 mL/min (>60); Glucose 87 mg/dL (80-110); HEMOLYSIS < 15 (0-50); Potassium 4.8 mmol/L (3.4-5.1); Sodium 133 mmol/L (137-145)
== END ==
PROVIDERS: PCP Student in an Organized Health Care Education/Training Program; Referring Provider Internal Medicine Cardiovascular Disease; Visit Provider Internal Medicine Cardiovascular Disease
DX: I50.32 Chronic diastolic (congestive) heart failure (principal)
CPT/HCPCS: 36415; 80048

== ENCOUNTER → 2020-11-23 13:13 | Outpatient (CLI) | payer MEDICARE, SELFPAY ==
[2020-11-23 14:44] LABS: BUN Creatinine Ratio 46.7 (6-22); Blood Urea Nitrogen 35 mg/dL (7-17); Carbon Dioxide 26 mmol/L (22-32); Chloride 102 mmol/L (98-107); Estimated Glomerular Filt Rate > 60.0 mL/min (>60); Glucose 89 mg/dL (80-110); HEMOLYSIS < 15 (0-50); Potassium 4.9 mmol/L (3.4-5.1); Sodium 136 mmol/L (137-145)
== END ==
PROVIDERS: PCP Student in an Organized Health Care Education/Training Program; Referring Provider Internal Medicine Cardiovascular Disease; Visit Provider Internal Medicine Cardiovascular Disease
DX: E87.1 Hypo-osmolality and hyponatremia (principal)
CPT/HCPCS: 36415; 80048

== ENCOUNTER → 2021-02-26 16:53 | Outpatient (CLI) | payer MEDICARE, SELFPAY ==
[2021-02-26 17:57] LABS: BUN Creatinine Ratio 24.5 (6-22); Blood Urea Nitrogen 27 mg/dL (7-17); Calcium 9.6 mg/dL (8.4-10.2); Carbon Dioxide 30 mmol/L (22-32); Chloride 105 mmol/L (98-107); Estimated Glomerular Filt Rate 47.7 mL/min (>60); Glucose 104 mg/dL (80-110); HEMOLYSIS < 15 (0-50); Potassium 4.4 mmol/L (3.4-5.1); Sodium 141 mmol/L (137-145)
== END ==
PROVIDERS: PCP Student in an Organized Health Care Education/Training Program; Referring Provider Internal Medicine Cardiovascular Disease; Visit Provider Internal Medicine Cardiovascular Disease
DX: I10 Essential (primary) hypertension (principal)
CPT/HCPCS: 36415; 80048

== ENCOUNTER → 2021-03-20 15:12 | Outpatient (CLI) | payer MEDICARE, SELFPAY ==
--- NOTE | 2021-03-20 15:13 | DI.MG.S_ITS ---
BILATERAL DIGITAL SCREENING MAMMOGRAM 3D/2D WITH CAD: 03/20/2021 CLINICAL: Routine screening. Comparison is made to exams dated: 03/16/2020 mammogram, 11/18/2016 mammogram, and 02/15/2014 mammogram - [facility]. There are scattered fibroglandular elements in both breasts. Current study was also evaluated with a Computer Aided Detection (CAD) system. No significant masses, calcifications, or other findings are seen in either breast. There has been no significant interval change. IMPRESSION: NEGATIVE There is no mammographic evidence of malignancy. A 1 year screening mammogram is recommended. This exam was interpreted at Station ID: [id number]. NOTE: For mammograms, a report in lay terms will be sent to the patient. Approximately 15% of breast malignancies will not be visualized mammographically. In the management of a palpable breast mass, a negative mammogram must not discourage biopsy of a clinically suspicious lesion. Electronically Signed By: Gallo lancaster/karlie:03/20/2021 16:57:06 copy to: [facility]Z letter sent: Normal Exam ACR BI-RADS Category 1: Negative [id number]
== END ==
PROVIDERS: PCP Student in an Organized Health Care Education/Training Program; Referring Provider Student in an Organized Health Care Education/Training Program; Visit Provider Student in an Organized Health Care Education/Training Program
DX: Z12.31 Encounter for screening mammogram for malignant neoplasm of breast (principal)
CPT/HCPCS: 77063; 77067

== ENCOUNTER → 2021-12-05 14:40 | Outpatient (CLI) | payer MEDICARE, SELFPAY ==
[2021-12-05 21:04] LABS: BUN Creatinine Ratio 32.3 (6-22); Blood Urea Nitrogen 21 mg/dL (7-17); Calcium 9.3 mg/dL (8.4-10.2); Carbon Dioxide 28 mmol/L (22-32); Chloride 97 mmol/L (98-107); Estimated Glomerular Filt Rate > 60 mL/min (>60); Glucose 92 mg/dL (80-110); HEMOLYSIS < 15 (0-50); Potassium 4.4 mmol/L (3.4-5.1); Sodium 135 mmol/L (137-145)
== END ==
PROVIDERS: PCP Student in an Organized Health Care Education/Training Program; Referring Provider Internal Medicine Cardiovascular Disease; Visit Provider Internal Medicine Cardiovascular Disease
DX: I50.32 Chronic diastolic (congestive) heart failure (principal)
CPT/HCPCS: 36415; 80048

== ENCOUNTER → 2022-01-01 10:29 | Outpatient (CLI) | payer MEDICARE, SELFPAY | PROVIDERS: PCP Student in an Organized Health Care Education/Training Program; Visit Provider Physician Assistant | DX: N39.0 Urinary tract infection, site not specified (principal) | CPT/HCPCS: 87077; 87086; 87186 ==

== ENCOUNTER 2022-01-07 07:04 | Inpatient (IN) | payer MEDICARE, SELFPAY ==
[2022-01-07] VITALS (18 sets, daily range): BP systolic 148–203; BP diastolic 69–99; PULSE 68–113; RESP 18–36; TEMP 36.4–36.7; O2SAT 75–95; BMI 43.0; BMI 43.4
--- NOTE | 2022-01-07 07:18 | ED.SOB ---
HPI - SOB/Dyspnea General Chief Complaint: Shortness of Breath/Dyspnea Stated Complaint: Trouble breathing x a wk Time Seen by Provider: 01/07/22 07:11 Source: patient Mode of arrival: Ambulatory History of Present Illness HPI Narrative: This 81-year-old woman comes to the ER today because of breathlessness and chest pain. Over the past couple of weeks she has been treated for a urinary tract infection and completed her antibiotics about 4 or 5 days ago. Over the past week she is had a cough that has been productive but not bloody. She is had shortness of breath with exertion all week and some mid chest pain associated with the exertion as well. She does not use home oxygen. She has not had a documented fever but does report chills. No nausea, vomiting or diarrhea. No abdominal pain. 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 Related Data Home Medications Medication Instructions Recorded Confirmed multivitamin 2 tab PO DAILY ##0 09/23/12 12/17/21 metronidazole 0.75 % topical cream 1 applic topical DIRECTED 06/23/19 12/17/21 albuterol 90 mcg/actuation aerosol 90 mcg inhalation Q6H PRN 08/28/20 12/17/21 inhaler Shortness Of Breath biotin 800 mcg tablet 800 mcg PO DAILY 08/31/20 12/17/21 cholecalciferol (vitamin D3) 25 50 mcg PO DAILY 08/31/20 12/17/21 mcg (1,000 unit) capsule (Vitamin D3) acetaminophen 500 mg capsule 1,000 mg PO Q6H PRN Pain 07/29/21 12/17/21 Respironics [email or web address] 12/09/21 12/17/21 atorvastatin 20 mg tablet 20 mg PO DAILY 12/12/21 12/17/21 hydrochlorothiazide 12.5 mg tablet 12.5 mg PO DAILY 12/17/21 12/17/21 valsartan 160 mg tablet 160 mg PO DAILY 12/17/21 12/17/21 Previous Rx's Medication Instructions Recorded estradiol 0.01% (0.1 mg/gram) See Rx Instructions .Route 11/25/21 vaginal cream .COMPLEX #42.5 grams Allergies Allergy/AdvReac Type Severity Reaction Status Date / Time oxycodone Allergy Verified 01/01/22 10:40 codeine AdvReac Mild NAUSEA Verified 01/01/22 10:40 adhesive tape AdvReac Unknown removes my Verified 01/01/22 10:40 skin Review of Systems Review of Systems Narrative: Complete review of systems is negative other than as noted above. Patient History Medical History Arthritis Endometrial cancer High blood pressure Malignant neoplasm of endometrium (10/30/15) Mixed incontinence Morbid obesity with body mass index (BMI) of 40.0 to 49.9 (~10/30/15) Neuropathy Obesity (10/30/15) Obstructive sleep apnea syndrome (10/30/15) Postmenopausal atrophic vaginitis Shortness of breath on exertion Surgical History History of hip replacement History of hip replacement History of tonsillectomy Hx of cataract surgery Status post delivery Status post delivery Status post surgery (05/26/14) Status post surgery (09/24/15) Family History Daughter Cancer Father Cerebrovascular accident (stroke) Hypertension Social History marital status: number of children: 2 household members: spouse Smoking Status: Never smoker alcohol intake: current Smoking Status: Never smoker alcohol intake frequency: holidays/special occasions only Substance Use Type: does not use Exam Narrative Exam Narrative: GENERAL: Alert, cooperative and in no distress. HEAD: Atraumatic. Normocephalic. EYES: Sclera are clear without icterus. Extraocular movements are full. ENT: No rhinorrhea. Oropharynx is moist. Mouth exam is benign. NECK: Supple. Full range of motion. CARDIOVASCULAR: Normal rate and rhythm without murmur gallop or rub. RESPIRATORY: Good air movement throughout. Some scattered rhonchi, no wheezes, no rales. GASTROINTESTINAL: Abdomen soft, non-tender, nondistended. EXTREMITIES: Symmetrical 1+ edema below the knees, full range of motion. No obvious trauma. BACK: Normal inspection, no CVA tenderness. NEURO: Nonfocal examination, normal speech, normal gait. SKIN: No rash or erythema of visible areas PSYCH: Normally oriented. Normal range of affect. Appropriate behavior Initial Vital Signs Initial Vital Signs: Vital Signs Temperature 98.0 F 01/07/22 07:08 Pulse Rate 113 H 01/07/22 07:08 Respiratory Rate 34 H 01/07/22 07:08 Blood Pressure 155/96 H 01/07/22 07:08 Pulse Oximetry 75 L 01/07/22 07:08 Oxygen Delivery Method 01/07/22 07:08 Course Course Course Narrative: Upon arrival this woman is severely hypoxic and anxious, tachycardic and tachypneic but not febrile. Just standing by her and talking to her were able to help her feel more relaxed while she is administered supplemental oxygen. Not clear to me whether this is infectious, obstructive, cardiac ischemia versus CHF exacerbation versus sepsis. Broad-spectrum evaluation to help differentiate this. Current time is 9:[address] Winston who agrees to admit the patient for CHF exacerbation. Decision to Admit Date: 01/07/22 Decision to Admit time: 09:39 Orders Ordered: ED Orders 01/07/22 07:15 Complete Blood Count AUTO DIFF Stat Comprehensive Metabolic Panel Stat Lactate (Lactic Acid) Stat Lipase Stat NT-proBNP (BNP-Adult 18+) Stat Procalcitonin Stat Troponin & CK Cardiac Panel Stat 01/07/22 07:20 Sputum Culture Stat 01/07/22 07:21 XR chest 1V Stat EKG-12 Lead Stat 01/07/22 07:23 CT angio chest PE protocol Stat Urinalysis and Microscopic Stat 01/07/22 07:44 COVID19 -Nasal RAPID/Pre-Proc Stat 01/07/22 08:00 Blood Culture Stat 01/07/22 09:09 UA Complete [Urinalysis and Microscopic] Stat Sodium Chloride (Normal Saline 0.9%) 1,000 mls @ 150 mls/hr IV CONT JOSE Last Admin: 01/07/22 08:25 Dose: 150 mls/hr Documented By: LUPE Discontinued Medications Albuterol (Albuterol 2.5 Mg/3 Ml Neb (Adult)) 2.5 mg INH NOW ONE Stop: 01/07/22 07:31 Last Admin: 01/07/22 07:41 Dose: 2.5 mg Documented By: CAROLEE Aspirin (Aspirin 81 Mg Chew Tab) 324 mg PO NOW ONE Stop: 01/07/22 07:22 Last Admin: 01/07/22 08:24 Dose: 324 mg Documented By: LUPE Vital Signs Vital signs: Vital Signs - 8 hr 01/07/22 07:08 01/07/22 07:11 01/07/22 07:13 Temperature 98.0 F Pulse Rate 113 H 101 H Respiratory Rate 34 H Blood Pressure 155/96 H 155/96 H Pulse Oximetry 75 L 93 Oxygen Delivery Method Room Air Oxygen Flow Rate 01/07/22 07:13 01/07/22 07:30 01/07/22 07:30 Temperature Pulse Rate 97 H 84 Respiratory Rate 25 H Blood Pressure 173/84 H Pulse Oximetry 94 94 Oxygen Delivery Method Oxygen Flow Rate 01/07/22 08:00 01/07/22 08:00 01/07/22 08:17 Temperature Pulse Rate 86 Respiratory Rate 26 H Blood Pressure 185/87 H 203/98 H Pulse Oximetry 92 Oxygen Delivery Method Nasal Cannula Oxygen Flow Rate 4 01/07/22 08:17 01/07/22 08:30 01/07/22 08:30 Temperature Pulse Rate 93 H 85 Respiratory Rate 36 H 29 H Blood Pressure 201/99 H Pulse Oximetry 94 93 Oxygen Delivery Method Nasal Cannula Oxygen Flow Rate 4 01/07/22 09:00 01/07/22 09:00 01/07/22 09:30 Temperature Pulse Rate 69 Respiratory Rate 22 Blood Pressure 189/77 H 173/80 H Pulse Oximetry 93 Oxygen Delivery Method Oxygen Flow Rate 4 01/07/22 09:30 Temperature Pulse Rate 72 Respiratory Rate 26 H Blood Pressure Pulse Oximetry 84 L Oxygen Delivery Method Room Air Oxygen Flow Rate MDM - SOB/Dyspnea Lab Data Result diagrams: 01/07/22 07:15 01/07/22 07:15 Labs: Lab Results 01/07/22 01/07/22 01/07/22 Range/Units 07:15 07:15 07:15 WBC 10.5 (4.5-11.0) X10^3/uL RBC 4.30 (4.0-5.2) X10^6/uL Hgb 12.4 (12.0-16.0) g/dL Hct 37.6 (36-46) % MCV 87.5 (80-100) fL MCH 28.7 (26-34) PG MCHC 32.9 (30-36) % RDW 13.4 (11.6-14.8) % Plt Count 307 (150-400) X10^3/uL Neut % (Auto) 71.4 (50-75) % Lymph % (Auto) 14.4 L (25-40) % Orange % (Auto) 10.6 (3-14) % Eos % (Auto) 3.0 (2-4) % Baso % (Auto) 0.6 (0-2) % Neut # (Auto) 7500 H (2488-7033) /uL Lymph # (Auto) 1500 (7640-3018) /uL Orange # (Auto) 1100 H (0-900) /uL Eos # (Auto) 300 (0-450) /uL Baso # (Auto) 100 (0-100) /uL Sodium 131 L (137-145) mmol/L Potassium 3.9 (3.4-5.1) mmol/L Chloride 95 L (98-107) mmol/L Carbon Dioxide 28 (22-32) mmol/L BUN 19 H (7-17) mg/dL Creatinine 0.65 (0.52-1.04) mg/dL Estimated GFR > 60 (>60) mL/min BUN/Creatinine Ratio 29.2 H (6-22) Glucose 129 H (80-110) mg/dL Lactate (0.7-2.1) mmol/L Calcium 9.0 (8.4-10.2) mg/dL Total Bilirubin 1.2 (0.2-1.3) mg/dL AST 33 (14-36) IU/L ALT 44 H (<35) IU/L Alkaline Phosphatase 43 (38-126) U/L Total Creatine Kinase 33 (30-135) U/L CK-MB (CK-2) TNP CK-MB (CK-2) Rel Index TNP Troponin I < 0.012 (0.01-0.034) ng/mL NT-Pro-B Natriuret Pep 420 (<450) pg/mL Total Protein 7.2 (6.3-8.2) g/dL Albumin 3.8 (3.5-5.0) g/dL Globulin 3.4 (1.7-4.1) g/dL Albumin/Globulin Ratio 1.1 (1.0-2.8) Lipase 54 (23-300) U/L Procalcitonin 0.14 (<0.5) ng/mL SARS-CoV-2 (PCR) (Negative) 01/07/22 01/07/22 Range/Units 07:15 07:44 WBC (4.5-11.0) X10^3/uL RBC (4.0-5.2) X10^6/uL Hgb (12.0-16.0) g/dL Hct (36-46) % MCV (80-100) fL MCH (26-34) PG MCHC (30-36) % RDW (11.6-14.8) % Plt Count (150-400) X10^3/uL Neut % (Auto) (50-75) % Lymph % (Auto) (25-40) % Orange % (Auto) (3-14) % Eos % (Auto) (2-4) % Baso % (Auto) (0-2) % Neut # (Auto) (3692-4355) /uL Lymph # (Auto) (1610-0769) /uL Orange # (Auto) (0-900) /uL Eos # (Auto) (0-450) /uL Baso # (Auto) (0-100) /uL Sodium (137-145) mmol/L Potassium (3.4-5.1) mmol/L Chloride (98-107) mmol/L Carbon Dioxide (22-32) mmol/L BUN (7-17) mg/dL Creatinine (0.52-1.04) mg/dL Estimated GFR (>60) mL/min BUN/Creatinine Ratio (6-22) Glucose (80-110) mg/dL Lactate 1.4 (0.7-2.1) mmol/L Calcium (8.4-10.2) mg/dL Total Bilirubin (0.2-1.3) mg/dL AST (14-36) IU/L ALT (<35) IU/L Alkaline Phosphatase (38-126) U/L Total Creatine Kinase (30-135) U/L CK-MB (CK-2) CK-MB (CK-2) Rel Index Troponin I (0.01-0.034) ng/mL NT-Pro-B Natriuret Pep (<450) pg/mL Total Protein (6.3-8.2) g/dL Albumin (3.5-5.0) g/dL Globulin (1.7-4.1) g/dL Albumin/Globulin Ratio (1.0-2.8) Lipase (23-300) U/L Procalcitonin (<0.5) ng/mL SARS-CoV-2 (PCR) Negative (Negative) Imaging Data Extremity x-ray #3: Radiologist's Impression: Echocardiogram from March of 2020 ? [facility]? +---------+ : ? :? [address] ? : ? : : ? :? [place] ? : ? : : ? :? [id number] ? : ? : : ? : ? Phone: [phone] ? : +---------[phone]? [phone]? +---------+ ? Echocardiogram Report + + :Name: MARY HAYES ? ? Study Date: 03/09/2020? Height: 61 in? : :Hospital ? Weight: 230 lb : :? Gender: Female? BSA: 2.0 m2? ? : :: 1940 ? Age: 79 yrs ? BP: 196/86 mmHg: :Reason For Study: HYPERTENSIVE URGENCY ? : :? Performed By: Kiana Lamas ? : :Referring: ANTOINE GRAVES? : + + Interpretation Summary 1) Normal left ventricular size, thickness, and systolic function (EF 65-70%). 2) There are no obvious focal wall motion abnormalities noted but poor endocardial definition reduces the sensitivity for the detection of such. 3) Normal right ventricular size and function. 4) Diastolic parameters suggest a pseudonormalization pattern, consistent with probable elevated filling pressures. 5) No significant valvular abnormalities on doppler examination. 6) The right ventricular systolic pressure is estimated to be at least 53 mmHg based on an estimated right atrial pressure of 8 mm Hg. 7) Severe hypertension present during the study (BP 196/86mHg). 8) Compared to the Echo done 11/12/2015, severe hypertension is present on this study. ? Chest x-ray: Radiologist's Impression: IMPRESSION:? Increased interstitial opacities possibly related to edema.? However, areas of pneumonia and/or atelectasis cannot be excluded particularly within the bases. ? ? Dictated by: Batsheva Singh M.D. on 01/07/2022 at 8:39 ? ? Approved by: Batsheva Singh M.D. on 01/07/2022 at 8:40 ? CT scan - chest: Radiologist's Impression: IMPRESSION:? ? 1. No acute pulmonary embolus. ? 2. Geographic ground-glass radiopacities and interlobular septal thickening suggesting pulmonary edema.? Early ARDS could also be considered in the differential diagnosis.? ? ? 3. Trace low-density right pleural effusion.? ? Dictated by: Arleen Castellanos M.D. on 01/07/2022 at 8:40 ? ? Approved by: Arleen Castellanos M.D. on 01/07/2022 at 8:43 ? ECG Data Interpretation: ECG obtained at 7:35 a.m. shows a sinus rhythm at a rate of 83 with a QTC of 470. This is a normal EKG. Discharge Plan Departure Patient Disposition: Admitted As Inpatient Clinical Impression: Acute exacerbation of CHF (congestive heart failure) Prescriptions: No Action multivitamin Tablet 2 tab PO DAILY Qty: 0 acetaminophen 500 mg capsule 1,000 mg PO Q6H PRN (Reason: Pain) Rx Instructions: States taken about every 5-5.5 hours. estradiol 0.01 % (0.1 mg/gram) cream See Rx Instructions .ROUTE .COMPLEX Qty: 42.5 3RF Dose Instruction: INSERT 1 GRAM VAGINALLY TWO TIMES PER WEEK AT BEDTIME DIRECTED Rx Instructions: INSERT 1 GRAM VAGINALLY TWO TIMES PER WEEK AT BEDTIME DIRECTED atorvastatin 20 mg tablet 20 mg PO DAILY valsartan 160 mg tablet 160 mg PO DAILY hydrochlorothiazide 12.5 mg tablet 12.5 mg PO DAILY biotin 800 mcg Tablet 800 mcg PO DAILY Label Comments: PT UNSURE OF DOSE cholecalciferol (vitamin D3) [Vitamin D3] 25 mcg (1,000 unit) Capsule 50 mcg PO DAILY metronidazole 0.75 % cream 1 applic TOPICAL DIRECTED (DME) Respironics [email or web address] See Rx Instructions .Route .MEDSUPPLY Rx Instructions: CPAP Min: 10 Max: 18 DME: [employer] CLEM: 4.23.21 albuterol 90 mcg/actuation aerosol 90 mcg inhalation Q6H PRN (Reason: Shortness Of Breath) Referrals: Antoine Graves MD [Primary Care Provider] -
--- NOTE | 2022-01-07 07:21 | DI.RAD.S_ITS ---
PROCEDURE: XR CHEST 1V INDICATIONS: chest pain TECHNIQUE: One view of the chest was acquired. COMPARISON: [facility], CR, XR CHEST 1V, 05/03/2020, 14:37. FINDINGS: Surgical changes and devices: None. Lungs and pleura: There is increased interstitial opacities particularly within the bases. Mediastinum: Mediastinal contours appear normal. Heart size is enlarged. Bones and chest wall: No suspicious bony lesions. Overlying soft tissues appear unremarkable. IMPRESSION: Increased interstitial opacities possibly related to edema. However, areas of pneumonia and/or atelectasis cannot be excluded particularly within the bases. Dictated by: Batsheva Singh M.D. on 01/07/2022 at 8:39 Approved by: Batsheva Singh M.D. on 01/07/2022 at 8:40
--- NOTE | 2022-01-07 07:23 | DI.CT.S_ITS ---
PROCEDURE: CT ANGIO CHEST PE PROTOCOL INDICATIONS: Chest pain shortness of breath hypoxia and tachycardia TECHNIQUE: After the administration of intravenous contrast, 2 mm thick sections acquired from the pulmonary apices to the posterior costophrenic angles. 3-dimensional maximum intensity projection (MIP) coronal and sagittal reformats were then acquired through the thorax. For radiation dose reduction, the following was used: automated exposure control, adjustment of mA and/or kV according to patient size. COMPARISON: None. FINDINGS: Image quality: Excellent. Pulmonary arteries: Pulmonary arteries are normal in size, and demonstrate no intraluminal filling defects to suggest central pulmonary embolism. Lungs and pleura: There are geographic ground-glass radiopacities throughout both lungs. There is moderate diffuse interlobular septal thickening. Lung volumes are low. There is a trace low-density right pleural effusion. Mediastinum: Heart size is normal, without pericardial effusion. No mediastinal or hilar adenopathy. Thoracic aorta is normal in caliber and enhancement. Scattered atheromatous calcifications are present within the aortic arch. Esophagus is normal in caliber, without hiatal hernia. Bones and chest wall: No suspicious bony lesions. Ribs and thoracic spine appear intact throughout. The right thyroid lobe is unremarkable. The left thyroid lobe is not visualized and may be surgically absent. No axillary or supraclavicular adenopathy. Abdomen: Large, calcified gallstones are partially visualized within the gallbladder fundus. Visualized upper abdominal solid organs appear normal in the early arterial phase of enhancement. IMPRESSION: 1. No acute pulmonary embolus. 2. Geographic ground-glass radiopacities and interlobular septal thickening suggesting pulmonary edema. Early ARDS could also be considered in the differential diagnosis. 3. Trace low-density right pleural effusion. Dictated by: Arleen Castellanos M.D. on 01/07/2022 at 8:40 Approved by: Arleen Castellanos M.D. on 01/07/2022 at 8:43
[2022-01-07] MEDS: ALBUTEROL 2.5 MG/3 ML NEB (ADULT) INH ×3 (07:41→19:19)
[2022-01-07 07:43] LABS: Add Manual Diff / Slide Review NO; Basophils Absolute Auto 100 /uL (0-100); Basophils Percent Auto 0.6 % (0-2); Eosinophils Absolute Auto 300 /uL (0-450); Hematocrit 37.6 % (36-46); Hemoglobin 12.4 g/dL (12.0-16.0); Lymphocytes Absolute Auto 1500 /uL (1100-4500); Lymphocytes Percent Auto 14.4 % (25-40); Mean Corpuscular HGB Conc 32.9 % (30-36); Mean Corpuscular Hemoglobin 28.7 PG (26-34); Mean Corpuscular Volume 87.5 fL (80-100); Monocytes Absolute Auto 1100 /uL (0-900); Monocytes Percent Auto 10.6 % (3-14); Neutrophils Absolute Auto 7500 /uL (1500-7000); Neutrophils Percent Auto 71.4 % (50-75); Platelet Count 307 X10^3/uL (150-400); Red Cell Distribution Width 13.4 % (11.6-14.8); White Blood Cell Count 10.5 X10^3/uL (4.5-11.0)
[2022-01-07 07:52] LABS: Alanine Aminotransferase 44 IU/L (<35); Albumin 3.8 g/dL (3.5-5.0); Albumin Globulin Ratio 1.1 (1.0-2.8); Alkaline Phosphatase 43 U/L (38-126); Aspartate Aminotransferase 33 IU/L (14-36); BUN Creatinine Ratio 29.2 (6-22); Bilirubin Total 1.2 mg/dL (0.2-1.3); Blood Urea Nitrogen 19 mg/dL (7-17); Carbon Dioxide 28 mmol/L (22-32); Chloride 95 mmol/L (98-107); Creatine Kinase 33 U/L (30-135); Estimated Glomerular Filt Rate > 60 mL/min (>60); Globulin 3.4 g/dL (1.7-4.1); Glucose 129 mg/dL (80-110); HEMOLYSIS < 15 (0-50); Lactate (Lactic Acid) 1.4 mmol/L (0.7-2.1); Lipase 54 U/L (23-300); Potassium 3.9 mmol/L (3.4-5.1); Sodium 131 mmol/L (137-145); Total Protein 7.2 g/dL (6.3-8.2)
[2022-01-07 08:04] LABS: NT-proBNP (BNP-Adult 18+) 420 pg/mL (<450); Troponin I < 0.012 ng/mL (0.01-0.034)
[2022-01-07 08:09] LABS: Procalcitonin 0.14 ng/mL (<0.5)
[2022-01-07] MEDS: ASPIRIN 81 MG CHEW TAB 324 MG PO (08:24)
[2022-01-07] MEDS: SODIUM CHLORIDE 0.9% 1,000 ML 150 ML IV (08:25)
[2022-01-07 08:27] LABS: COVID19 -Nasal RAPID Negative (Negative)
--- NOTE | 2022-01-07 10:37 | PC.NURSE ---
Patient arrives at 75% oxygen saturation on room air. Placed on 2L nasal cannula where she improved to 90-93%. Patient was trialed on room air again at rest and dropped to 85-86%. Placed back on 1.5L where she has been 93%.
--- NOTE | 2022-01-07 12:30 | PM.HP.1 ---
History of Present Illness History of Present Illness Chief complaint: Trouble breathing x1 wk Narrative: Fany Blevins is a 81-year-old woman who came to the ER today because of breathlessness and chest pain.? Over the past couple of weeks she has been treated for a urinary tract infection and completed her antibiotics about 4 or 5 days ago.? Over the past week she is had a cough that has been productive but not bloody.? She is had shortness of breath with exertion all week and some mid chest pain associated with the exertion as well.? She does not use home oxygen.? She has not had a documented fever but does report chills.? No nausea, vomiting or diarrhea.? No abdominal pain.? 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 Patient History Medical History Arthritis Endometrial cancer High blood pressure Malignant neoplasm of endometrium (10/30/15) Mixed incontinence Morbid obesity with body mass index (BMI) of 40.0 to 49.9 (~10/30/15) Neuropathy Obesity (10/30/15) Obstructive sleep apnea syndrome (10/30/15) Postmenopausal atrophic vaginitis Shortness of breath on exertion Surgical History History of hip replacement History of hip replacement History of tonsillectomy Hx of cataract surgery Status post delivery Status post delivery Status post surgery (05/26/14) Status post surgery (09/24/15) Family & Social History Family History Daughter Cancer Father Cerebrovascular accident (stroke) Hypertension Social History: household members spouse Prior Living Arrangements House Safety & Behavioral: Feels Safe in Current Yes Environment Been Physically Hurt or No Threatened By a Person Tobacco & Substance use: Smoking Status Never smoker alcohol intake current alcohol intake frequency holiday/special occasion Substance Use Type does not use Meds Home Medications and Allergies Home Medications Medication Instructions Recorded Confirmed Type multivitamin 2 tab PO DAILY ##0 09/23/12 01/07/22 History metronidazole 0.75 % topical cream 1 applic topical DIRECTED PRN 06/23/19 01/07/22 History Rash albuterol 90 mcg/actuation aerosol 90 mcg inhalation Q6H PRN 08/28/20 01/07/22 History inhaler Shortness Of Breath biotin 800 mcg tablet 800 mcg PO DAILY 08/31/20 01/07/22 History cholecalciferol (vitamin D3) 25 50 mcg PO DAILY 08/31/20 01/07/22 History mcg (1,000 unit) capsule (Vitamin D3) acetaminophen 500 mg capsule 1,000 mg PO Q6H PRN Pain 07/29/21 01/07/22 History estradiol 0.01% (0.1 mg/gram) See Rx Instructions .Route 11/25/21 01/07/22 Rx vaginal cream .COMPLEX #42.5 grams atorvastatin 20 mg tablet 20 mg PO DAILY 12/12/21 01/07/22 History hydrochlorothiazide 12.5 mg tablet 12.5 mg PO DAILY 12/17/21 01/07/22 History valsartan 160 mg tablet 160 mg PO DAILY 12/17/21 01/07/22 History Calm-Mag 1 dose PO BEDTIME 01/07/22 01/07/22 History acidophilus 100 million 1 cap PO BID 01/07/22 01/07/22 History cell-pectin, citrus 10 mg capsule Allergies Allergy/AdvReac Type Severity Reaction Status Date / Time oxycodone Allergy Verified 01/01/22 10:40 codeine AdvReac Mild NAUSEA Verified 01/01/22 10:40 adhesive tape AdvReac Unknown removes my Verified 01/01/22 10:40 skin Review of Systems Review of Systems Narrative: Fourteen system review was completed and pertinent findings are in the history of chief complaint. Exam Vital Signs (past 8 hours): - 01/07/22 07:08 01/07/22 07:11 01/07/22 07:13 Temperature 98.0 F Pulse Rate 113 H 101 H Respiratory Rate 34 H Blood Pressure 155/96 H 155/96 H Pulse Oximetry 75 L 93 Oxygen Delivery Method Room Air Oxygen Flow Rate 01/07/22 07:13 01/07/22 07:30 01/07/22 07:30 Temperature Pulse Rate 97 H 84 Respiratory Rate 25 H Blood Pressure 173/84 H Pulse Oximetry 94 94 Oxygen Delivery Method Oxygen Flow Rate 01/07/22 08:00 01/07/22 08:00 01/07/22 08:17 Temperature Pulse Rate 86 Respiratory Rate 26 H Blood Pressure 185/87 H 203/98 H Pulse Oximetry 92 Oxygen Delivery Method Nasal Cannula Oxygen Flow Rate 4 01/07/22 08:17 01/07/22 08:30 01/07/22 08:30 Temperature Pulse Rate 93 H 85 Respiratory Rate 36 H 29 H Blood Pressure 201/99 H Pulse Oximetry 94 93 Oxygen Delivery Method Nasal Cannula Oxygen Flow Rate 4 01/07/22 09:00 01/07/22 09:00 01/07/22 09:30 Temperature Pulse Rate 69 Respiratory Rate 22 Blood Pressure 189/77 H 173/80 H Pulse Oximetry 93 Oxygen Delivery Method Oxygen Flow Rate 4 01/07/22 09:30 01/07/22 10:00 01/07/22 10:00 Temperature Pulse Rate 72 69 Respiratory Rate 26 H 23 Blood Pressure 189/83 H Pulse Oximetry 84 L 94 Oxygen Delivery Method Room Air Oxygen Flow Rate 01/07/22 10:30 01/07/22 10:30 01/07/22 11:00 Temperature Pulse Rate 68 Respiratory Rate 23 Blood Pressure 200/86 H 188/86 H Pulse Oximetry 92 Oxygen Delivery Method Nasal Cannula Oxygen Flow Rate 1.5 01/07/22 11:00 01/07/22 11:48 01/07/22 11:52 Temperature 97.6 F Pulse Rate 68 82 Respiratory Rate 25 H 22 Blood Pressure 175/69 H Pulse Oximetry 94 95 Oxygen Delivery Method Nasal Cannula Oxygen Flow Rate 2 Oxygen Delivery Method Nasal Cannula Oxygen Flow Rate 2 Narrative Exam Narrative: GENERAL:? Alert, cooperative and in no apparent distress on oxygen supplementation by nasal prongs. HEAD: Atraumatic. Normocephalic. EYES:? Sclera are clear without icterus.? Extraocular movements are full. ENT:? No rhinorrhea.? Oropharynx is moist.? Mouth exam is benign. NECK:? Supple.? Full range of motion. Neck nodes are nontender and nonpalpable CARDIOVASCULAR:? Normal rate and rhythm without murmur gallop or rub. Heart sounds are normal. RESPIRATORY:? Decreased air movement throughout the lung gil. There is general increased resistance in the patient unable to take deep breaths. Prefers to have pursed lips when she exhales. GASTROINTESTINAL: Abdomen soft, non-tender, nondistended. General abdominal obesity EXTREMITIES:? Symmetrical 1+ edema below the knees, full range of motion.? No obvious trauma. BACK:? Normal inspection, no CVA tenderness. NEURO:? Nonfocal examination, normal speech, normal gait. SKIN: No rash or erythema of visible areas PSYCH:? Normally oriented.? Normal range of affect.? Appropriate behavior. No acute depression or mood changes. Objective Labs Result Diagrams: 01/07/22 07:15 01/07/22 07:15 Labs: Laboratory Results - last 24 hr 01/07/22 01/07/22 01/07/22 07:15 07:15 07:15 WBC 10.5 RBC 4.30 Hgb 12.4 Hct 37.6 MCV 87.5 MCH 28.7 MCHC 32.9 RDW 13.4 Plt Count 307 Neut % (Auto) 71.4 Lymph % (Auto) 14.4 L [place] % (Auto) 10.6 Eos % (Auto) 3.0 Baso % (Auto) 0.6 Neut # (Auto) 7500 H Lymph # (Auto) 1500 [place] # (Auto) 1100 H Eos # (Auto) 300 Baso # (Auto) 100 Sodium 131 L Potassium 3.9 Chloride 95 L Carbon Dioxide 28 BUN 19 H Creatinine 0.65 Estimated GFR > 60 BUN/Creatinine Ratio 29.2 H Glucose 129 H Lactate Calcium 9.0 Total Bilirubin 1.2 AST 33 ALT 44 H Alkaline Phosphatase 43 Total Creatine Kinase 33 CK-MB (CK-2) TNP CK-MB (CK-2) Rel Index TNP Troponin I < 0.012 NT-Pro-B Natriuret Pep 420 Total Protein 7.2 Albumin 3.8 Globulin 3.4 Albumin/Globulin Ratio 1.1 Lipase 54 Procalcitonin 0.14 SARS-CoV-2 (PCR) 01/07/22 01/07/22 07:15 07:44 WBC RBC Hgb Hct MCV MCH MCHC RDW Plt Count Neut % (Auto) Lymph % (Auto) [place] % (Auto) Eos % (Auto) Baso % (Auto) Neut # (Auto) Lymph # (Auto) [place] # (Auto) Eos # (Auto) Baso # (Auto) Sodium Potassium Chloride Carbon Dioxide BUN Creatinine Estimated GFR BUN/Creatinine Ratio Glucose Lactate 1.4 Calcium Total Bilirubin AST ALT Alkaline Phosphatase Total Creatine Kinase CK-MB (CK-2) CK-MB (CK-2) Rel Index Troponin I NT-Pro-B Natriuret Pep Total Protein Albumin Globulin Albumin/Globulin Ratio Lipase Procalcitonin SARS-CoV-2 (PCR) Negative Assessment & Plan Assessment & Plan narrative: 1. History of congestive heart failure with concern for exacerbation. Provide intravenous furosemide to 40 mg IV every 12 hours and follow clinically. Hold hydrochlorothiazide dose. 2. Concern for undiagnosed COPD and possible early patient in exacerbation. Provide prednisone 40 mg p.o. daily. Antibiotic treatment with moxifloxacin 400 mg daily. Continue the albuterol inhaler both as needed and then also have regular doses of 2 puffs q.i.d.. 3. Regularly takes acidophilus. Continue. 4. Vitamin supplementation. Continue patient's biotin and vitamin D3 supplementation as well as multivitamin supplementation. 5. Hyperlipidemia. Atorvastatin 20 mg daily. 6. Senile vaginitis. Continue estradiol 0.01% vaginal cream 7. Hypertension. Maintain patient's regular medication of valsartan but hold hydrochlorothiazide. Level of intervention is CODE: do not resuscitate do not intubate. Substitute decision maker if the patient is unable to make decision is her , Johnnie Farrell. Time spent caring for the patient, obtaining history and doing physical exams as well as interacting with the appropriate healthcare providers in regards to her care, 70 minutes. Based on the severity of the patient's illness and the risk for increased medical problems, the patient is inpatient appropriate. She is expected to have hospitalization longer than 2 midnights. Time Spent With Patient Critical Care time: I spent a total of [] minutes of critical care time on this patient's care today; this time is exclusive of procedural time. Scores Wells' Criteria for PE Citation:: Wells score: 0, DVT prophylaxis not needed. Quality VTE Deep Vein Thrombosis/Pulmonary Embolism Present on Admission: No MIPS - Admit I confirm the patient?s Advance Care Plan is present, Code status is documented, Surrogate decision maker is in patient?s record [If Yes, STOP here]: Yes
--- NOTE | 2022-01-07 13:32 | DI.ECHO.S_ITS ---
[facility] +---------+ : : [address] [place] [address] : : : : [id number] : : : : Phone: [phone]+ Echocardiogram Report + + :Name: MARY HAYES Study Date: 01/07/2022 Height: 60 in : :[facility] ReadingLocation: Weight: 222 lb : : Gender: Female BSA: 2.0 m2 : :: 1940 Age: 81 yrs BP: 188/86 mmHg: :Reason For Study: CONGESTIVE HEART FAILURE : :Ordering Physician: ROMIE, : :KAYLA Performed By: Nanette Jose : :Referring: HERB GRUBBS : + + Interpretation Summary 1) Normal left ventricular size, thickness, wall motion, and systolic function (EF 65-70%). 2) Mildly enlarged right ventricle with normal function. 3) Diastolic parameters suggest a pseudonormalization pattern, consistent with probable elevated filling pressures. 4) No significant valvular abnormalities. 5) The right ventricular systolic pressure is estimated to be at least 59 mmHg based on an estimated right atrial pressure of 15 mm Hg. 6) Hypertension is present during the study (BP 188//86mmHg). 7) Compared to the Echo done 11/12/2015, systolic pulmonary artery pressure has increased from 43mmHg to 59mmHg on this study. Procedure: A two-dimensional transthoracic echocardiogram with color flow and Doppler was performed. The study quality was technically difficult. A contrast injection of Definity was performed to improve assessment of LV function. Comparison is made with the echocardiogram of 11/12/2015. The patient was in sinus rhythm with heart rates between 69-82 bpm during the exam. Left Ventricle: The left ventricle is normal in size and wall thickness. The ejection fraction is estimated to be 65-70%. Left ventricular systolic function appears normal without focal wall motion abnormalities. Diastolic parameters suggest a pseudonormalization pattern, consistent with probable elevated filling pressures. Right Ventricle: The right ventricle is mildly dilated. The right ventricular systolic function is normal. Atria: The left atrium is moderately dilated. Right atrial size is normal. There is no Doppler evidence for an interatrial shunt. Mitral Valve: The mitral valve is normal in structure and function. There is trace mitral regurgitation. Aortic Valve: The aortic valve is trileaflet. The aortic valve opens well. There is no aortic valve stenosis. No aortic regurgitation is present. Tricuspid Valve: The tricuspid valve is not well visualized. The right ventricular systolic pressure is estimated to be at least 59 mmHg based on an estimated right atrial pressure of 15 mm Hg. There is trace tricuspid regurgitation. Pulmonic Valve: The pulmonic valve is not well visualized. There is mild pulmonic regurgitation. Great Vessels: The aortic root is normal size. The dimensions of the ascending aorta are normal. The IVC is dilated (diameter is greater than 2.1 cm) and it collapses less than 50% with a sniff. This suggests a high right atrial pressure of 15 mm Hg. Pericardium/ Pleura There is no pericardial effusion. There is no pleural effusion. MMode/2D Measurements & Calculations LVIDd: 5.2 cm LVOT diam: 2.1 cm LVIDs: 3.3 cm Ao root diam: 2.8 cm FS: 37.7 % asc Aorta Diam: 3.2 cm IVSd: 0.89 cm Ao Arch Diam (Prox Trans): 3.2 cm LVPWd: 1.0 cm LV singh. diameter/BSA (cm/m^2): 2.7 LV sys. diameter/BSA (cm/m^2): 1.7 LA A2 area: 22.0 cm2 RA long axis: 5.2 cm LA A4 area: 22.6 cm2 RA area: 18.3 cm2 LA length (vol): 5.9 cm RA vol: 54.4 ml LA vol: 71.4 ml RA : 27.9 ml/m2 LA vol index: 36.6 ml/m2 IVC diam: 2.4 cm RVD1 (basal): 4.2 cm TAPSE: 2.3 cm Doppler Measurements & Calculations Ao V2 max: 181.6 cm/sec LVOT Max Jairon: 119.0 cm/sec Ao V2 mean: 121.6 cm/sec LV V1 max P.7 mmHg Ao max P.2 mmHg LV V1 VTI: 26.2 cm Ao mean P.8 mmHg CHRIS(I,D): 2.4 cm2 Ao V2 VTI: 38.8 cm CHRIS(V,D): 2.3 cm2 sev ratio: 0.68 CHRIS indexed to BSA (cm^2/m^2): 1.2 MV E max jairon: 126.8 cm/sec TR max jairon: 332.0 cm/sec MV A max jairon: 142.3 cm/sec TR max P.1 mmHg MV E/A: 0.89 PA V2 max: 134.3 cm/sec Med Peak E' Jairon: 7.8 cm/sec PA V2 mean: 100.1 cm/sec E/E' med: 16.3 PA mean P.3 mmHg Lat Peak E' Jairon: 6.5 cm/sec PA pr(Accel): 48.2 mmHg E/E' lat: 19.6 E/e' average: 17.9 MV dec time: 0.19 sec SV(LVOT): 93.6 ml Reading Physician:05:43 PM
[2022-01-07] MEDS: CHOLECALCIFEROL (VITAMIN D3) 1,000 UNIT TABLET 2000 UNIT PO (14:04)
[2022-01-07] MEDS: ATORVASTATIN 20 MG TABLET PO (14:04)
[2022-01-07] MEDS: predniSONE 20 MG TABLET 40 MG PO (14:04)
[2022-01-07] MEDS: FUROSEMIDE 40 MG/4 ML VIAL IV ×2 (14:05→21:07)
[2022-01-07] MEDS: levoFLOXacin 250 MG TABLET PO (17:29)
[2022-01-07] MEDS: LACTOBACILLUS ACIDOPHILUS TABLET 1 EACH PO (21:07)
[2022-01-07] MEDS: ACETAMINOPHEN 325 MG TABLET 975 MG PO (21:09)
[2022-01-07 21:42] LABS: Appearance Urine UA CLEAR; Bilirubin Urine UA NEGATIVE (NEGATIVE); Color Urine UA YELLOW; Glucose Urine UA NEGATIVE (Negative); Ketones Urine UA NEGATIVE (NEGATIVE); Leukocyte Esterase Urine UA NEGATIVE (NEGATIVE); Nitrite Urine UA NEGATIVE (Negative); Occult Blood Urine UA NEGATIVE (Negative); Protein Urine UA NEGATIVE (Negative); Urobilinogen Urine UA 0.2 E.U./dL (0.2)
[2022-01-07 21:43] LABS: Bacteria Urine None Seen; Culture Indicated Urine Cult Not Indicated; RBC Urine None Seen (0-5/HPF); Urine Comments Microscopic Normal; WBC Urine None Seen (0-5/HPF)
[2022-01-08] VITALS (8 sets, daily range): BP systolic 117–175; BP diastolic 39–80; PULSE 69–94; RESP 18–21; TEMP 36.5–37.1; O2SAT 90–93
[2022-01-08 05:30] LABS: Add Manual Diff / Slide Review NO; Basophils Absolute Auto 0 /uL (0-100); Basophils Percent Auto 0.3 % (0-2); Eosinophils Absolute Auto 0 /uL (0-450); Eosinophils Percent Auto 0.1 % (2-4); Hematocrit 33.4 % (36-46); Hemoglobin 11.2 g/dL (12.0-16.0); Lymphocytes Absolute Auto 1100 /uL (1100-4500); Lymphocytes Percent Auto 11.1 % (25-40); Mean Corpuscular HGB Conc 33.4 % (30-36); Mean Corpuscular Hemoglobin 28.9 PG (26-34); Mean Corpuscular Volume 86.5 fL (80-100); Monocytes Absolute Auto 700 /uL (0-900); Monocytes Percent Auto 7.3 % (3-14); Neutrophils Absolute Auto 7700 /uL (1500-7000); Neutrophils Percent Auto 81.2 % (50-75); Platelet Count 329 X10^3/uL (150-400); Red Blood Cell Count 3.87 X10^6/uL (4.0-5.2); Red Cell Distribution Width 13.2 % (11.6-14.8); White Blood Cell Count 9.5 X10^3/uL (4.5-11.0)
[2022-01-08 05:48] LABS: Alanine Aminotransferase 48 IU/L (<35); Albumin 3.4 g/dL (3.5-5.0); Albumin Globulin Ratio 1.1 (1.0-2.8); Alkaline Phosphatase 39 U/L (38-126); Aspartate Aminotransferase 32 IU/L (14-36); BUN Creatinine Ratio 37.1 (6-22); Bilirubin Total 0.6 mg/dL (0.2-1.3); Blood Urea Nitrogen 26 mg/dL (7-17); Calcium 8.6 mg/dL (8.4-10.2); Carbon Dioxide 34 mmol/L (22-32); Chloride 93 mmol/L (98-107); Estimated Glomerular Filt Rate > 60 mL/min (>60); Globulin 3.1 g/dL (1.7-4.1); Glucose 147 mg/dL (80-110); HEMOLYSIS < 15 (0-50); Potassium 4.4 mmol/L (3.4-5.1); Sodium 131 mmol/L (137-145); Total Protein 6.5 g/dL (6.3-8.2)
[2022-01-08 05:50] LABS: NT-proBNP (BNP-Adult 18+) 533 pg/mL (<450)
[2022-01-08 06:04] LABS: C-Reactive Protein Quant 13.5 mg/dL (<1.0)
--- NOTE | 2022-01-08 06:07 | PC.NURSE ---
End of Shift report. Care of patient from . Patient AAOX4, denies pain. Wearing NC 2L and Home CPAP during the night, O2 Sats 92%. Up to BSC, Lasix given, had >1000 ml out during the night. Has been SR 69.
[2022-01-08] MEDS: MULTIVITAMIN 1 TABLET 2 TAB PO (08:36)
[2022-01-08] MEDS: LACTOBACILLUS ACIDOPHILUS TABLET 1 EACH PO ×2 (08:36→20:50)
[2022-01-08] MEDS: ATORVASTATIN 20 MG TABLET PO (08:36)
[2022-01-08] MEDS: predniSONE 20 MG TABLET 40 MG PO (08:36)
[2022-01-08] MEDS: CHOLECALCIFEROL (VITAMIN D3) 1,000 UNIT TABLET 2000 UNIT PO (08:36)
[2022-01-08] MEDS: hydroCHLOROthiazide 25 MG TABLET 12.5 MG PO (08:36)
[2022-01-08] MEDS: FUROSEMIDE 40 MG/4 ML VIAL IV ×2 (08:37→20:50)
[2022-01-08] MEDS: VALSARTAN 80 MG TABLET 160 MG PO (08:37)
--- NOTE | 2022-01-08 08:46 | P.PN_ITS ---
Subjective Subjective Date Patient Seen: 01/08/22 Time Patient Seen: 11:00 Interval history: Patient feeling better today. Says the albuterol inhaler and diuresis have made the largest difference in terms of her breathing. Exam Vital Signs (past 8 hours): - 01/08/22 04:00 Temperature 97.8 F Pulse Rate 78 Respiratory Rate 18 Blood Pressure 168/75 H Pulse Oximetry 91 Oxygen Flow Rate 0 Oxygen Delivery Method Nasal Cannula Oxygen Flow Rate 0 Narrative Exam Narrative: GENERAL:? Alert, cooperative and in no apparent distress on oxygen supplementation by nasal prongs. HEAD: Atraumatic. Normocephalic. EYES:? Sclera are clear without icterus.? Extraocular movements are full. ENT:? No rhinorrhea.? Oropharynx is moist.? Mouth exam is benign. NECK:? Supple.? Full range of motion. Neck nodes are nontender and nonpalpable CARDIOVASCULAR:? Normal rate and rhythm without murmur gallop or rub. Heart sounds are normal. RESPIRATORY:? Decreased air movement throughout the lung gil. There is general increased resistance in the patient unable to take deep breaths. Prefers to have pursed lips when she exhales. GASTROINTESTINAL: Abdomen soft, non-tender, nondistended. General abdominal obesity EXTREMITIES:? Symmetrical 1+ edema below the knees, full range of motion.? No obvious trauma. BACK:? Normal inspection, no CVA tenderness. NEURO:? Nonfocal examination, normal speech, normal gait. SKIN: No rash or erythema of visible areas PSYCH:? Normally oriented.? Normal range of affect.? Appropriate behavior. No acute depression or mood changes. Objective Labs Result Diagrams: 01/08/22 04:46 01/08/22 04:46 Labs: Laboratory Results - last 24 hr 01/07/22 01/08/22 01/08/22 21:33 04:46 04:46 WBC 9.5 RBC 3.87 L Hgb 11.2 L Hct 33.4 L MCV 86.5 MCH 28.9 MCHC 33.4 RDW 13.2 Plt Count 329 Neut % (Auto) 81.2 H Lymph % (Auto) 11.1 L [place] % (Auto) 7.3 Eos % (Auto) 0.1 L Baso % (Auto) 0.3 Neut # (Auto) 7700 H Lymph # (Auto) 1100 [place] # (Auto) 700 Eos # (Auto) 0 Baso # (Auto) 0 Sodium Potassium Chloride Carbon Dioxide BUN Creatinine Estimated GFR BUN/Creatinine Ratio Glucose Calcium Total Bilirubin AST ALT Alkaline Phosphatase C-Reactive Protein NT-Pro-B Natriuret Pep 533 H Total Protein Albumin Globulin Albumin/Globulin Ratio Urine Color Yellow Urine Appearance Clear Urine pH 6.0 Ur Specific [place] 1.010 Urine Protein Negative Urine Glucose (UA) Negative Urine Ketones Negative Urine Occult Blood Negative Urine Nitrate Negative Urine Bilirubin Negative Urine Urobilinogen 0.2 Ur Leukocyte Esterase Negative Urine RBC None seen Urine WBC None seen Urine Bacteria None seen Ur Culture Indicated? Cult not indicated Micro UA Comment Microscopic normal 01/08/22 04:46 WBC RBC Hgb Hct MCV MCH MCHC RDW Plt Count Neut % (Auto) Lymph % (Auto) [place] % (Auto) Eos % (Auto) Baso % (Auto) Neut # (Auto) Lymph # (Auto) [place] # (Auto) Eos # (Auto) Baso # (Auto) Sodium 131 L Potassium 4.4 Chloride 93 L Carbon Dioxide 34 H BUN 26 H Creatinine 0.70 Estimated GFR > 60 BUN/Creatinine Ratio 37.1 H Glucose 147 H Calcium 8.6 Total Bilirubin 0.6 AST 32 ALT 48 H Alkaline Phosphatase 39 C-Reactive Protein 13.5 H NT-Pro-B Natriuret Pep Total Protein 6.5 Albumin 3.4 L Globulin 3.1 Albumin/Globulin Ratio 1.1 Urine Color Urine Appearance Urine pH Ur Specific [place] Urine Protein Urine Glucose (UA) Urine Ketones Urine Occult Blood Urine Nitrate Urine Bilirubin Urine Urobilinogen Ur Leukocyte Esterase Urine RBC Urine WBC Urine Bacteria Ur Culture Indicated? Micro UA Comment [facility] Medical History Arthritis Endometrial cancer High blood pressure Malignant neoplasm of endometrium (10/30/15) Mixed incontinence Morbid obesity with body mass index (BMI) of 40.0 to 49.9 (~10/30/15) Neuropathy Obesity (10/30/15) Obstructive sleep apnea syndrome (10/30/15) Postmenopausal atrophic vaginitis Shortness of breath on exertion Surgical History History of hip replacement History of hip replacement History of tonsillectomy Hx of cataract surgery Status post delivery Status post delivery Status post surgery (05/26/14) Status post surgery (09/24/15) Family History Daughter Cancer Father Cerebrovascular accident (stroke) Hypertension Social History marital status: number of children: 2 household members: spouse Smoking Status: Never smoker alcohol intake: current Assessment & Plan Assessment & Plan narrative: # Acute HFpEF exacerbation and pulm HTN -Possibly triggered by recent URI at home -Echo with EF 65-70% and diastolic dysfunction, elevated RVSP of 59 -Possibly due to underlying OHS or LORY -Continue diuresis with lasix 40mg IV BID until contraction alkalosis -Maximize BP control, stopped HCTZ due to hypoNa and increase valsartan dosage -Should have outpatient sleep study # Possible asthma vs COPD -patient notes vast improvement with albuterol inhaler -however has history of PFT's which did not show asthma -continue albuterol inhaler and prednisone to finish 5 days -stop levaquin as procal negative and do not suspect CAP # HTN -per cardiology records patient should add aldactone if she remains hyperten sive, BP during admission up to 203/98 -stop HCTZ as above due to hyponatremia -continue valsartan 160mg daily and will increase if needed # Hyperlipidemia. Cotninue home atorvastatin 20 mg daily. # Hyponatremia. Acute on chronic. Stop HCTZ. Code status: DNR/DNI Substitute decision maker if the patient is unable to make decision is her , Johnnie Farrell. Dispo: Likely dc to home 01/09. Time Spent With Patient Critical Care time: I spent a total of [] minutes of critical care time on this patient's care today; this time is exclusive of procedural time. Quality VTE Deep Vein Thrombosis/Pulmonary Embolism Present on Admission: No
[2022-01-08] MEDS: ALBUTEROL 2.5 MG/3 ML NEB (ADULT) INH ×3 (09:10→19:43)
[2022-01-08 09:27] LABS: Magnesium 1.7 mg/dL (1.6-2.3)
[2022-01-08] MEDS: AMLODIPINE 5 MG TABLET 10 MG PO (10:01)
[2022-01-08] MEDS: HEPARIN 5,000 UNIT/ML VIAL 5000 UNIT SUBCUT ×2 (12:41→20:50)
[2022-01-08] MEDS: MAGNESIUM CHLORIDE 64 MG TABLET 128 MG PO (12:41)
--- NOTE | 2022-01-08 14:19 | CM.DANOTE ---
Patient is an 81 yo female who was admitted on 01/07/22 for SOB. Pt has [facility] for insurance and her PCP is Dr. Herb Graves. EMR was reviewed. Per , pt with recent UTI and hx of CHF and has home CPAP and admitted for CHF and poss COPD. Pt currently on 2LO2. SW met bedside with pt and spouse and explained role and they confirm they live in [place] and have local supportive adult son Dejuan and spouse and son are pt's DPOAs. Pt states she is mostly independent at baseline and uses a walker and still drives although spouse mostly provides transport. Pt confirms she has had HH before after getting an infection and needing a wound vac but hasn't had HH for a couple years. Pt denies hx of SNF. Pt does not use oxygen at baseline and is hopeful to d/c home tomorrow 01/09/22 if medically stable and both pt and spouse do not anticipate any needs at d/c and spouse plans to provide transport home. Plan: SW to follow for plan of d/c to home via spouse POV tomorrow if medically stable and may need RT to assess for new home oxygen if pt cannot be weaned to room air. KATIE Mosquera Discharge Planning/Care Management Advanced directive, confirm from FAMILY Start: 01/07/22 11:52 Freq: Q24H Status: Active Protocol: Document 01/08/22 11:52 RUIZ (Rec: 01/08/22 12:18 RUIZ [id number]) Advance Directive, confirm on record Time 12:18 Person contacted pt Copy received No CM Discharge Assessment Start: 01/08/22 14:17 Freq: Status: Active Protocol: Document 01/08/22 14:17 BF (Rec: 01/08/22 14:18 BF [id number]) Discharge Planning Assessment Assigned Dag Sprayer KATIE [place] DPOA/Assigned Designee Name margy Blair and son Dejuan Contact Information [phone] Advance Directives? Yes Advance Directives on File No History Provided By Patient,Significant Other, Medical Record Has Patient been admitted in last 30 No days? Prior Living Arrangements House Household Members spouse Type of transporation used prior to Drives own vehicle admit Comment spouse mostly drives but pt still does at times Independent with ADL's Yes Is patient alert and oriented? Yes Needs Assistance With Home Chores / Shopping Caregiver for Another No Community Services used prior to Physical Therapy admission: DME Already Rented / Owned FWW / Walker Patient/Family Preference OP PT Therapy Barriers to Discharge No Discharge Plan Home Community Services Physical Therapy Transportation Arrangement Spouse plans to provide transport at d/c Referrals Initiated None needed Whiteboard Updated in Patient Room with Yes name and ext. # of Dag Sprayer Review Status In Process Please Provide Date Initial DC 01/08/22 Assessment Was Performed Next Review Type Continued Stay Review
--- NOTE | 2022-01-08 16:03 | PC.NURSE ---
Day Shift Note/O2 Pt on 2L NC with SpO2 92-93%. On RA pt holds at 89-92%, able to maintain sats only with deep breathing. Walked around nurse's station with FWW, SBA, while on 2L NC. SpO2 fluctuated from 89-94% while walking and talking. Pt short of breath upon arrival back to room but recovered quickly with rest. Assisted back to bed. Denies any other needs at this time. Call light within reach.
[2022-01-09] VITALS (8 sets, daily range): BP systolic 130–158; BP diastolic 41–62; PULSE 70–82; RESP 18–19; TEMP 36.3–36.6; O2SAT 92–96
[2022-01-09] MEDS: ALBUTEROL 2.5 MG/3 ML NEB (ADULT) INH (00:53)
[2022-01-09 05:18] LABS: BUN Creatinine Ratio 45.6 (6-22); Blood Urea Nitrogen 36 mg/dL (7-17); Carbon Dioxide 34 mmol/L (22-32); Chloride 91 mmol/L (98-107); Estimated Glomerular Filt Rate > 60 mL/min (>60); Glucose 179 mg/dL (80-110); HEMOLYSIS < 15 (0-50); Potassium 3.9 mmol/L (3.4-5.1); Sodium 132 mmol/L (137-145)
--- NOTE | 2022-01-09 06:16 | PC.NURSE ---
End of shift note. Care of patient from 9020-1412. Patient AAOX4, denies pain. On continuous pulse oximetry. O2 Sats 94% on 2L NC. Patient wore her home CPAP for a few hours during the night, O2 Sats dropped 87%. RT set up O2 2L to flow through home CPAP, however, patient's O2 Saturation continued to drop when she slept. Patient's home CPAP consist of only a nasal mask. Once patient placed back on 2L NC O2 Sats increased to 94-96%. Patient uses call light appropriately to request assist to BSC, diuressing with Lasix. Has been SR 80s with BBB.
--- NOTE | 2022-01-09 07:47 | P.PN_ITS ---
Exam Vital Signs (past 8 hours): - 01/09/22 00:00 01/09/22 01:02 01/09/22 04:00 Temperature 97.7 F 97.3 F L Pulse Rate 77 82 76 Respiratory Rate 18 18 19 Blood Pressure 139/58 L 144/62 H Pulse Oximetry 94 92 96 Oxygen Delivery Method Nasal Cannula Oxygen Flow Rate 2 2 Oxygen Delivery Method Nasal Cannula Oxygen Flow Rate 2 Narrative Exam Narrative: GENERAL:? Alert, cooperative and in no apparent distress on oxygen supple mentation by nasal prongs. HEAD: Atraumatic. Normocephalic. EYES:? Sclera are clear without icterus.? Extraocular movements are full. ENT:? No rhinorrhea.? Oropharynx is moist.? Mouth exam is benign. NECK:? Supple.? Full range of motion. Neck nodes are nontender and nonpalpable CARDIOVASCULAR:? Normal rate and rhythm without murmur gallop or rub. Heart sounds are normal. RESPIRATORY:? Decreased air movement throughout the lung gil. There is general increased resistance in the patient unable to take deep breaths. Prefers to have pursed lips when she exhales. GASTROINTESTINAL: Abdomen soft, non-tender, nondistended. General abdominal obesity EXTREMITIES:? Symmetrical 1+ edema below the knees, full range of motion.? No obvious trauma. BACK:? Normal inspection, no CVA tenderness. NEURO:? Nonfocal examination, normal speech, normal gait. SKIN: No rash or erythema of visible areas PSYCH:? Normally oriented.? Normal range of affect.? Appropriate behavior. No acute depression or mood changes. Objective Labs Result Diagrams: 01/08/22 04:46 01/09/22 04:47 Labs: Laboratory Results - last 24 hr 01/08/22 01/09/22 04:46 04:47 Sodium 132 L Potassium 3.9 Chloride 91 L Carbon Dioxide 34 H BUN 36 H Creatinine 0.79 Estimated GFR > 60 BUN/Creatinine Ratio 45.6 H Glucose 179 H Calcium 9.0 Magnesium 1.7 PFSH Medical History Arthritis Endometrial cancer High blood pressure Malignant neoplasm of endometrium (10/30/15) Mixed incontinence Morbid obesity with body mass index (BMI) of 40.0 to 49.9 (~10/30/15) Neuropathy Obesity (10/30/15) Obstructive sleep apnea syndrome (10/30/15) Postmenopausal atrophic vaginitis Shortness of breath on exertion Surgical History History of hip replacement History of hip replacement History of tonsillectomy Hx of cataract surgery Status post delivery Status post delivery Status post surgery (05/26/14) Status post surgery (09/24/15) Family History Daughter Cancer Father Cerebrovascular accident (stroke) Hypertension Social History marital status: number of children: 2 household members: spouse Smoking Status: Never smoker alcohol intake: current Assessment & Plan Assessment & Plan narrative: # Acute HFpEF exacerbation and pulm HTN -Possibly triggered by recent URI at home -Echo with EF 65-70% and diastolic dysfunction, elevated RVSP of 59 -Possibly due to underlying OHS or LORY -Continue diuresis with lasix 40mg IV BID until contraction alkalosis -Maximize BP control, stopped HCTZ due to hypoNa and increase valsartan dosage -Should have outpatient sleep study # Possible asthma vs COPD -patient notes vast improvement with albuterol inhaler -however has history of PFT's which did not show asthma -continue albuterol inhaler and prednisone to finish 5 days -stop levaquin as procal negative and do not suspect CAP # HTN -per cardiology records patient should add aldactone if she remains hyp ertensive, BP during admission up to 203/98 -stop HCTZ as above due to hyponatremia -continue valsartan 160mg daily and will increase if needed # Hyperlipidemia. Cotninue home atorvastatin 20 mg daily. # Hyponatremia. Acute on chronic. Stop HCTZ. Code status: DNR/DNI Substitute decision maker if the patient is unable to make decision is her , Johnnie Farrell. Dispo: Likely dc to home 01/09. Time Spent With Patient Critical Care time: I spent a total of [] minutes of critical care time on this patient's care toda y; this time is exclusive of procedural time. Quality VTE Deep Vein Thrombosis/Pulmonary Embolism Present on Admission: No
[2022-01-09] MEDS: VALSARTAN 80 MG TABLET 160 MG PO (09:22)
[2022-01-09] MEDS: SPIRONOLACTONE 25 MG TABLET PO (09:23)
[2022-01-09] MEDS: MULTIVITAMIN 1 TABLET 2 TAB PO (09:23)
[2022-01-09] MEDS: LACTOBACILLUS ACIDOPHILUS TABLET 1 EACH PO (09:23)
[2022-01-09] MEDS: predniSONE 20 MG TABLET 40 MG PO (09:23)
[2022-01-09] MEDS: HEPARIN 5,000 UNIT/ML VIAL 5000 UNIT SUBCUT (09:23)
[2022-01-09] MEDS: ATORVASTATIN 20 MG TABLET PO (09:23)
[2022-01-09] MEDS: CHOLECALCIFEROL (VITAMIN D3) 1,000 UNIT TABLET 2000 UNIT PO (09:23)
[2022-01-09] MEDS: FUROSEMIDE 40 MG/4 ML VIAL IV (09:24)
--- NOTE | 2022-01-09 10:25 | PC.NURSE ---
provider okayed to give lasix and aldactone together. provider aware of BP
--- NOTE | 2022-01-09 16:29 | P.DS_ITS ---
History of Present Illness History of Present Illness Date Patient Seen: 01/09/22 Time Patient Seen: 12:00 Chief complaint: Trouble breathing x1 wk Narrative: Fany Blevins is a 81-year-old woman who came to the ER today because of breathlessness and chest pain.? Over the past couple of weeks she has been treated for a urinary tract infection and completed her antibiotics about 4 or 5 days ago.? Over the past week she is had a cough that has been productive but not bloody.? She is had shortness of breath with exertion all week and some mid chest pain associated with the exertion as well.? She does not use home oxygen.? She has not had a documented fever but does report chills.? No nausea, vomiting or diarrhea.? No abdominal pain.? 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 Discharge Providers Provider Date of admission: 01/07/22 09:39 Discharge Date: 01/09/22 Primary care physician: Herb Graves MD Discharge provider: Guille Bazzi DO Summary Hospital Course Discharge Diagnosis: # Acute HFpEF exacerbation and pulm HTN -Possibly triggered by recent URI at home with underyling OHS and LORY -Echo with EF 65-70% and diastolic dysfunction, elevated RVSP of 59 -Diuresed with lasix 40mg IV to euvolemia -Maximize BP control, stopped HCTZ due to hypoNa and started spironolactone -discharged with script for po lasix 40 to take PRN if she develops edema # Acute hypoxic respiratory failure -initally 75% on room air and requiring 2L O2, secondary to HFpEF exacerbation -weaned off oxygen with diuresis -likely component of underlying obesity hypoventilation, spoke with patient about importance of weight loss # Possible asthma vs COPD exacerbation -patient notes vast improvement with albuterol inhaler -however has history of PFT's which did not show asthma -continue albuterol inhaler and prednisone to finish 5 days -stop levaquin as procal negative and do not suspect CAP # HTN -per cardiology records patient should add aldactone if she remains hypertensive, BP during admission up to 203/98 -stop HCTZ as above due to hyponatremia -continue valsartan 160mg daily and will increase if needed # Hyperlipidemia.? Cotninue home atorvastatin 20 mg daily. # Hyponatremia. Acute on chronic. Stop HCTZ. # Morbid obesity -BMI 43 Hospital Course: Admitted for dyspnea and hypoxic resp failure secondary to HFpEF exacerbation. Echo showed EF 65-70% with pulm HTN. Diuresed with IV lasix and added spironolactone for better BP management. Stopped home HCTZ due to hyponatremia. Patient did well and diuresed 6L off and was able to wean off O2. Sent home with aldacatone in addition to her home valsartan and a script for lasix to take as needed for weight gain or edema. She will f/u with Dr. Epperson cardiology for ongoing management. Time Spent with Patient Time spent: Greater than 30 minutes Exam Vital Signs (past 8 hours): - 01/09/22 08:38 01/09/22 09:29 01/09/22 10:16 Temperature Pulse Rate 78 82 Respiratory Rate 18 Blood Pressure 138/41 L Pulse Oximetry 94 Oxygen Delivery Method Nasal Cannula Nasal Cannula Oxygen Flow Rate 2 01/09/22 13:00 01/09/22 15:01 Temperature 97.8 F Pulse Rate 71 Respiratory Rate 19 Blood Pressure 130/59 L Pulse Oximetry 94 93 Oxygen Delivery Method Room Air Oxygen Flow Rate 2 Oxygen Delivery Method Room Air Oxygen Flow Rate 2 Narrative Exam Narrative: GENERAL:? Alert, cooperative and in no apparent distress HEAD: Atraumatic. Normocephalic. EYES:? Sclera are clear without icterus.? Extraocular movements are full. ENT:? No rhinorrhea.? Oropharynx is moist.? Mouth exam is benign. NECK:? Supple.? Full range of motion. Neck nodes are nontender and nonpalpable CARDIOVASCULAR:? Normal rate and rhythm without murmur gallop or rub. Heart sounds are normal. RESPIRATORY:? Decreased air movement throughout the lung gil. There is general increased resistance in the patient unable to take deep breaths. GASTROINTESTINAL: Abdomen soft, non-tender, nondistended. General abdominal obesity EXTREMITIES:? Symmetrical 1+ edema below the knees, full range of motion.? No obvious trauma. BACK:? Normal inspection, no CVA tenderness. NEURO:? Nonfocal examination, normal speech, normal gait. SKIN: No rash or erythema of visible areas PSYCH:? Normally oriented.? Normal range of affect.? Appropriate behavior. No acute depression or mood changes. Objective Labs Result Diagrams: 01/08/22 04:46 01/09/22 04:47 Labs: Laboratory Results - last 24 hr 01/09/22 04:47 Sodium 132 L Potassium 3.9 Chloride 91 L Carbon Dioxide 34 H BUN 36 H Creatinine 0.79 Estimated GFR > 60 BUN/Creatinine Ratio 45.6 H Glucose 179 H Calcium 9.0 [facility] Medical History Arthritis Endometrial cancer High blood pressure Malignant neoplasm of endometrium (10/30/15) Mixed incontinence Morbid obesity with body mass index (BMI) of 40.0 to 49.9 (~10/30/15) Neuropathy Obesity (10/30/15) Obstructive sleep apnea syndrome (10/30/15) Postmenopausal atrophic vaginitis Shortness of breath on exertion Surgical History History of hip replacement History of hip replacement History of tonsillectomy Hx of cataract surgery Status post delivery Status post delivery Status post surgery (05/26/14) Status post surgery (09/24/15) Family History Daughter Cancer Father Cerebrovascular accident (stroke) Hypertension Social History marital status: number of children: 2 household members: spouse Smoking Status: Never smoker alcohol intake: current Discharge Plan Discharge Plan Patient Disposition: Home Provider Discharge Comment: You were admitted for retaining fluid in the lungs causing shortness of breath. We gave you IV lasix to pee off extra fluid which helped improve your breathing. You were also on a steroid for 5 days and have 2 days left. I've stopped your HCTZ due to low sodium levels and started spiron olactone for your BP. I've also sent lasix as needed if you begin to retain water again. Discharge orders & Medications Prescriptions: New prednisone 20 mg Tablet 40 mg PO DAILY 2 Days Qty: 4 0RF Rx Instructions: start 01/10 and finish 01/11 spironolactone 25 mg Tablet 25 mg PO DAILY 90 Days Qty: 90 0RF furosemide [Lasix] 40 mg tablet 40 mg PO DAILY PRN (Reason: edema) Qty: 90 0RF Continued multivitamin Tablet 2 tab PO DAILY Qty: 0 acetaminophen 500 mg capsule 1,000 mg PO Q6H PRN (Reason: Pain) Rx Instructions: States taken about every 5-5.5 hours. estradiol 0.01 % (0.1 mg/gram) cream See Rx Instructions .ROUTE .COMPLEX Qty: 42.5 3RF Dose Instruction: INSERT 1 GRAM VAGINALLY TWO TIMES PER WEEK AT BEDTIME DIRECTED Rx Instructions: INSERT 1 GRAM VAGINALLY TWO TIMES PER WEEK AT BEDTIME DIRECTED (mondays and ) atorvastatin 20 mg tablet 20 mg PO DAILY valsartan 160 mg tablet 160 mg PO DAILY biotin 800 mcg Tablet 800 mcg PO DAILY Label Comments: PT UNSURE OF DOSE cholecalciferol (vitamin D3) [Vitamin D3] 25 mcg (1,000 unit) Capsule 50 mcg PO DAILY metronidazole 0.75 % cream 1 applic TOPICAL DIRECTED PRN (Reason: Rash) Rx Instructions: applies to breakouts on face acidophilus-pectin, citrus 100 million cell-10 mg Capsule 1 cap PO BID Calm-Mag 1 dose PO BEDTIME albuterol 90 mcg/actuation aerosol 90 mcg inhalation Q6H PRN (Reason: Shortness Of Breath) Discontinued hydrochlorothiazide 12.5 mg tablet 12.5 mg PO DAILY Follow up/Referrals: Herb Graves MD [Primary Care Provider] - Nena Epperson MD [Physician] - 1 Month Visit Report/Discharge Packet Instructions: DI for Heart Failure, Heart Failure: Salt and Fluids Discharge Data Primary Care Provider: Herb Graves Quality VTE Deep Vein Thrombosis/Pulmonary Embolism Present on Admission: No
== END 2022-01-09 15:41 | disposition home or self-care (01) | DRG 291 ==
LOC: ED 09:39 → AC 09:41
PROVIDERS: Student in an Organized Health Care Education/Training Program; Admitting Provider Neuromusculoskeletal Medicine, Sports Medicine; Emergency Provider Family Medicine Addiction Medicine; PCP Student in an Organized Health Care Education/Training Program; Referring Provider Family Medicine Addiction Medicine; Visit Provider Neuromusculoskeletal Medicine, Sports Medicine
DX: I11.0 Hypertensive heart disease with heart failure (principal); I50.31 Acute diastolic (congestive) heart failure; J96.01 Acute respiratory failure with hypoxia; E87.1 Hypo-osmolality and hyponatremia; Z68.41 Body mass index [BMI] 40.0-44.9, adult; I27.20 Pulmonary hypertension, unspecified; E66.01 Morbid (severe) obesity due to excess calories; E78.5 Hyperlipidemia, unspecified; N95.2 Postmenopausal atrophic vaginitis; J44.9 Chronic obstructive pulmonary disease, unspecified; Z66 Do not resuscitate; Z20.822 Contact with and (suspected) exposure to COVID-19
CPT/HCPCS: 36415; 71045; 71275; 80048; 80053; 81001; 82550; 83605; 83690; 83735; 83880; 84145; 84484; 85025; 86140; 87040; 87070; 87205; 87635; 93005; 93010; 94640; 94760; 94762; 99284; 99285; C9803; C8929; J1644; J1940; J7613; Q9957; Q9967

== ENCOUNTER → 2022-01-31 10:27 | Outpatient (CLI) | payer MEDICARE, SELFPAY ==
[2022-01-07 09:43] VITALS: BMI 43.4
[2022-01-31 12:07] LABS: BUN Creatinine Ratio 37.2 (6-22); Blood Urea Nitrogen 29 mg/dL (7-17); Calcium 9.4 mg/dL (8.4-10.2); Carbon Dioxide 30 mmol/L (22-32); Chloride 98 mmol/L (98-107); Cholesterol 140 mg/dL (140-199); Estimated Glomerular Filt Rate > 60 mL/min (>60); Glucose 107 mg/dL (80-110); HDL Cholesterol 42 mg/dL (40-60); HEMOLYSIS < 15 (0-50); LDL Cholesterol Calculated 59 mg/dL (<100); Potassium 5.2 mmol/L (3.4-5.1); Sodium 137 mmol/L (137-145); Triglycerides 193 mg/dL (35-150)
== END ==
PROVIDERS: PCP Student in an Organized Health Care Education/Training Program; Referring Provider Nurse Practitioner Family; Visit Provider Nurse Practitioner Family
DX: I50.32 Chronic diastolic (congestive) heart failure (principal); R60.0 Localized edema; I70.0 Atherosclerosis of aorta
CPT/HCPCS: 36415; 80048; 80061

== ENCOUNTER → 2022-03-04 09:39 | Outpatient (CLI) | payer MEDICARE, SELFPAY ==
[2022-01-07 09:43] VITALS: BMI 43.4
[2022-03-04 13:26] LABS: BUN Creatinine Ratio 41.6 (6-22); Blood Urea Nitrogen 37 mg/dL (7-17); Calcium 9.5 mg/dL (8.4-10.2); Carbon Dioxide 26 mmol/L (22-32); Chloride 92 mmol/L (98-107); Estimated Glomerular Filt Rate > 60 mL/min (>60); Glucose 104 mg/dL (80-110); HEMOLYSIS < 15 (0-50); Sodium 129 mmol/L (137-145)
[2022-03-04 13:49] LABS: Potassium 5.8 mmol/L (3.4-5.1)
== END ==
PROVIDERS: PCP Student in an Organized Health Care Education/Training Program; Referring Provider Nurse Practitioner Family; Visit Provider Nurse Practitioner Family
DX: I50.32 Chronic diastolic (congestive) heart failure (principal); I10 Essential (primary) hypertension
CPT/HCPCS: 36415; 80048

== ENCOUNTER → 2022-03-21 08:13 | Outpatient (CLI) | payer MEDICARE, SELFPAY ==
[2022-01-07 09:43] VITALS: BMI 43.4
--- NOTE | 2022-03-21 | DI.MG.S_ITS ---
BILATERAL DIGITAL SCREENING MAMMOGRAM 3D/2D WITH CAD: 03/21/2022 CLINICAL: Routine screening. Comparison is made to exams dated: 03/20/2021 mammogram, 03/16/2020 mammogram, and 11/18/2016 mammogram - [facility]. There are scattered areas of fibroglandular density in both breasts (category b / 25%-50% glandular tissue). Current study was also evaluated with a Computer Aided Detection (CAD) system. There are benign calcifications in both breasts. There is a mole marker on both breasts. No significant masses, calcifications, or other findings are seen in either breast. There has been no significant interval change. IMPRESSION: BENIGN There is no mammographic evidence of malignancy. A 1 year screening mammogram is recommended. Based on the Tyrer Cuzick model (a risk assessment model) the patient's lifetime risk is 0.4% and her 10 year risk is 0.0%. According to the ACR, ACS, and NCCN guidelines, an annual breast MRI exam along with mammogram is recommended if the patient's lifetime risk is 20% or greater. This exam was interpreted at Station ID: [id number]. NOTE: For mammograms, a report in lay terms will be sent to the patient. Approximately 15% of breast malignancies will not be visualized mammographically. In the management of a palpable breast mass, a negative mammogram must not discourage biopsy of a clinically suspicious lesion. Electronically Signed By: Lonnie lewis/karlie:03/21/2022 11:34:31 copy to: SARAI MTZ letter sent: Normal Exam ACR BI-RADS Category 2: Benign Finding(s) 3342F
== END ==
PROVIDERS: PCP Student in an Organized Health Care Education/Training Program; Referring Provider Student in an Organized Health Care Education/Training Program; Visit Provider Student in an Organized Health Care Education/Training Program
DX: Z12.31 Encounter for screening mammogram for malignant neoplasm of breast (principal)
CPT/HCPCS: 77063; 77067

== ENCOUNTER → 2022-05-06 13:25 | Outpatient (CLI) | payer MEDICARE, SELFPAY ==
[2022-01-07 09:43] VITALS: BMI 43.4
[2022-05-06 14:35] LABS: BUN Creatinine Ratio 34.2 (6-22); Blood Urea Nitrogen 27 mg/dL (7-17); Calcium 9.6 mg/dL (8.4-10.2); Carbon Dioxide 26 mmol/L (22-32); Chloride 101 mmol/L (98-107); Estimated Glomerular Filt Rate > 60 mL/min (>60); Glucose 89 mg/dL (80-110); HEMOLYSIS < 15 (0-50); Potassium 5.3 mmol/L (3.4-5.1); Sodium 137 mmol/L (137-145)
== END ==
PROVIDERS: PCP Student in an Organized Health Care Education/Training Program; Referring Provider Internal Medicine Cardiovascular Disease; Visit Provider Internal Medicine Cardiovascular Disease
DX: I10 Essential (primary) hypertension (principal)
CPT/HCPCS: 36415; 80048

== ENCOUNTER → 2022-05-20 12:10 | Outpatient (CLI) | payer MEDICARE, SELFPAY ==
[2022-01-07 09:43] VITALS: BMI 43.4
[2022-05-20 14:05] LABS: BUN Creatinine Ratio 35.1 (6-22); Blood Urea Nitrogen 27 mg/dL (7-17); Calcium 9.8 mg/dL (8.4-10.2); Carbon Dioxide 26 mmol/L (22-32); Chloride 95 mmol/L (98-107); Estimated Glomerular Filt Rate > 60 mL/min (>60); Glucose 92 mg/dL (80-110); HEMOLYSIS < 15 (0-50); Potassium 4.4 mmol/L (3.4-5.1); Sodium 135 mmol/L (137-145)
== END ==
PROVIDERS: PCP Student in an Organized Health Care Education/Training Program; Referring Provider Internal Medicine Cardiovascular Disease; Visit Provider Internal Medicine Cardiovascular Disease
DX: I10 Essential (primary) hypertension (principal)
CPT/HCPCS: 36415; 80048

== ENCOUNTER → 2022-06-03 14:41 | Outpatient (CLI) | payer MEDICARE, SELFPAY ==
[2022-01-07 09:43] VITALS: BMI 43.4
--- NOTE | 2022-06-03 14:42 | DI.RAD.S_ITS ---
PROCEDURE: XR KNEE LT 3V INDICATIONS: Reassess Bilateral knee arthritis TECHNIQUE: 3 views of the knee were acquired. COMPARISON: None. FINDINGS: Bones: No fractures or dislocations. No suspicious bony lesions. Severe medial compartment osteoarthritic degenerative changes. Mild lateral and patellofemoral compartment osteoarthritic degenerative changes. Soft tissues: No joint effusion. No suspicious soft tissue calcifications. IMPRESSION: Left knee tricompartmental osteoarthritis with severe degenerative changes in the medial compartment. Dictated by: Eve Quiñonez MD, PhD on 06/03/2022 at 15:56 Approved by: Eve Quiñonez MD, PhD on 06/03/2022 at 15:56
--- NOTE | 2022-06-03 14:42 | DI.RAD.S_ITS ---
PROCEDURE: XR KNEE RT 3V INDICATIONS: Reassess Bilateral knee arthritis TECHNIQUE: 3 views of the knee were acquired. COMPARISON: [facility], CR, XR KNEE ARTHRITIC SERIES LT, 08/31/2018, 11:07. FINDINGS: Bones: No fractures or dislocations. No suspicious bony lesions. Mild tricompartmental osteoarthritic degenerative changes. Superior patellar bone spur. Soft tissues: No joint effusion. No suspicious soft tissue calcifications. IMPRESSION: Right knee mild tricompartmental osteoarthritis. Dictated by: Eve Quiñonez MD, PhD on 06/03/2022 at 15:56 Approved by: Eve Quiñonez MD, PhD on 06/03/2022 at 15:57
== END ==
PROVIDERS: PCP Student in an Organized Health Care Education/Training Program; Referring Provider Student in an Organized Health Care Education/Training Program; Visit Provider Student in an Organized Health Care Education/Training Program
DX: M17.0 Bilateral primary osteoarthritis of knee (principal)
CPT/HCPCS: 73562

== ENCOUNTER → 2022-07-15 15:07 | Outpatient (CLI) | payer MEDICARE, SELFPAY ==
[2022-01-07 09:43] VITALS: BMI 43.4
--- NOTE | 2022-07-15 15:08 | DI.RAD.S_ITS ---
Bone Density Report Name: MARY HAYES Age: 81 Sex: Female Ethnicity: White Date of : 1940 Indication: postmenopausal; screening for osteoporosis; Referring Provider: ANTOINE ZHOU Study: Bone densitometry was performed. Exam Date: July 15, 2022 Accession number: [id number] Bone Density: Region BMD T-score Z-score Classification Total Forearm (Left) 0.603 0.4 3.7 Normal 1/3 Forearm (Left) 0.706 0.2 3.6 Normal UD Forearm (Left) 0.475 0.6 3.0 Normal World Health Organization criteria for BMD impression classify patients as: Normal (T-score at or above -1.0), Osteopenia (T-score between -1.0 and -2.5), or Osteoporosis (T-score at or below -2.5). Impression: UNAPPROVED The patient has normal bone mass. Discussion: UNAPPROVED LOW RISK OF FRACTURE; BONE DENSITY IS WELL ABOVE THE MINIMUM DESIRABLE LEVEL AND ABOVE AVERAGE FOR AGE AND SEX AT ALL SKELETAL SITES TESTED. This person's bone density is above expected limits for age and sex. This is rarely clinically significant, but should be pursued if there are significant musculoskeletal complaints. The patient should follow a healthful lifestyle (good nutrition with adequate calcium and vitamin D, and appropriate weight-bearing exercise). Follow-Up: UNAPPROVED Consider repeating this study in 5 years or sooner if there is some new clinical indication. Reported by: EDIL RICE M.D on 07/15/2022 2:49:00 PM.
== END ==
PROVIDERS: PCP Student in an Organized Health Care Education/Training Program; Referring Provider Student in an Organized Health Care Education/Training Program; Visit Provider Student in an Organized Health Care Education/Training Program
DX: Z78.0 Asymptomatic menopausal state (principal); Z13.820 Encounter for screening for osteoporosis
CPT/HCPCS: 77081

== ENCOUNTER → 2022-09-15 13:10 | Outpatient (CLI) | payer MEDICARE, SELFPAY ==
[2022-01-07 09:43] VITALS: BMI 43.4
[2022-09-16 08:35] LABS: x Labcorp Estim. Avg Glu (eAG) 140 mg/dL (.); x Labcorp Hemoglobin A1c 6.5 % (4.8-5.6)
== END ==
PROVIDERS: PCP Student in an Organized Health Care Education/Training Program; Referring Provider Student in an Organized Health Care Education/Training Program; Visit Provider Student in an Organized Health Care Education/Training Program
DX: R73.03 Prediabetes (principal)
CPT/HCPCS: 36415; 83036

== ENCOUNTER → 2022-12-30 10:55 | Outpatient (CLI) | payer MEDICARE, SELFPAY ==
[2022-01-07 09:43] VITALS: BMI 43.4
[2022-12-30 18:01] LABS: Microalbumi Creatinin Ratio Ur 42.8 ug/mg CR (<30); Microalbumin Urine Random 1.2 mg/dL (0-1.6)
== END ==
PROVIDERS: PCP Pediatrics; Referring Provider Pediatrics; Visit Provider Pediatrics
DX: E66.01 Morbid (severe) obesity due to excess calories (principal); E78.00 Pure hypercholesterolemia, unspecified; I10 Essential (primary) hypertension; I50.9 Heart failure, unspecified; R73.03 Prediabetes
CPT/HCPCS: 82043; 82570

== ENCOUNTER → 2023-02-03 11:08 | Outpatient (CLI) | payer MEDICARE, SELFPAY ==
[2022-01-07 09:43] VITALS: BMI 43.4
== END ==
PROVIDERS: PCP Pediatrics; Visit Provider Physician Assistant
DX: R30.0 Dysuria (principal)
CPT/HCPCS: 87077; 87086; 87186

== ENCOUNTER 2023-02-06 08:47 | Emergency (ER) | payer MEDICARE, SELFPAY ==
[2022-01-07 09:43] VITALS: BMI 43.4
[2023-02-06] VITALS (15 sets, daily range): BP systolic 97–183; BP diastolic 53–78; PULSE 71–99; RESP 18–27; TEMP 36.7; O2SAT 91–97; BMI 93.9
--- NOTE | 2023-02-06 09:03 | DI.RAD.S_ITS ---
PROCEDURE: XR CHEST 1V INDICATIONS: chest pain TECHNIQUE: One view of the chest was acquired. COMPARISON: [facility], CR, XR CHEST 1V, 01/07/2022, 8:24. [facility], CR, XR CHEST 1V, 05/03/2020, 14:37. [facility], CT, CT CHEST ABDOMEN PELVIS WITH CONTRAST, 10/30/2022, 13:53. FINDINGS: Surgical changes and devices: None. Lungs and pleura: Mild bilateral peripheral airspace opacities. Mediastinum: Mediastinal contours appear normal. Heart size is normal. Bones and chest wall: No suspicious bony lesions. Overlying soft tissues appear unremarkable. IMPRESSION: Mild bilateral peripheral airspace opacities, could represent viral pneumonia or scarring Dictated by: Lyle Sewell M.D. on 02/06/2023 at 9:37 Approved by: Lyle Sewell M.D. on 02/06/2023 at 9:39
--- NOTE | 2023-02-06 09:20 | ED_ITS ---
HPI - Chest Pain General Chief Complaint: Chest Pain Stated Complaint: can't breathe T-2 Time Seen by Provider: 02/06/23 09:13 Source: patient Mode of arrival: Ambulatory Limitations: no limitations History of Present Illness HPI narrative: Patient here with from home for complaints of shortness of breath. Has history of CHF. states she did see a trade marker in the past for some lung issues. No definitive history of COPD. But does have CHF. Patient sees [facility] Cardiology for CHF. No recent changes in medication. Denies any weight gain. She states she is kept the same weight. She monitors her fluid intake. No calf pain or ankle swelling or feet swelling. Does not smoke. He is not on home oxygen. However 88% room air and requiring 2 L nasal cannula now. No recent illness. Denies any chest pain at rest. However feels short of breath with wheezing and chest burning with walking. Related Data Home Medications Medication Instructions Recorded Confirmed multivitamin 2 tab PO DAILY ##0 09/23/12 02/03/23 biotin 800 mcg tablet 800 mcg PO DAILY 08/31/20 02/03/23 acetaminophen 500 mg capsule 1,000 mg PO Q6H PRN Pain 07/29/21 02/03/23 atorvastatin 20 mg tablet 20 mg PO DAILY 12/12/21 02/03/23 Calm-Mag 1 dose PO BEDTIME 01/07/22 02/03/23 acidophilus 100 million 1 cap PO BID 01/07/22 02/03/23 cell-pectin, citrus 10 mg capsule valsartan 160 mg tablet 320 mg PO DAILY 02/03/22 02/03/23 spironolactone 25 mg tablet 12.5 mg PO DAILY 06/03/22 02/03/23 chlorthalidone 25 mg tablet 25 mg PO DAILY 08/22/22 02/03/23 Previous Rx's Medication Instructions Recorded furosemide 40 mg tablet (Lasix) 40 mg PO DAILY PRN edema #90 tabs 01/09/22 estradiol 0.01% (0.1 mg/gram) See Rx Instructions .Route 07/29/22 vaginal cream .COMPLEX #42.5 grams albuterol sulfate 90 mcg/actuation 2 inh inhalation QID PRN shortness 11/06/22 aerosol inhaler of breath or wheezing #8.5 grams celecoxib 200 mg capsule (Celebrex) 200 mg PO DAILY #30 caps 12/03/22 DISABLED PARKING PERMIT #1 ea 12/15/22 nitrofurantoin 100 mg PO Q12H 5 days #10 caps 02/03/23 monohydrate/macrocrystals 100 mg capsule (Macrobid) Allergies Allergy/AdvReac Type Severity Reaction Status Date / Time oxycodone Allergy Verified 02/06/23 11:39 codeine AdvReac Mild NAUSEA Verified 02/06/23 11:39 adhesive tape AdvReac Unknown removes my Verified 02/06/23 11:39 skin Review of Systems Review of Systems Narrative: GENERAL: negative chills, fatigue, malaise, fever, sweats. HEENT: negative sinus pain, ear pain, sore throat RESPIRATORY: Positive dyspnea, cough CARDIOVASCULAR: Positive chest pain, palpitations GASTROINTESTINAL: negative nausea, vomiting, abdominal pain : negative dysuria, frequency, hematuria MUSCULOSKELETAL: negative muscle or bony pain SKIN: negative rash, skin lesions NEUROLOGIC: negative weakness, numbness ROS Unobtainable: All systems reviewed & are unremarkable except as noted in HPI and below Patient History Medical History Vitamin B12 deficiency Morbid obesity with body mass index (BMI) of 40.0 to 49.9 (~10/30/15) Shortness of breath on exertion Neuropathy Postmenopausal atrophic vaginitis Arthritis Obstructive sleep apnea syndrome (10/30/15) Malignant neoplasm of endometrium (10/30/15) Surgical History Hx of cataract surgery Status post surgery (09/24/15) History of hip replacement History of hip replacement Status post delivery Status post delivery History of tonsillectomy Status post surgery (05/26/14) Family History Daughter Cancer Father Cerebrovascular accident (stroke) Hypertension Social History marital status: number of children: 2 household members: spouse Smoking Status: Never smoker alcohol intake: current Smoking Status: Never smoker alcohol intake frequency: holidays/special occasions only Substance Use Type: does not use Exam Narrative Exam Narrative: GENERAL: in no distress, not toxic not dyspneic HEAD: Normocephalic. EYES: Pupils equal round ENT: Mucous membranes moist. NECK: Trachea midline. CARDIOVASCULAR: Regular rate and rhythm RESPIRATORY: Patient requiring 2 L nasal cannula. There is bibasilar wheezing. No respiratory distress. Speaking near full sentences. Chest is nontender but pain with deep breath. GASTROINTESTINAL: Abdomen soft, non-tender EXTREMITIES: No gross deformities. BACK: No flank tenderness. NEURO: AOx4. SKIN: Warm and dry PSYCH: Not anxious, is cooperative Initial Vital Signs Initial Vital Signs: Vital Signs Pulse Rate 99 H 02/06/23 08:57 Pulse Oximetry 91 02/06/23 08:57 Course Orders Ordered: ED Orders 02/06/23 10:07 Blood Culture Stat 02/06/23 11:06 Lactate (Lactic Acid) Stat 02/06/23 16:30 PTT [PTT Partial Thromboplastin Augustine] Stat Discontinued Medications Albuterol/Ipratropium (Albuterol/Ipratropium 3 Ml Ampul) 3 ml INH NOW ONE Stop: 02/06/23 09:20 Last Admin: 02/06/23 09:25 Dose: 3 ml Documented By: DEONNA Aspirin (Aspirin 81 Mg Chew Tab) 324 mg PO NOW ONE Stop: 02/06/23 09:04 Last Admin: 02/06/23 09:58 Dose: 324 mg Documented By: NATI Heparin Sodium (Porcine) (Heparin 5,000 Unit/Ml Vial) 7,500 unit IV NOW ONE Stop: 02/06/23 10:06 Last Admin: 02/06/23 10:20 Dose: Not Given Documented By: PENELOPE Heparin Sodium (Porcine) (Heparin 5,000 Unit/Ml Vial) 5,000 unit IV NOW ONE Stop: 02/06/23 10:19 Last Admin: 02/06/23 10:36 Dose: 5,000 unit Documented By: NATI Heparin Sodium/Dextrose (Heparin Drip) 25,000 unit in 500 mls @ 52.32 mls/hr IV CONT JOSE; Protocol Last Admin: 02/06/23 10:20 Dose: Not Given Documented By: PENELOPE Ceftriaxone Sodium 2,000 mg/ (Sodium Chloride) 100 mls @ 200 mls/hr IV NOW ONE Stop: 02/06/23 10:10 Last Infusion: 02/06/23 11:55 Dose: Infused Documented By: Admin: 02/06/23 11:23 Dose: 200 mls/hr Documented By: NATI Doxycycline Hyclate 100 mg/ (Sodium Chloride) 100 mls @ 100 mls/hr IV NOW ONE Stop: 02/06/23 10:10 Last Infusion: 02/06/23 12:58 Dose: Infused Documented By: Admin: 02/06/23 11:58 Dose: 100 mls/hr Documented By: NATI Heparin Sodium/Dextrose (Heparin Drip) 25,000 unit in 500 mls @ 23.732 mls/hr IV CONT JOSE; Protocol Last Titration: 02/06/23 13:01 Dose: 10.11 units/kg/hr, 20 mls/hr Documented By: NATI Co-signed By: PENELOPE Admin: 02/06/23 10:31 Dose: 10.11 units/kg/hr, 20 mls/hr Documented By: NATI Co-signed By: KENROY Vital Signs Vital signs: Vital Signs - 8 hr 02/06/23 11:00 02/06/23 11:30 02/06/23 11:54 Pulse Rate 73 71 Respiratory Rate 26 H 27 H Blood Pressure 183/78 H Pulse Oximetry 94 95 Oxygen Delivery Method Nasal Cannula Nasal Cannula Nasal Cannula Oxygen Flow Rate 5 5 5 02/06/23 11:54 02/06/23 12:00 02/06/23 12:00 Pulse Rate 74 74 Respiratory Rate 23 23 Blood Pressure 165/75 H Pulse Oximetry 97 96 Oxygen Delivery Method Nasal Cannula Nasal Cannula Oxygen Flow Rate 5 5 02/06/23 12:30 02/06/23 12:30 Pulse Rate 72 Respiratory Rate 21 Blood Pressure 163/76 H Pulse Oximetry 96 Oxygen Delivery Method Nasal Cannula Oxygen Flow Rate 5 MDM - Chest Pain Lab Data 02/06/23 09:15 02/06/23 09:15 Labs: Lab Results 02/06/23 02/06/23 02/06/23 Range/Units 09:15 09:16 11:06 WBC 15.3 H (4.5-11.0) X10^3/uL RBC 3.67 L (4.0-5.2) X10^6/uL Hgb 10.8 L (12.0-16.0) g/dL Hct 32.1 L (36-46) % MCV 87.3 (80-100) fL MCH 29.4 (26-34) PG MCHC 33.6 (30-36) % RDW 14.0 (11.6-14.8) % Plt Count 252 (150-400) X10^3/uL Neut % (Auto) 83.0 H (50-75) % Lymph % (Auto) 7.9 L (25-40) % Kay % (Auto) 7.2 (3-14) % Eos % (Auto) 1.6 L (2-4) % Baso % (Auto) 0.3 (0-2) % Neut # (Auto) 76205 H (8624-3224) /uL Lymph # (Auto) 1200 (6600-0042) /uL Kay # (Auto) 1100 H (0-900) /uL Eos # (Auto) 200 (0-450) /uL Baso # (Auto) 0 (0-100) /uL PT 14.5 H (10.1-12.7) SECONDS INR 1.3 (0.9-1.3) APTT 31 (26-36) SECONDS Sodium 126 L (137-145) mmol/L Potassium 4.2 (3.4-5.1) mmol/L Chloride 93 L (98-107) mmol/L Carbon Dioxide 26 (22-32) mmol/L BUN 35 H (7-17) mg/dL Creatinine 1.06 H (0.52-1.04) mg/dL Estimated GFR 52 L (>60) mL/min BUN/Creatinine Ratio 33.0 H (6-22) Glucose 138 H (80-110) mg/dL Lactate 2.7 H 1.5 (0.7-2.1) mmol/L Calcium 9.5 (8.4-10.2) mg/dL Magnesium 1.9 (1.6-2.3) mg/dL Total Bilirubin 1.6 H (0.2-1.3) mg/dL AST 23 (14-36) IU/L ALT 23 (<35) IU/L Alkaline Phosphatase 33 L (38-126) U/L Total Creatine Kinase 49 (30-135) U/L Troponin I 0.455 H* (0.01-0.034) ng/mL NT-Pro-B Natriuret Pep 4930 H (<450) pg/mL Total Protein 6.7 (6.3-8.2) g/dL Albumin 3.8 (3.5-5.0) g/dL Globulin 2.9 (1.7-4.1) g/dL Albumin/Globulin Ratio 1.3 (1.0-2.8) Lipase 39 (23-300) U/L Procalcitonin 0.94 H (<0.5) ng/mL Chlamy pneumoniae PCR Not detected (Not Detect) Adenovirus (PCR) Not detected (Not Detect) B.parapertussis DNA PCR Not detected (Not Detecte) Coronavirus OC43 (PCR) Not detected (Not Detect) Coronavirus HKU1 (PCR) Not detected (Not Detect) Coronavirus 229E (PCR) Not detected (Not Detect) SARS-CoV-2 (PCR) Not detected (Not Detecte) Coronavirus NL63 (PCR) Not detected (Not Detect) Human Metapneumovir PCR Not detected (Not Detect) Influenza A (PCR) Not detected (Not Detect) Influenza Type A (PCR) Not detected (Not Detect) Influenza Type B (PCR) Not detected (Not Detect) M. pneumoniae (PCR) Not detected (Not Detect) Parainfluenza 1 (PCR) Not detected (Not Detect) Parainfluenza 2 (PCR) Not detected (Not Detect) Parainfluenza 3 (PCR) Not detected (Not Detect) Parainfluenza 4 (PCR) Not detected (Not Detect) RSV (PCR) Not detected (Not Detect) Entero/Rhino (PCR) Not detected (Not Detect) Imaging Data Chest x-ray: Radiologist's Impression: [address] [address] XRay Report Signed Patient: Evon Farrell MR#: [id number] : 1940 Acct:[id number] Age/Sex: 82 / F Date of Service: 02/06/23 Loc: ED Accession Number: [id number] Procedure: XR chest 1V Ordering Provider: Bartolo Addison MD PROCEDURE: XR CHEST 1V INDICATIONS: chest pain TECHNIQUE: One view of the chest was acquired. COMPARISON: [facility], CR, XR CHEST 1V, 01/07/2022, 8:24. [facility], CR, XR CHEST 1V, 05/03/2020, 14:37. [facility], CT, CT CHEST ABDOMEN PELVIS WITH CONTRAST, 10/30/2022, 13:53. FINDINGS: Surgical changes and devices: None. Lungs and pleura: Mild bilateral peripheral airspace opacities. Mediastinum: Mediastinal contours appear normal. Heart size is normal. Bones and chest wall: No suspicious bony lesions. Overlying soft tissues appear unremarkable. IMPRESSION: Mild bilateral peripheral airspace opacities, could represent viral pneumonia or scarring Dictated by: Lyle Sewell M.D. on 02/06/2023 at 9:37 Approved by: Lyle Sewell M.D. on 02/06/2023 at 9:39 [facility] Narrative Medical decision making narrative: Patient here with from home for complaints of shortness of breath. Has history of CHF. states she did see a trade marker in the past for some lung issues. No definitive history of COPD. But does have CHF. Patient sees [facility] for CHF. No recent changes in medication. Denies any weight gain. She states she is kept the same weight. She monitors her fluid intake. No calf pain or ankle swelling or feet swelling. Does not smoke. He is not on home oxygen. However 88% room air and requiring 2 L nasal cannula now. No recent illness. Denies any chest pain at rest. However feels short of breath with wheezing and chest burning with walking. After history and exam CBC CMP EKG troponin BNP respiratory panel chest x-ray breathing treatment [facility] CC: Shortness of breath Complicating co-morbidities: History of CHF Data collected from: Patient Medical records reviewed: No recent visit for this complaint, there is cardiology office visit in December [address] Epperson Differential considered: Includes but not limited to CHF pneumonia respiratory infection pneumonia bronchitis STEMI non-STEMI angina Exam documented above, pertinent findings include: Basilar wheezing Lab Test results independently reviewed as above. Pertinent findings: Troponin 0.455 WBC 15.3 hemoglobin 10.8 INR 1.3 sodium 126 potassium 4.2 BUN 35 creatinine 1.06 GFR 52 Independently reviewed EKG sinus rhythm no ST elevation or depression. Rate 86 Imaging studies independently reviewed: Chest x-ray bilateral peripheral airspace opacities, possible pneumonia Consultations: 10:00 a.m. spoke with [facility] Cardiology dr damico, recommends transferring patient however no beds available at [facility]. 10:30 p.m.. Spoke with [facility], Dr. Quintanilla, he will accept patient in consult. Agrees with heparin. 10:[address] Muñoz, [facility], hospitalist, she will accept patient Treatments: DuoNeb aspirin heparin Rocephin doxycycline heparin Re-evaluations: 10:00 a.m.. Reviewed results with patient and . Laboratory studies indicate non-STEMI. Currently chest pain-free. Patient states breathing treatment did help her. They understand will likely need to transfer for higher level of care. Discussion: Appropriate for transfer for higher level of care, troponin may be reflection of possible early sepsis/pneumonia. However heparin was started. Cardiology consulted. Antibiotics have been started Rocephin and doxycycline. Patient requiring supplemental oxygen which she usually does not have. Not toxic. Did feel better after breathing treatment. No current chest pain Diagnosis: Non-STEMI/community-acquired pneumonia Critical Care Time Critical Care Time Attestation: Critical Care Time 35 minutes: Critical care time is separate from other billable procedures. This critical care time includes consultation with family and other consulting doctors, review of records, and interpretation of data from labs, EKGs, imaging, etc. Discharge Plan Departure Patient Disposition: [facility] Clinical Impression: Non-ST elevated myocardial infarction (non-STEMI), Community acquired pneumonia Prescriptions: No Action nitrofurantoin monohyd/m-cryst [Macrobid] 100 mg capsule 100 mg PO Q12H 5 Days Qty: 10 0RF Rx Instructions: must administer with a meal/food multivitamin Tablet 2 tab PO DAILY Qty: 0 acetaminophen 500 mg capsule 1,000 mg PO Q6H PRN (Reason: Pain) Rx Instructions: States taken about every 5-5.5 hours. atorvastatin 20 mg tablet 20 mg PO DAILY valsartan 160 mg tablet 320 mg PO DAILY celecoxib [Celebrex] 200 mg capsule 200 mg PO DAILY Qty: 30 2RF (DME) DISABLED PARKING PERMIT See Rx Instructions .ROUTE .MEDSUPPLY Qty: 1 0RF Rx Instructions: I FIND THIS PATIENT TO BE MEDICALLY DISABLED AND QUALIFIED FOR DISABLE PARKING INDICATED, AND SIGNED ON THE ACCOMPANYING [employer] APPLICATION FOR INDIVIDUALS spironolactone 25 mg tablet 12.5 mg PO DAILY albuterol sulfate 90 mcg/actuation HFA aerosol inhaler 2 inh inhalation QID PRN (Reason: shortness of breath or wheezing) Qty: 8.5 3RF biotin 800 mcg Tablet 800 mcg PO DAILY Patient Comments: PT UNSURE OF DOSE acidophilus-pectin, citrus 100 million cell-10 mg Capsule 1 cap PO BID Calm-Mag 1 dose PO BEDTIME furosemide [Lasix] 40 mg tablet 40 mg PO DAILY PRN (Reason: edema) Qty: 90 0RF chlorthalidone 25 mg tablet 25 mg PO DAILY estradiol 0.01 % (0.1 mg/gram) cream See Rx Instructions .ROUTE .COMPLEX Qty: 42.5 3RF Dose Instruction: INSERT 1 GRAM VAGINALLY TWO TIMES PER WEEK AT BEDTIME DIRECTED Rx Instructions: INSERT 1 GRAM VAGINALLY TWO TIMES PER WEEK AT BEDTIME DIRECTED (mondays and ) Referrals: Godfrey Yun MD [Primary Care Provider] -
[2023-02-06] MEDS: ALBUTEROL/IPRATROPIUM 3 ML AMPUL INH (09:25)
[2023-02-06 09:30] LABS: Add Manual Diff / Slide Review NO; Basophils Absolute Auto 0 /uL (0-100); Basophils Percent Auto 0.3 % (0-2); Eosinophils Absolute Auto 200 /uL (0-450); Eosinophils Percent Auto 1.6 % (2-4); Hematocrit 32.1 % (36-46); Hemoglobin 10.8 g/dL (12.0-16.0); Lymphocytes Absolute Auto 1200 /uL (1100-4500); Lymphocytes Percent Auto 7.9 % (25-40); Mean Corpuscular HGB Conc 33.6 % (30-36); Mean Corpuscular Hemoglobin 29.4 PG (26-34); Mean Corpuscular Volume 87.3 fL (80-100); Monocytes Absolute Auto 1100 /uL (0-900); Monocytes Percent Auto 7.2 % (3-14); Neutrophils Absolute Auto 12700 /uL (1500-7000); Platelet Count 252 X10^3/uL (150-400); Red Blood Cell Count 3.67 X10^6/uL (4.0-5.2); White Blood Cell Count 15.3 X10^3/uL (4.5-11.0)
[2023-02-06 09:37] LABS: INR 1.3 (0.9-1.3); Prothrombin Time 14.5 SECONDS (10.1-12.7)
[2023-02-06 09:39] LABS: PTT Partial Thromboplastin Tim 31 SECONDS (26-36)
[2023-02-06 09:40] LABS: Alanine Aminotransferase 23 IU/L (<35); Albumin 3.8 g/dL (3.5-5.0); Albumin Globulin Ratio 1.3 (1.0-2.8); Alkaline Phosphatase 33 U/L (38-126); Aspartate Aminotransferase 23 IU/L (14-36); Bilirubin Total 1.6 mg/dL (0.2-1.3); Blood Urea Nitrogen 35 mg/dL (7-17); Calcium 9.5 mg/dL (8.4-10.2); Carbon Dioxide 26 mmol/L (22-32); Chloride 93 mmol/L (98-107); Creatine Kinase 49 U/L (30-135); Estimated Glomerular Filt Rate 52 mL/min (>60); Globulin 2.9 g/dL (1.7-4.1); Glucose 138 mg/dL (80-110); HEMOLYSIS < 15 (0-50); Lipase 39 U/L (23-300); Magnesium 1.9 mg/dL (1.6-2.3); Potassium 4.2 mmol/L (3.4-5.1); Sodium 126 mmol/L (137-145); Total Protein 6.7 g/dL (6.3-8.2)
[2023-02-06 09:53] LABS: Troponin I 0.455 ng/mL (0.01-0.034)
[2023-02-06] MEDS: ASPIRIN 81 MG CHEW TAB 324 MG PO (09:58)
--- NOTE | 2023-02-06 09:58 | PC.NURSE ---
+ trop 0.455 reported 0954. Physician/RN aware.
[2023-02-06 09:59] LABS: NT-proBNP (BNP-Adult 18+) 4930 pg/mL (<450)
[2023-02-06] MEDS: HEPARIN DRIP 25,000 UNIT/500 ML IV.SOLN 20 UNIT IV (10:31)
[2023-02-06 10:32] LABS: Lactate (Lactic Acid) 2.7 mmol/L (0.7-2.1)
[2023-02-06] MEDS: HEPARIN 5,000 UNIT/ML VIAL 5000 UNIT IV (10:36)
[2023-02-06 10:49] LABS: Adenovirus Not Detected (Not Detect); B. parapertussis Not Detected (Not Detecte); Bordetella pertussis Not Detected (Not Detect); Chlamydophila pneumoniae Not Detected (Not Detect); Coronavirus 229E Not Detected (Not Detect); Coronavirus HKU1 Not Detected (Not Detect); Coronavirus NL 63 Not Detected (Not Detect); Coronavirus OC43 Not Detected (Not Detect); Human Metapneumovirus Not Detected (Not Detect); Human Rhinovirus/Enterovirus Not Detected (Not Detect); Influenza A Not Detected (Not Detect); Influenza A(No subj detected) Not Detected (Not Detect); Influenza B Not Detected (Not Detect); Mycoplasma pneumoniae Not Detected (Not Detect); Parainfluenza Virus 1 Not Detected (Not Detect); Parainfluenza Virus 2 Not Detected (Not Detect); Parainfluenza Virus 3 Not Detected (Not Detect); Parainfluenza Virus 4 Not Detected (Not Detect); Respiratory Syncytial Virus Not Detected (Not Detect); SARS- CoV-2 Not Detected (Not Detecte)
[2023-02-06 10:51] LABS: Procalcitonin 0.94 ng/mL (<0.5)
[2023-02-06] MEDS: cefTRIAXone 2,000 MG in SODIUM CHLORIDE 0.9% 100 ML 200 MG IV (11:23)
[2023-02-06 11:58] LABS: Lactate (Lactic Acid) 1.5 mmol/L (0.7-2.1)
[2023-02-06] MEDS: DOXYCYCLINE 100 MG in SODIUM CHLORIDE 0.9% 100 ML IV (11:58)
== END 2023-02-06 13:14 | disposition short-term general hospital (02) ==
PROVIDERS: Emergency Provider Emergency Medicine; PCP Pediatrics
DX: I21.4 Non-ST elevation (NSTEMI) myocardial infarction (principal); J18.9 Pneumonia, unspecified organism
CPT/HCPCS: 36415; 71045; 80053; 82550; 83605; 83690; 83735; 83880; 84145; 84484; 85025; 85610; 85730; 87040; 87633; 93005; 96365; 96366; 96368; 96375; 99285; 99291; J0696; J1644

== ENCOUNTER → 2023-02-13 14:55 | Outpatient (CLI) | payer MEDICARE, SELFPAY ==
[2022-01-07 09:43] VITALS: BMI 43.4
[2023-02-13 17:41] LABS: Blood Urea Nitrogen 81 mg/dL (7-17); Calcium 9.8 mg/dL (8.4-10.2); Carbon Dioxide 28 mmol/L (22-32); Chloride 93 mmol/L (98-107); Glucose 113 mg/dL (80-110); HEMOLYSIS 16 (0-50); Sodium 133 mmol/L (137-145)
[2023-02-13 17:42] LABS: Potassium 5.4 mmol/L (3.4-5.1)
[2023-02-13 20:06] LABS: BUN Creatinine Ratio 43.8 (6-22); Estimated Glomerular Filt Rate 27 mL/min (>60)
== END ==
PROVIDERS: PCP Pediatrics; Referring Provider Internal Medicine Advanced Heart Failure and Transplant Cardiology; Visit Provider Internal Medicine Advanced Heart Failure and Transplant Cardiology
DX: I50.31 Acute diastolic (congestive) heart failure (principal)
CPT/HCPCS: 36415; 80048

== ENCOUNTER → 2023-03-31 16:21 | Outpatient (CLI) | payer MEDICARE, SELFPAY ==
[2022-01-07 09:43] VITALS: BMI 43.4
--- NOTE | 2023-03-31 | DI.MG.S_ITS ---
BILATERAL DIGITAL SCREENING MAMMOGRAM 3D/2D WITH CAD: 03/31/2023 CLINICAL: Routine screening. Family history of breast cancer. Comparison is made to exams dated: 03/21/2022 mammogram, 03/20/2021 mammogram, and 03/16/2020 mammogram - [facility]. There are scattered areas of fibroglandular density in both breasts (category b / 25%-50% glandular tissue). Current study was also evaluated with a Computer Aided Detection (CAD) system. There are benign calcifications in both breasts. No significant masses, calcifications, or other findings are seen in either breast. There has been no significant interval change. IMPRESSION: BENIGN There is no mammographic evidence of malignancy. A 1 year screening mammogram is recommended. Based on the Tyrer Cuzick model (a risk assessment model) the patient's lifetime risk is 0.6% and her 10 year risk is 0.0%. According to the ACR, ACS, and NCCN guidelines, an annual breast MRI exam along with mammogram is recommended if the patient's lifetime risk is 20% or greater. This exam was interpreted at Station ID: [id number]. NOTE: For mammograms, a report in lay terms will be sent to the patient. Approximately 15% of breast malignancies will not be visualized mammographically. In the management of a palpable breast mass, a negative mammogram must not discourage biopsy of a clinically suspicious lesion. Electronically Signed By: Isak go/karlie:04/01/2023 13:53:04 copy to: SAR[facility] MTZ letter sent: Normal Exam ACR BI-RADS Category 2: Benign Finding(s) 3342F
== END ==
PROVIDERS: PCP Pediatrics; Referring Provider Pediatrics; Visit Provider Pediatrics
DX: Z12.31 Encounter for screening mammogram for malignant neoplasm of breast (principal); Z80.3 Family history of malignant neoplasm of breast
CPT/HCPCS: 77063; 77067

== ENCOUNTER → 2023-06-02 07:01 | Outpatient (CLI) | payer MEDICARE, SELFPAY ==
[2022-01-07 09:43] VITALS: BMI 43.4
--- NOTE | 2023-06-04 02:22 | DI.NM.S_ITS ---
DATE OF SERVICE: 06/02/2023 PROCEDURE: Pharmacological perfusion study. INDICATIONS: Chest pain, diastolic heart failure, hypertension. RADIOPHARMACEUTICAL: 25.3 millicurie technetium-99m Myoview IV was injected at stress and 27.1 millicurie technetium-99m Myoview IV was injected at rest. CARDIAC STRESS: The patient underwent pharmacological perfusion study under the supervision of an attending staff as per standard protocol. The patient remained hemodynamically stable. Resting blood pressure 122/84. Baseline EKG revealed sinus rhythm. During stress, no convincing ischemic EKG changes seen. No significant arrhythmias. The patient had minimal dyspnea. Slight headache, but no chest pain. RAW DATA: Significant breast shadow seen. GATED STUDY: Resting LV ejection fraction 71 and stress LV ejection fraction 80% without any obvious wall motion abnormalities. Resting end- diastolic volume 84 mL. TID ratio 0.94, which is within normal limits. Lung/heart ratio 0.39, which is within normal limits. MYOCARDIAL PERFUSION SCAN: This patient does not have any stress prone images. Resting supine and stress supine images were compared to each other. There appears to be minimal apical thinning, otherwise no convincing ischemia or infarction pattern seen. CONCLUSION: I will call this study likely a normal myocardial perfusion study with evidence of apical thinning without any convincing ischemia or infarction. Large breast shadow seen as well. Preserved LV function. No regional wall motion abnormalities. No ischemic electrocardiographic changes or significant arrhythmias. No anginal symptoms. Overall low risk pharmacological perfusion study. Evon Farrell - CHANCE/mahamed/stephanie doc#: [id number]/job#: [id number] dd: 06/03/2023 16:34:00 dt: 06/04/2023 02:15:00 DICTATING MD/COPIES TO: Nena Epperson MD COPIES MNE: CHIP;
== END ==
LOC: NUCM 07:03
PROVIDERS: PCP Pediatrics; Referring Provider Nurse Practitioner; Visit Provider Nurse Practitioner
DX: R07.9 Chest pain, unspecified (principal); I11.0 Hypertensive heart disease with heart failure; I50.30 Unspecified diastolic (congestive) heart failure
CPT/HCPCS: 78452; 93017; A9502; J2785

== ENCOUNTER → 2023-07-30 11:08 | Outpatient (CLI) | payer MEDICARE, SELFPAY ==
[2022-01-07 09:43] VITALS: BMI 43.4
[2023-07-30 12:40] LABS: Add Manual Diff / Slide Review NO; Basophils Absolute Auto 100 /uL (0-100); Basophils Percent Auto 0.9 % (0-2); Eosinophils Absolute Auto 100 /uL (0-450); Hematocrit 39.2 % (36-46); Hemoglobin 12.9 g/dL (12.0-16.0); Lymphocytes Absolute Auto 1900 /uL (1100-4500); Lymphocytes Percent Auto 28.7 % (25-40); Mean Corpuscular HGB Conc 32.8 % (30-36); Mean Corpuscular Hemoglobin 28.6 PG (26-34); Mean Corpuscular Volume 87.2 fL (80-100); Monocytes Absolute Auto 600 /uL (0-900); Monocytes Percent Auto 9.1 % (3-14); Neutrophils Absolute Auto 3900 /uL (1500-7000); Neutrophils Percent Auto 59.3 % (50-75); Platelet Count 273 X10^3/uL (150-400); Red Blood Cell Count 4.49 X10^6/uL (4.0-5.2); White Blood Cell Count 6.6 X10^3/uL (4.5-11.0)
[2023-07-30 13:27] LABS: BUN Creatinine Ratio 26.4 (6-22); Blood Urea Nitrogen 19 mg/dL (7-17); Calcium 9.4 mg/dL (8.4-10.2); Carbon Dioxide 34 mmol/L (22-32); Chloride 99 mmol/L (98-107); Estimated Glomerular Filt Rate > 60 mL/min (>60); Glucose 93 mg/dL (80-110); HEMOLYSIS < 15 (0-50); Potassium 4.1 mmol/L (3.4-5.1); Sodium 137 mmol/L (137-145)
[2023-07-30 19:09] LABS: Hemoglobin A1C% w Est Avg Glu 6.3 % (4.0-6.0)
== END ==
LOC: LAB 11:11
PROVIDERS: PCP Family Medicine; Referring Provider Orthopaedic Surgery Foot and Ankle Surgery; Visit Provider Orthopaedic Surgery Foot and Ankle Surgery
DX: Z01.818 Encounter for other preprocedural examination (principal); R73.9 Hyperglycemia, unspecified; Z01.812 Encounter for preprocedural laboratory examination
CPT/HCPCS: 36415; 80048; 83036; 85025; 93005

== ENCOUNTER 2023-09-02 07:21 | Day surgery (SDC) | payer MEDICARE, SELFPAY ==
[2022-01-07 09:43] VITALS: BMI 43.4
[2023-08-19 09:26] VITALS: BMI 42.8
[2023-09-02] VITALS (13 sets, daily range): BP systolic 111–169; BP diastolic 39–77; PULSE 51–76; RESP 13–22; TEMP 36.2–37.2; O2SAT 90–98; BMI 42.8
--- NOTE | 2023-09-02 06:00 | DI.RAD.S_ITS ---
PROCEDURE: XR KNEE LT 1TO2V INDICATIONS: TKA TECHNIQUE: 2 view(s) of the knee acquired. COMPARISON: [facility], , XR KNEE LT 3V, 06/03/2022, 14:41. FINDINGS: Bones: Patient is status post knee joint arthroplasty. Hardware components are in expected positions. Visualized bony structures are intact. Soft tissues: Overlying postoperative changes are noted. IMPRESSION: Expected post-operative appearance of a knee arthroplasty. Dictated by: Rigo Burger M.D. on 09/02/2023 at 12:42 Approved by: Rigo Burger M.D. on 09/02/2023 at 12:42
--- NOTE | 2023-09-02 08:18 | PM.PREOP ---
Pre-operative Note Interval Note History & Physical reviewed/Exam performed by Physician: Yes Changes to H&P: No
[2023-09-02] MEDS: LACTATED RINGERS 1,000 ML 42 ML IV ×2 (08:20→11:11)
--- NOTE | 2023-09-02 08:21 | PM.OP.1 ---
Operative Date/Time/Diagnoses Date of procedure: 09/02/23 Time of procedure: 09:20 Pre-op diagnosis: Left knee arthritis, obesity BMI 42 Post-op diagnosis: same Procedure & Clinicians Procedure: Total knee arthroplasty left knee. CPT code 12490 Same procedure as scheduled: Yes Indications: The patient has significant pain associated with osteoarthritis of the left knee. It is associated with morning stiffness. Pain interferes with daily normal function including ambulation standing and any activities that are weight-bearing. It interferes with sleep. There is crepitation with range of motion. There is marked joint line tenderness. X-rays show significant levels of osteoarthritis. Double attempted previous conservative treatment has been rendered. The patient has failed exercise program, medications and previous injections. Patient is indicated for total knee arthroplasty. The risks and benefits of the procedure have been discussed with the patient and given the opportunity to ask questions. The risks of surgery include but are not limited to infection, fracture, malunion, nonunion, persistence of pain, damage to nerves and blood vessels, DVT, PE, cardiopulmonary complications and . The patient expressed a thorough understanding of the risks and benefits of surgery and has elected to proceed. Consent was signed. During the operation, the services of a physician surgical services coordinator were medically indicated and necessary to provide the exposure of the operative site for the surgical procedure and to maintain the limb in a proper position to carry out the operation safely and efficiently. Without a qualified administration assistant being present this would extended the operative procedure and made the procedure technically more difficult to perform. Surgeon: Maria C Amado Milking Worker: Jose Tomlinson Anesthesia Type: General, Peripheral nerve block and Local (Two hundred sixty-six mg, 20 cc of Exparel) Operative Notes Findings: Tricompartmental varus pattern arthritis left knee full-thickness cartilage loss. Patient was noted to have very scarred wound bed and the adherent patellar tendon, meticulous dissection was completed in order to expose the lateral compartment due to the adherent scarred patella tendon. Closure Type: primary Specimen(s): none sent Prosthetic devices, grafts, tissues, transplants, or devices: D[employer] journey 2 bi CS Femur cobalt chromium size 3 left Tibia sized to Poly 10 mm Patella 29 x 7.5 mathieu II Estimated Blood Loss (mL): 50 Blood products transfused: none Tourniquet time (min): 100 Procedure in detail: Patient was seen in the preoperative area where the patient and site of surgery were identified in the operative knee was marked informed consent confirmed. This was the left knee. Patient received the appropriate preoperative antibiotics this was 2 g of Ancef. And other preoperative medications and was taken to the operating room placed on operating table in the supine position. Spinal anesthetic were administered. The operative extremity was then prepped and draped in the standard sterile fashion with a nonsterile tourniquet high on the thigh. Patient was placed on the green foam bolsters. A lateral post was placed at the level of the proximal thigh /trochanter area as a lateral post. Formal time-out procedure was performed confirming the patient's side and site of surgery and administration of appropriate preoperative antibiotics and implants were in the room accounted for. All were in agreement. Patient received a preoperative dose of tranexamic acid and then a 2nd dose at tourniquet release Patient was prepped and draped in the standard sterile fashion and the foot was placed into the leg esteves. This was taken into high flexion and the incision was marked out over the anterior knee to the level of the medial tubercle tubercle. The Esmarch was then used for exsanguination and the tourniquet was inflated to 250 mmHg. Was made through the skin and subcutaneous tissue in high flexion this was then brought down into 30? of flexion for the medial parapatellar arthrotomy. A marker pen was used to justine the arthrotomy site for later repair. Joint fluid was evacuated. The anterior osteophytes and soft tissues were removed. Routine medial release was initially made along the medial proximal tibia with Bovie. Note the patella tendon was very adherent and stiff making exposure of the lateral compartment and subluxation of the patella difficult. Meticulous dissection was taken around the patella tendon to remove adhesions and allow careful subluxation of the patella without disruption of the patella insertion. The patient had no previous history of surgeries. [place] that the scarred adherent wound bed is likely secondary to her severe arthritis and history of cancer treatment. The patella was 1st cut using the saw sized and prepped and then subluxed throughout the case and protected. The leg was then taken into extension and the patella was everted and the patella was cut to accommodate the patellar button. This was sized to a 29 mm button for a 7.5 mm thickness to recreate the original dimensions of the patella. Additional lateral patella was removed. Poly was removed and the protector replaced and the patella was subluxed and the knee was taken back up into flexion and attention was returned to the femur. Then the rotational landmarks of [place] line and the trans epicondylar axis were marked on the femur with electrocautery. ACL and PCL were released. Then the Cori robotic pins were placed into the femur and tibia and the race set up. Landmarks were established and the robotic planning was commenced. Plan was developed and improved and adjusted as necessary to create a balanced knee. Initial alignment was a 7 degree varus. Plan correction to 2 degree varus with balanced proximally 2 mm flexion and extension. 1 degree external rotation in the femur. And 1 degree of varus in the femur and tibia was placed for balancing. Plan was satisfactory the bur was used to remove the distal femur Then attention was turned to the tibia. The tibia tracker barba were applied and the tibia was cut. The extension block was used to check the alignment and this was grossly appropriate but slightly tight in extension so the bur was used to remove 1 more mm off the tibia and a clean-up cut. Then attention was turned back to the femur Then the 5 in 1 cutting block was applied complete the femur cuts. The trials were placed. This was a size 3 femur and a size 2 tibia. And the femoral notch was cut a standard fashion using Reamer then slap hammer. The knee was trialed and the checked. Knee was balanced in flexion extension. Range of motion 0-135 degrees was obtained. The rotation femoral trial was marked Bovie on the bone and checked with a long lilliana. Planned alignment for 2? of varus achieved alignment when degree of varus. Knee was balanced using the 10 mm poly in flexion and extension. Final implants were selected. The tibia was then finished with a drill and flange cut and then The trial implants were removed. Then in extension the posterior capsule was injected with a mixture of 40 mL of 0.25% Marcaine and 20 mL of Exparel care to avoid excessive injection posterior laterally. The remainder of this was saved for the capsule and subcutaneous tissue and placed during cement curing. The wound and bone was irrigated with pulsatile lavage. This was then dried with a sponge. The components were verified and opened and the cement was mixed. Cement was applied to the components and then to the bone then the tibia was cemented in place 1st followed by the femur then the patella. Excess cement was removed. With care looking around the back of the knee. Remainder of the injection was injected around the capsule. trial poly was placed back in the leg was placed into extension for the patellar cementing. After this was cured approximately 15 minutes later and the dilute Betadine solution was placed for at least 3 minutes in the wound this was then irrigated out and the final poly was placed. This was a 10 mm poly. The tourniquet was released hemostasis was achieved. Final 1g of tranexamic acid was given IV at the time of tourniquet release. There was lateral tilting of the patella which was anticipated based on the intraoperative testing. After the tourniquet was released. A lateral release was completed correcting patellar tracking symmetric within the groove. The capsule was closed with 1. Ethibond suture. Followed by a running Quill stitch. Subcutaneous layer was closed with 3-0 Vicryl suture. Skin was closed with a running V lock suture Stratafix Monocryl type suture and bri due to the patient's adhesive reactions. A dressing with Xeroform, gauze paper tape and An Bubba wrap was applied. Anesthetic was terminated the patient was woken from anesthesia and taken to recovery room in good condition. There no immediate complications from this procedure. The patient will be maintained on a standard total knee replacement protocol with weight-bearing as tolerated. Complications: none Post-operative Condition: stable Disposition: PACU Plan for aftercare: Weightbear as tolerated. Immediate range of motion. Work with physical therapy and occupational therapy. Planned discharge once medically stable and safe for home discharge likely postoperative day 1. We will use aspirin 81 mg b.i.d. for 6 weeks for DVT prophylaxis. We will follow up in 2 weeks for wound check. X-rays were taken
[2023-09-02] MEDS: CELECOXIB 200 MG CAPSULE 400 MG PO (08:22)
[2023-09-02] MEDS: ACETAMINOPHEN 325 MG TABLET 975 MG PO (08:23)
--- NOTE | 2023-09-02 08:55 | SUR.PREOP ---
Time out 840. Needle in 841. Block start time [0843] . Monitoring initiated and maintained throughout procedure. Oxygen and medications given per anesthesiologist instructions. Patient remained stable throughout procedure, no adverse reactions noted. Block end time [0853].
[2023-09-02] MEDS: CEFAZOLIN 2 GM/100 ML PREMIX 100 ML IV ×2 (09:11→17:32)
[2023-09-02] MEDS: TRANEXAMIC ACID 1,000 MG VIAL 1000 MG INJ ×2 (09:16→11:11)
--- NOTE | 2023-09-02 09:33 | SUR.OPER ---
Supine on padded OR bed. Pillow under head, arms secured on padded armboards <90 degree abduction. Safety belt across torso. Non-operative leg secured with tape over blanket over lower leg. Operative leg secured in knee/foam ladder positioner. Foam padded brace at thigh of operative leg. CONFIRMED BY DR. ANGELO.
[2023-09-02] MEDS: BUPIVACAINE LIPOSOME 266 MG/20 ML VIAL INJ (09:43)
[2023-09-02] MEDS: BUPIVACAINE 0.25% (PF) 30 ML, EPINEPHrine 0.15 MG INJ (09:49)
[2023-09-02] MEDS: ALBUTEROL 2.5 MG/3 ML NEB (ADULT) INH (12:08)
[2023-09-02] MEDS: OXYCODONE IR 5 MG TABLET PO ×2 (12:11→18:32)
[2023-09-02] MEDS: LACTATED RINGERS 1,000 ML 100 ML IV ×2 (13:55→18:30)
[2023-09-02] MEDS: IBUPROFEN 400 MG TABLET PO ×2 (13:55→20:42)
[2023-09-02] MEDS: ACETAMINOPHEN 325 MG TABLET 650 MG PO ×2 (13:56→18:30)
--- NOTE | 2023-09-02 15:00 | PT.IIE ---
Current Diagnoses Unilateral primary osteoarthritis, left knee (09/02/23) Surgery Performed Operation Date: 09/02/23 08:45 Actual Procedures p Left Total Knee Arthroplasty with Robot(Left) - Maria C Amado MD Surgical History (Last Updated 08/19/23 @ 10:54 by Janny Brower, RN) History of gynecologic surgery (05/26/14) History of gynecologic surgery (09/24/15) History of hip replacement (~2005) History of hip replacement (~2005) History of surgery (10/2015) History of tonsillectomy Hx of bilateral cataract extraction Hx of cataract surgery Hx of partial thyroidectomy Status post delivery Status post delivery Status post surgery (09/24/15) Medical History (Last Updated 08/19/23 @ 10:26 by Janny Brower RN) Anesthesia complication Arthritis Easy bruisability Endometrial cancer Hearing impaired History of revision of total replacement of right hip joint Left knee DJD Lower urinary tract symptoms (LUTS) Malignant neoplasm of endometrium (10/30/15) Morbid obesity with body mass index (BMI) of 40.0 to 49.9 (~10/30/15) Neuropathy Neuropathy Obstructive sleep apnea syndrome (10/30/15) Postmenopausal atrophic vaginitis Shortness of breath on exertion Vitamin B12 deficiency Physical Therapy Inpatient Evaluation/Re-Eval M1 PT/OT-IP Prior Functional Status Start: 09/02/23 16:14 Freq: NEEDED Status: Active Protocol: Document 09/02/23 15:00 AB (Rec: 09/02/23 16:33 AB [id number]) Medical Review Prior Functional Status Medical History Reviewed Yes Communication able to make needs known Mobility and Gait pt stated that she was modified independent with all mobilities and ambulation using a 4WW; uses a SPC for stair climbing Social History Household Members spouse Living Arrangements House Number of Floors (Floors) Two Floors Number of Stairs To Enter/Railing? pt stays on main level of the house has a ramp to enter the house: needs to walk ~ 30 ft to get into the house Home Environment High Toilet,Walk in Shower, Ramp Home Equipment Front Wheel Walker,Four Wheel Walker,Straight Cane,Shower Seat without Backrest,Hand Held Shower,Grab Bars In Shower Additional Social History Comment pt has a recliner chair at home M2 PT-IP Current Condition Start: 09/02/23 16:14 Freq: NEEDED Status: Active Protocol: Document 09/02/23 15:00 AB (Rec: 09/02/23 16:33 AB [id number]) Physical Therapy Current Condition Current Condition Evaluation Date 09/02/23 Treatment Diagnosis s/p L TKA; difficulty in walking Onset Date 09/02/23 M3 PT-IP Subjective Start: 09/02/23 16:14 Freq: NEEDED Status: Active Protocol: Document 09/02/23 15:00 AB (Rec: 09/02/23 16:33 AB [id number]) Subjective Physical Therapy Visit Type Type Initial Evaluation Visit Start Time 15:00 Visit Stop Time 16:12 Physical Therapy Visit Comments Patient Comments agreeable to do PT Therapy Pain Assessment Pain When Pain Assessed At Rest Pain Present Pain Present Pain Reported Location Left Knee Intensity 4 Scale Used increases to 6/10 with movement Pain Behaviors Guarding,Holding Area Pain Management Techniques Apply Cold,Distraction, Elevation,Modification of Treatment,Re-positioning, Timing of Activity with Medications M4 PT-IP Mobility and Gait Start: 09/02/23 16:14 Freq: NEEDED Status: Active Protocol: Document 09/02/23 15:00 AB (Rec: 09/02/23 16:33 AB [id number]) PT-Bed Mobility Assessment Supine to Sit Supine to Sit Maximum Assistance Sit to Supine Sit to Supine Minimal Assistance PT-Transfer Assessment Sit to and From Stand Sit to and from Stand Maximum Assistance,1 Person Assistance,2 Person Assistance ,Use of Upper Extremities Equipment Transfer Assistive Device Gait Belt,Front Wheeled Walker Orthotic/Prosthetic Devices or Brace: No Comments Mobility Comments pt supine in bed and family in room. obtained PLOF and home set up from pt and family. post-op folder provided and reviewed contents with pt. HEP also reviewed with pt and spouse. BP in supine: 141/41. O2 sat with 3.5 L/min: 98%. O2 at room air: 91-93%%. O2 put back on at 2L/min: sat increased to 94%. pt completed supine to sit max A and max cues. pt tends to hold her breath when moving. pt able to sit on EOB SBA. BP with initial sittin/64. pt sat for a few more minutes. BP checked again: 141/60. O2 sat 92-94% . O2 increased to 3L/min prior to standing. pt completed sit to stand max A x 1-2 and max cues. pt with increase trunk flexion in standing. (+) B knee buckling cued to quads activation and upright posture . pt sat back on EOB. rested and cued for deep breathing. completed sit to stand again requiring max A 1-2 and max cues and able to stand with max A using FWW for support but unable to transfer to chair and pt needing to sit back on EOB. pt stated that she is tired. requested to lay back in bed. pt able to scoot towards HOB max A and max cues. completed sit to supine min A and cues for LE elevation. positioned pt in bed. call light and table placed within reach. set up caregiver training with spouse for tomorrow at 9 am. Gait Assessment Comments Gait Comments unable at this time PT-Balance Assessment Sitting Balance and Reactions Static Sitting Balance Ability Good Dynamic Sitting Balance Ability Good Standing Balance and Reactions Static Standing Balance Ability Poor Dynamic Standing Balance Ability Poor Device Used FWW M5 PT-IP Objective Assessments Start: 09/02/23 16:14 Freq: NEEDED Status: Active Protocol: Document 09/02/23 15:00 AB (Rec: 09/02/23 16:33 AB [id number]) Orientation Orientation/Cognition Level of Alertness Alert Orientation Name,Place,Situation Language Function Ability Hard of Hearing Safety Awareness Decreased Safety Awareness Memory Description Short Term Impaired Gross Range of Motion Lower Extremity ROM Assessment Left Impaired Impairments L knee flexion: ~ 50 deg L knee extension: ~ 20 deg less to 0 Strength Lower Extremity Strength Assessment Bilaterally Impaired Comments Strength Comments LLE: 3+/5 RLE: hip/knee 4-/5 ankle: 2-/ 5: pt with R foot drop. pt stated that she had previous hip surgery and had foot drop afterwards and has not fully recovered. Muscle Tone Muscle Tone WNL Yes M6 PT-IP Treatment Start: 09/02/23 16:14 Freq: NEEDED Status: Active Protocol: Document 09/02/23 15:00 AB (Rec: 09/02/23 16:33 AB [id number]) Physical Therapy Treatment Exercises Exercises Heel Slides Education Education Provided Precautions,Weight Bearing Status,Post-Op Packet,Safety M7 PT-IP Assessment and Plan Start: 09/02/23 16:14 Freq: NEEDED Status: Active Protocol: Document 09/02/23 15:00 AB (Rec: 09/02/23 16:33 AB [id number]) PT Summary Assessment and Plan Potential Rehabilitation Potential Fair Status of Condition at Evaluation Evolving Summary Impairments Pain,ROM,Strength,Balance, Coordination,Sensation,Tone, Cognition,Bed Mobility, Transfers,Gait,Activity Tolerance Assessment Summary pt is an 82 y/o F s/p L TKA POD 0. pt is WBAT on LLE. pt requiring max A x 1-2 for sit to stand and unable to step and transfer at this time with (+) B knee buckling. Pt just had surgery today and will likely progress during hospital stay. caregiver training set up for tomorrow at ~ 9am with spouse. will continue to assess progress. Goals Bed Mobility Goal Independent Transfer Goal Independent,Front Wheeled Walker Gait Goal Independent,Front Wheel Walker Gait Distance 150 Other Goals improve transfers and ambulation using LRAD ~ 200 ft mod I Days to Meet Goals 5 Frequency of Treatment Frequency Of Treatment Twice a Day Treatment Plan Physical Therapy Treatment Plan Bed Mobility Training,Transfer Training,Gait Training, Therapeutic Exercise,Balance Retraining,Post Op Education, Discharge Planning,Hot or Cold Pack,Neuromuscular Re-ed, Coordination Retraining,Manual Therapy Weight Bearing Status Weight Bearing Status Weight Bear as Tolerated Allowed Weight Bearing Amount (enter % LLE WBAT or #) (%) Recommendations To Nursing Amount of Assist Needed PT/OT Assist Only Discharge Recommendations PT Discharge Recommendations Home with 24/11 Assist Available,Home Health,SNF Rehab,Home vs SNF Transportation Needs at Discharge Private Vehicle,Wheelchair/ Cabulance
--- NOTE | 2023-09-02 16:15 | OT.IP.EVAL ---
Current Diagnoses Unilateral primary osteoarthritis, left knee (09/02/23) Surgery Performed Operation Date: 09/02/23 08:45 Actual Procedures p Left Total Knee Arthroplasty with Robot(Left) - Maria C Amado MD Past Medical History (Last Updated 08/19/23 @ 10:26 by Janny Brower, RN) Anesthesia complication Arthritis Easy bruisability Endometrial cancer Hearing impaired History of revision of total replacement of right hip joint Left knee DJD Lower urinary tract symptoms (LUTS) Malignant neoplasm of endometrium (10/30/15) Morbid obesity with body mass index (BMI) of 40.0 to 49.9 (~10/30/15) Neuropathy Neuropathy Obstructive sleep apnea syndrome (10/30/15) Postmenopausal atrophic vaginitis Shortness of breath on exertion Vitamin B12 deficiency Surgical History (Last Updated 08/19/23 @ 10:54 by Janny Brower RN) History of gynecologic surgery (05/26/14) History of gynecologic surgery (09/24/15) History of hip replacement (~2005) History of hip replacement (~2005) History of surgery (10/2015) History of tonsillectomy Hx of bilateral cataract extraction Hx of cataract surgery Hx of partial thyroidectomy Status post delivery Status post delivery Status post surgery (09/24/15) Occupational Therapy Inpatient Evaluation/Re-Eval M1 PT/OT-IP Prior Functional Status Start: 09/02/23 16:51 Freq: NEEDED Status: Active Protocol: Document 09/02/23 16:52 [facility] (Rec: 09/02/23 17:16 [facility] [id number]) Medical Review Prior Functional Status Medical History Reviewed Yes Communication able to make needs known Mobility and Gait pt stated that she was modified independent with all mobilities and ambulation using a 4WW; uses a SPC for stair climbing Activities of Daily Living and IADL's Pt states able to do all ADLs. Social History Household Members spouse Living Arrangements House Number of Floors (Floors) Two Floors Number of Stairs To Enter/Railing? pt stays on main level of the house has a ramp to enter the house: needs to walk ~ 30 ft to get into the house Home Environment High Toilet,Walk in Shower, Ramp Home Equipment Front Wheel Walker,Four Wheel Walker,Straight Cane,Shower Seat without Backrest,Hand Held Shower,Grab Bars In Shower Additional Social History Comment pt has a recliner chair at home M2 OT-IP Current Condition Start: 09/02/23 16:51 Freq: Status: Active Protocol: Document 09/02/23 16:52 [facility] (Rec: 09/02/23 17:16 [facility] [id number]) Occupational Therapy Current Condition Current Condition Evaluation Date 09/02/23 Treatment Diagnosis S/P L TKA Diagnosis Onset Date 09/02/23 M3 OT- IP Subjective and Pain Start: 09/02/23 16:51 Freq: Status: Active Protocol: Document 09/02/23 16:52 [facility] (Rec: 09/02/23 17:16 [facility] [id number]) OT- Subjective Occupational Therapy Visit Type Type Initial Evaluation Visit Start Time 15:00 Visit Stop Time 16:15 Occupational Therapy Visit Comments Patient Comments Pt agreed to get up, PT and her present. Patient/Caregiver Goals To go home. OT Pain Assessment Pain When Pain Assessed At Rest Pain Present Pain Present Pain Reported Location Left Knee Intensity 4 M4 OT- IP ADL's Start: 09/02/23 16:51 Freq: Status: Active Protocol: Document 09/02/23 16:52 [facility] (Rec: 09/02/23 17:16 [facility] [id number]) OT [id number] Comments OT Self-Feeding Comments Not at mealtime, pt having no issues to drink from her water bottle. OT ADL-Grooming Comments OT Grooming Comments Not performed. OT ADL-Oral Care Comments Oral Care Comments Not performed. OT ADL-Dressing General Eval Lower Body Dressing Ability Maximum Assistance Comments OT Dressing Comments Pt states has a dietitian chief and sock aid at home. OT ADL-Toileting General Evaluation Toileting Ability Total Assistance Comments OT Toileting Comments Pt had purewick in. OT ADL-Bathing Comments OT Bathing Comments Not performed. M5 OT- IP IADL's Start: 09/02/23 16:51 Freq: Status: Active Protocol: Document 09/02/23 16:52 [facility] (Rec: 09/02/23 17:16 [facility] [id number]) OT-Instrumental Activities of Daily Living Home Safety Awareness Home Safety Comments Pt a bit groggy and will benefit from assist at this time. Meal Preparation Meal Preparation Caregiver Provides Assist Telecommunications Clerk Telecommunications Clerk Caregiver Provides Assist M6 OT- IP Functional Cognition Start: 09/02/23 16:51 Freq: Status: Active Protocol: Document 09/02/23 16:52 [facility] (Rec: 09/02/23 17:16 [facility] [id number]) Cognitive Factors Limiting Selfcare Function Cognitive Ability Level of Alertness Drowsy Patient Orientation Name,Place,Situation Attention Span Ability Capable of Focused Attention, Capable of Sustained Attention Ability to Follow Commands Able to Follow One Step Commands with Increased Time, Able to Follow One Step Commands with Repetition Cognitive Comments Cognitive Assessment Comments Pt able to follow commands for mobility needs, but a little groggy and needing vc for safety. OT- Vision and Hearing OT- Hearing Assessment OT- Hearing Assessment Hearing Impaired,Use of Hearing Aids OT- Vision Assessment Visual Acuity Glasses All The Time M7 OT- IP Mobility and Balance Start: 09/02/23 16:51 Freq: Status: Active Protocol: Document 09/02/23 16:52 [facility] (Rec: 09/02/23 17:16 [facility] [id number]) OT- Bed Mobility Assessment Supine to Sit Supine to Sit Assist Maximum Assistance,1 Person Assistance Sit to Supine Sit to Supine Assist Minimal Assistance,1 Person Assistance OT-Transfer Assessment Sit to and From Stand Sit to and from Stand Maximum Assistance,1 Person Assistance,2 Person Assistance ,Use of Upper Extremities Comments Mobility Comments MAX A x1 to assist with her leg and back. MAX XA 1-2 to stand and noted RLE buckling and pt heavily leans on the FWW. Pt on o2 drops when on RA and 2L , pt tends to take shallow breaths and needing reminders to take deep breath. At the end of the session increased O2 back to 3.5L and at 97%. OT- Balance Assessment Sitting Balance and Reactions Static Sitting Balance Ability Good Dynamic Sitting Balance Ability Fair Standing Balance and Reactions Static Standing Balance Ability Poor Dynamic Standing Balance Ability Poor M8 OT- IP Objective Assessments Start: 09/02/23 16:51 Freq: Status: Active Protocol: Document 09/02/23 16:52 [facility] (Rec: 09/02/23 17:16 [facility] [id number]) OT Gross Range of Motion Upper Extremity Range of Motion Assessment Within Functional Limits OT Strength Upper Extremity Strength Assessment Left Impaired Comments Strength Comments Pt had a fall prior to this surgery and has a sore LUE. M9 OT- IP Assessment and Plan Start: 09/02/23 16:51 Freq: Status: Active Protocol: Document 09/02/23 16:52 [facility] (Rec: 09/02/23 17:16 [facility] [id number]) OT Summary Assessment and Plan Potential Rehabilitation Potential Good Analytic Complexity at Evaluation Low Summary OT Impairments Pain,Strength,Balance, Functional Cognition, Functional Mobility,Self- Feeding,Grooming,Dressing, Toileting,Bathing,Toilet Transfers,Shower Transfers, Activity Tolerance Progress Towards Goals Slow Progress due to Pain,Slow Progress due to Activity Tolerance Assessment Summary Pt Low complexity and main barriers are pain, needing extensive 2 person to stand at this time as her right knee is also buckling at this time. Pt's to come for caregiver training tomorrow and hopeful for pt to be able to go home. At this current status, pt may need skilled rehab to be determined pending her progress and caregiver training tomorrow at 9AM. Goals Self-Feeding Goal Independent Grooming Goal Independent Dressing Goal Minimal Assistance Toileting Goal Minimal Assistance Bathing Goal Minimal Assistance Toilet Transfer Goal Standby Assistance Shower Transfer Goal Minimal Assistance Days to Meet Goals 15 Frequency of Treatment Frequency Of Treatment Once a Day Treatment Plan OT Treatment Plan ADL Training,Functional Mobility,Patient/Family Education,Discharge Planning Other Treatment Recommendations and Next Transfer to [facility] [place] with MODA X 2 Treatment Focus with FWW. Discharge Recommendations OT Discharge Recommendations Home with 24/11 Assist Available,Home Health,SNF Rehab,Outpatient PT,Home vs SNF Home Equipment Needs [facility] [place] Transportation Needs at Discharge Wheelchair/Cabulance
[2023-09-02] MEDS: ASPIRIN EC 81 MG TABLET PO (20:42)
[2023-09-02] MEDS: DOCUSATE 100 MG CAPSULE PO (20:42)
[2023-09-03] MEDS: ACETAMINOPHEN 325 MG TABLET 650 MG PO ×2 (01:24→05:36)
[2023-09-03] MEDS: OXYCODONE IR 5 MG TABLET PO ×3 (01:25→11:28)
[2023-09-03] MEDS: CEFAZOLIN 2 GM/100 ML PREMIX 100 ML IV (01:25)
[2023-09-03] MEDS: IBUPROFEN 400 MG TABLET PO ×3 (01:25→08:10)
[2023-09-03 05:53] LABS: Hematocrit 32.2 % (36-46); Hemoglobin 10.7 g/dL (12.0-16.0)
[2023-09-03] MEDS: ASPIRIN EC 81 MG TABLET PO (08:05)
[2023-09-03] MEDS: DOCUSATE 100 MG CAPSULE PO (08:06)
[2023-09-03] MEDS: polyethylene glycoL 3350 17 GM POWD.PACK PO (08:06)
[2023-09-03] MEDS: MULTIVITAMIN 1 TABLET 1 TAB PO (08:10)
[2023-09-03] MEDS: FUROSEMIDE 40 MG TABLET PO (08:10)
[2023-09-03] MEDS: ATORVASTATIN 20 MG TABLET 40 MG PO (08:10)
[2023-09-03] MEDS: VALSARTAN 80 MG TABLET 320 MG PO (08:11)
--- NOTE | 2023-09-03 09:20 | PT.IPTN ---
Current Diagnoses Unilateral primary osteoarthritis, left knee (09/02/23) Surgery Performed Operation Date: 09/02/23 08:45 Actual Procedures p Left Total Knee Arthroplasty with Robot(Left) - Maria C Amado MD Physical Therapy Treatment Note M2 PT-IP Current Condition Start: 09/02/23 16:14 Freq: NEEDED Status: Active Protocol: Document 09/02/23 15:00 [facility] (Rec: 09/02/23 16:33 [facility] [id number]) Physical Therapy Current Condition Current Condition Evaluation Date 09/02/23 Treatment Diagnosis s/p L TKA; difficulty in walking Onset Date 09/02/23 M3 PT-IP Subjective Start: 09/02/23 16:14 Freq: NEEDED Status: Active Protocol: Document 09/03/23 10:40 [facility] (Rec: 09/03/23 10:54 TS [id number]) Subjective Physical Therapy Visit Type Type Treatment Note Visit Start Time 09:20 Visit Stop Time 09:50 Number of ADOBE LAYER Visits 1 Physical Therapy Visit Comments Patient Comments Pt found resting in bed, reports she feels better this morning, is agreeable to PT. Therapy Pain Assessment Pain When Pain Assessed At Rest Pain Present Pain Present Pain Reported M4 PT-IP Mobility and Gait Start: 09/02/23 16:14 Freq: NEEDED Status: Active Protocol: Document 09/03/23 10:40 [facility] (Rec: 09/03/23 10:54 TS [id number]) PT-Bed Mobility Assessment Supine to Sit Supine to Sit Standby Assistance,Head of Bed Elevated,Bedrails Scooting Scooting to Edge of Bed Standby Assistance PT-Transfer Assessment Sit to and From Stand Sit to and from Stand Contact Guard Assistance,1 Person Assistance,Use of Upper Extremities Equipment Transfer Assistive Device Gait Belt,Front Wheeled Walker Orthotic/Prosthetic Devices or Brace: No Comments Mobility Comments Supine to sit SBA for uprighting trunk with HOB elevated 45D. She sat EOB, spouse donned gait belt. STS from bed CGA from spouse with use of FWW. Pt ambulated ~30' SBA with use of FWW and slow step to gait. She reported some SOB, Spo2 91% on RA, pt was cued for PLB. Pt ambulated back to chair, performed heel slides, quad sets and glute sets. pt was educated on intensity and frequency of post-op ex. Pt was left in chair, all needs met, RN notified. Gait Assessment Gait Gait Assistance Required: Standby Assistance Distance (Feet) 30 Assistive Devices Assistive Device Front Wheeled Walker Orthotic/Prosthetic Devices or Brace: No Gait Deviations General Gait Pattern Antalgic,Decreased Stride Length,Decreased Feet Clearance,Step-to Gait Factors Limiting Gait Function Factors Limiting Gait Function Decreased Activity Tolerance, Decreased Strength,Pain,Poor Balance,Respiratory Distress Comments Gait Comments See mobility comments PT-Balance Assessment Sitting Balance and Reactions Static Sitting Balance Ability Good Dynamic Sitting Balance Ability Good Standing Balance and Reactions Static Standing Balance Ability Fair Dynamic Standing Balance Ability Fair Device Used FWW M5 PT-IP Objective Assessments Start: 09/02/23 16:14 Freq: NEEDED Status: Active Protocol: Document 09/02/23 15:00 [facility] (Rec: 09/02/23 16:33 [facility] [id number]) Orientation Orientation/Cognition Level of Alertness Alert Orientation Name,Place,Situation Language Function Ability Hard of Hearing Safety Awareness Decreased Safety Awareness Memory Description Short Term Impaired Gross Range of Motion Lower Extremity ROM Assessment Left Impaired Impairments L knee flexion: ~ 50 deg L knee extension: ~ 20 deg less to 0 Strength Lower Extremity Strength Assessment Bilaterally Impaired Comments Strength Comments LLE: 3+/5 RLE: hip/knee 4-/5 ankle: 2-/ 5: pt with R foot drop. pt stated that she had previous hip surgery and had foot drop afterwards and has not fully recovered. Muscle Tone Muscle Tone WNL Yes M6 PT-IP Treatment Start: 09/02/23 16:14 Freq: NEEDED Status: Active Protocol: Document 09/03/23 10:40 TS (Rec: 09/03/23 10:54 TS [id number]) Physical Therapy Treatment Exercises Exercises Gluteal Sets,Quad Sets,Heel Slides Education Education Provided Precautions,Weight Bearing Status,Post-Op Packet,Safety M7 PT-IP Assessment and Plan Start: 09/02/23 16:14 Freq: NEEDED Status: Active Protocol: Document 09/03/23 10:40 TS (Rec: 09/03/23 10:54 TS [id number]) PT Summary Assessment and Plan Potential Rehabilitation Potential Fair Summary Impairments Pain,ROM,Strength,Balance, Coordination,Sensation,Tone, Cognition,Bed Mobility, Transfers,Gait,Activity Tolerance Progress Towards Goals Progressing Toward Goals Assessment Summary Fany is making good progress with her mobility. She is SBA for bed mobility with HOB elevated. She progressed her gait to ~30'SBA with FWW. She had some SOB, Spo2 91% on RA with mobility and 93% at rest. Spouse was instructed in and performed donning of gait belt , bed mobility and gait training. PT is recommending pt return home with 24/7 assist and outpatient PT. Goals Bed Mobility Goal Independent Transfer Goal Independent,Front Wheeled Walker Gait Goal Independent,Front Wheel Walker Gait Distance 150 Other Goals improve transfers and ambulation using LRAD ~ 200 ft mod I Days to Meet Goals 5 Frequency of Treatment Frequency Of Treatment Twice a Day Treatment Plan Physical Therapy Treatment Plan Bed Mobility Training,Transfer Training,Gait Training, Therapeutic Exercise,Balance Retraining,Post Op Education, Discharge Planning,Hot or Cold Pack,Neuromuscular Re-ed, Coordination Retraining,Manual Therapy Weight Bearing Status Weight Bearing Status Weight Bear as Tolerated Allowed Weight Bearing Amount (enter % LLE WBAT or #) (%) Recommendations To Nursing Amount of Assist Needed 1 Person Assist Discharge Recommendations PT Discharge Recommendations Home with 24/7 Assist Available,Outpatient PT Transportation Needs at Discharge Private Vehicle
--- NOTE | 2023-09-03 10:10 | OT.IP.TRT ---
Current Diagnoses Unilateral primary osteoarthritis, left knee (09/02/23) Surgery Performed Operation Date: 09/02/23 08:45 Actual Procedures p Left Total Knee Arthroplasty with Robot(Left) - Maria C Amado MD Occupational Therapy Treatment Note M2 OT-IP Current Condition Start: 09/02/23 16:51 Freq: Status: Active Protocol: Document 09/02/23 16:52 [facility] (Rec: 09/02/23 17:16 [facility] [id number]) Occupational Therapy Current Condition Current Condition Evaluation Date 09/02/23 Treatment Diagnosis S/P L TKA Diagnosis Onset Date 09/02/23 M3 OT- IP Subjective and Pain Start: 09/02/23 16:51 Freq: Status: Active Protocol: Document 09/03/23 10:33 [facility] (Rec: 09/03/23 10:44 [facility] [id number]) OT- Subjective Occupational Therapy Visit Type Type Treatment Note Visit Start Time 10:05 Visit Stop Time 10:30 Occupational Therapy Visit Comments Patient Comments Pt agreed to get dressed. Patient/Caregiver Goals To go home. OT Pain Assessment Pain When Pain Assessed During Mobility Pain Present Pain Present Pain Reported M4 OT- IP ADL's Start: 09/02/23 16:51 Freq: Status: Active Protocol: Document 09/03/23 10:33 [facility] (Rec: 09/03/23 10:44 [facility] [id number]) OT [id number] General Evaluation Self-Feeding Ability Independent OT ADL-Grooming Comments OT Grooming Comments Not performed. OT ADL-Oral Care Comments Oral Care Comments Not performed. OT ADL-Dressing General Eval Upper Body Dressing Ability Minimal Assistance Lower Body Dressing Ability Maximum Assistance Comments OT Dressing Comments Pt educated to dress the LLE first and take out last. Also to put her underwear on and then pants and then stand. Pt states her will assist her at home. Educated pt to communate with her well, For example,let assist with her balance while she is able to do her dressing needs. OT ADL-Toileting Comments OT Toileting Comments Pt having to wear a pad. Pt will still benefit from getting a BSC for home use. OT ADL-Bathing Comments OT Bathing Comments Not performed. M6 OT- IP Functional Cognition Start: 09/02/23 16:51 Freq: Status: Active Protocol: Document 09/03/23 10:33 [facility] (Rec: 09/03/23 10:44 [facility] [id number]) Cognitive Factors Limiting Selfcare Function Cognitive Ability Level of Alertness Alert Cognitive Comments Cognitive Assessment Comments Pt much more alert today. M7 OT- IP Mobility and Balance Start: 09/02/23 16:51 Freq: Status: Active Protocol: Document 09/03/23 10:33 [facility] (Rec: 09/03/23 10:44 [facility] [id number]) OT-Transfer Assessment Sit to and From Stand Sit to and from Stand Minimal Assistance Comments Mobility Comments ALBERTO to stand with FWW for dressing needs. Suggested pt to continue to use the FWW initially as she is very heavy handed on the FWW and have the 4ww parked [address] from the car to the front door just in case pt having to rest during her 30ft walk to get into the car. Spoke of car transfer with the pt and her . OT- Balance Assessment Sitting Balance and Reactions Static Sitting Balance Ability Good Dynamic Sitting Balance Ability Good Standing Balance and Reactions Static Standing Balance Ability Fair Dynamic Standing Balance Ability Fair M8 OT- IP Objective Assessments Start: 09/02/23 16:51 Freq: Status: Active Protocol: Document 09/02/23 16:52 [facility] (Rec: 09/02/23 17:16 [facility] [id number]) OT Gross Range of Motion Upper Extremity Range of Motion Assessment Within Functional Limits OT Strength Upper Extremity Strength Assessment Left Impaired Comments Strength Comments Pt had a fall prior to this surgery and has a sore LUE. M9 OT- IP Assessment and Plan Start: 09/02/23 16:51 Freq: Status: Active Protocol: Document 09/03/23 10:33 [facility] (Rec: 09/03/23 10:44 [facility] [id number]) OT Summary Assessment and Plan Potential Rehabilitation Potential Good Analytic Complexity at Evaluation Low Summary OT Impairments Pain,Strength,Balance, Functional Cognition, Functional Mobility,Self- Feeding,Grooming,Dressing, Toileting,Bathing,Toilet Transfers,Shower Transfers, Activity Tolerance Progress Towards Goals Progressing Toward Goals,Slow Progress due to Activity Tolerance Assessment Summary Pt doing much better and now just needing one person assist for needs. Pt going home today with her to assist. Pt to have outpt PT. Goals Self-Feeding Goal Independent Grooming Goal Independent Dressing Goal Minimal Assistance Toileting Goal Minimal Assistance Bathing Goal Minimal Assistance Toilet Transfer Goal Standby Assistance Shower Transfer Goal Minimal Assistance Days to Meet Goals 7 Frequency of Treatment Frequency Of Treatment Once a Day Treatment Plan OT Treatment Plan ADL Training,Functional Mobility,Patient/Family Education,Discharge Planning Discharge Recommendations OT Discharge Recommendations Home with 24/11 Assist Available,Outpatient PT Home Equipment Needs [facility] [place] Needs at Discharge Private Vehicle
--- NOTE | 2023-09-03 10:12 | P.DS_ITS ---
History of Present Illness History of Present Illness Chief complaint: Left TKA *OPB* Narrative: Fany is a pleasant 82 year old female who is POD#1 s/p left TKA by Dr. Amado. Overall reports she is doing well, pain is mild-moderate and well controlled with oral Oxycodone. Patient report she has not yet worked with PT but has been up to urinate several times using a walker. No issues voiding. Has post-op PT appts set up already, has walker, ramp and handle bars at home already. Lives at home with who is willing and able to aid in patients post-op care. Post-op medications were picked up already. Denies fever, chills, chest pain, SOB, nausea, vomiting. Discharge Providers Provider Discharge Date: 09/03/23 Primary care physician: Abby Presley DO Consults: 09/02/23 12:36 Consult to Discharge Planning Routine Comment: Consult to Occupational Therapy Evaluate & Treat Comment: Physician Instructions: Evaluate and treat Consult to Physical Therapy Evaluate & Treat Comment: Physician Instructions: postop TKA protocol Discharge provider: Nallely Singh PA-C Summary Hospital Course Discharge Diagnosis: left knee oa s/p left tka Hospital Course: Uncomplicated hospital course. Exam Vital Signs (past 8 hours): Oxygen Delivery Method Nasal Cannula Oxygen Flow Rate 3.5 Narrative Exam Narrative: Lying comfortably in bed during our interview today. Resp Effort & Inspection: normal respiratory effort and able to speak in complete sentences Cardio Rate: regular rate Other: Extremities appear well perfused, brisk capillary refill, pulses intact. Skin Other: Gauze and paper tape dressing in place over the left anterior knee, mild bloody discharge around the middle of the incision site. Neuro Other: Generalized slightly decreased sensation throughout bilateral lower extremities extending up into the lower legs, not new or worsened since surgery. Extrem Other: Calves soft and non-tender bilaterally. SCDs on and functioning. 5/5 strength with DF, PF, EHL bilaterally. Objective Labs 09/03/23 05:15 Labs: Laboratory Results - last 24 hr 09/03/23 05:15 Hgb 10.7 L Hct 32.2 L PFSH Medical History (Updated 08/19/23 @ 10:26 by Janny Brower RN) Anesthesia complication Easy bruisability History of revision of total replacement of right hip joint Endometrial cancer Hearing impaired Neuropathy Lower urinary tract symptoms (LUTS) Left knee DJD Vitamin B12 deficiency Morbid obesity with body mass index (BMI) of 40.0 to 49.9 (~10/30/15) Shortness of breath on exertion Neuropathy Postmenopausal atrophic vaginitis Arthritis Obstructive sleep apnea syndrome (10/30/15) Malignant neoplasm of endometrium (10/30/15) Surgical History (Updated 08/19/23 @ 10:54 by Janny Brower RN) History of gynecologic surgery (09/24/15) History of gynecologic surgery (05/26/14) History of surgery (10/2015) Hx of partial thyroidectomy Hx of bilateral cataract extraction Hx of cataract surgery Status post surgery (09/24/15) History of hip replacement (~2005) History of hip replacement (~2005) Status post delivery Status post delivery History of tonsillectomy Family History Daughter Cancer Father Cerebrovascular accident (stroke) Hypertension Social History marital status: number of children: 2 household members: spouse Smoking Status: Never smoker alcohol intake: current Discharge Assessment & Plan Assessment and Plan Assessment: Stable s/p left TKA Plan of Treatment: 1) Plan to discharge to home today with 2) Continue multimodal pain management with ice to the knee for additional pain control. Patient has post-op medications at home already. 3) ASA b.i.d. for DVT prophylaxis. 4) Start outpatient physical therapy to work on range of motion and mobility. Weight bearing as tolerated. 5) Keep dressing intact, clean, dry until 2 week postop appointment. If the gauze becomes saturated or wet okay to remove and replace with clean and dry gauze or call our office for a replacment dressing. No soaking the incision site in pools or tubs. No topical ointments or creams to the incision site. 5) Follow up at [facility] in 2 weeks for a postop appointment and wound check. All patient's questions were answered, she demonstrates understanding and is in agreement with the plan. Call our office if any questions or concerns arise. Discharge Plan Discharge Plan Patient Disposition: Home Discharge orders & Medications Discharge Orders: Discharge (Order); Ordered 09/03/23 Ordered By: Nallely Singh Prescriptions: New acetaminophen 325 mg Tablet 650 mg PO Q6H Qty: 90 0RF ibuprofen 400 mg Tablet 400 mg PO Q4H Qty: 90 0RF ondansetron 4 mg Tablet,Disintegrating 4 mg PO Q4HR PRN (Reason: Nausea And Vomiting) Qty: 10 0RF oxycodone 5 mg Tablet 5 mg PO Q3H PRN (Reason: Pain, Moderate (4-6)) Qty: 30 0RF docusate sodium 100 mg Capsule 100 mg PO BID Qty: 30 0RF Continued multivitamin Tablet 2 tab PO DAILY Qty: 0 acetaminophen 500 mg capsule 1,000 mg PO Q6H PRN (Reason: Pain) Rx Instructions: States taken about every 5-5.5 hours. valsartan 160 mg tablet 320 mg PO DAILY (DME) DISABLED PARKING PERMIT See Rx Instructions .ROUTE .MEDSUPPLY Qty: 1 0RF Rx Instructions: I FIND THIS PATIENT TO BE MEDICALLY DISABLED AND QUALIFIED FOR DISABLE PARKING INDICATED, AND SIGNED ON THE ACCOMPANYING [employer] APPLICATION FOR INDIVIDUALS albuterol sulfate 90 mcg/actuation HFA aerosol inhaler 2 inh inhalation QID PRN (Reason: shortness of breath or wheezing) Qty: 8.5 3RF Calm-Mag 1 dose PO BEDTIME aspirin 81 mg Tablet,Delayed Release (Dr/Ec) 81 mg PO DAILY furosemide [Lasix] 40 mg tablet 40 mg PO DAILY atorvastatin 40 mg tablet 40 mg PO DAILY estradiol 0.01 % (0.1 mg/gram) cream See Rx Instructions .ROUTE .COMPLEX Qty: 42.5 3RF Dose Instruction: INSERT 1 GRAM VAGINALLY TWO TIMES PER WEEK AT BEDTIME DIRECTED Rx Instructions: INSERT 1 GRAM VAGINALLY TWO TIMES PER WEEK AT BEDTIME DIRECTED (mondays and ) Follow up/Referrals: Maria C Amado MD [Physician] - 09/16/23 2:40 pm (09/15 @ 2;40 with Chel march @ [facility] Follow up as scheduled in [address] [facility]) Abby Presley DO [Primary Care Provider] - Diet/Activity/Treatments Diet: Diet as Tolerated Activity: WBAT Other treatments: Dressing/Wound care: -Keep Bubba wrap brace. May rewrap it change gauze as needed. -keep dressing in place until follow up. If requires changing may change. You have bri and gauze paper tape and an Bubba wrap dressing because of your adhesive reactions. -you may see some drainage on the bandage, this is ok. If it is leaking or saturated, then the dressing can be changed to clean gauze or a clean surgical dressing from a pharmacy or reinforced with additional gauze and paper tape or dressings over the top. Otherwise, just keep dressing in place until follow up. -keep incision and dressing dry. -Please call the office if dressing becomes significantly wet, soiled, or saturated. Activities: -Weight-bearing as tolerated. Use front wheeled walker, and progress to cane when safe. -Continue with home exercises as directed by your physical therapist. -Elevate ?toes above the nose if you have significant swelling in your lower leg. (A wedge pillow is easiest.) -Ice your incision as needed for pain/inflammation/swelling. Protect your skin with a folded pillowcase. Follow-up: -Follow-up with your surgeon or PA in the office in 10-14 days after surgery. -Follow-up with your surgeon 6 weeks postoperatively. Call the office if you have significant swelling that will not resolve with elevating, fever over 101?, significantly worsening pain. If you have chest pain or shortness of breath call 911 or present to emergency room. [facility]: [phone] You have been discharged with medications. These have already been sent to your pharmacy. Pain include pain medications: Oxycodone take 5 mg orally every 4 hours as needed for pain. If your pain is more severe you may take up to 2 or a maximum 3 pills (15 mg) every 4 hours for pain. Take the smallest dose necessary. Narcotic medication can make you feel constipated. You can get jhag-xnf-msnucvy stool softener such as docusate sodium-Colace at a pharmacy to help with this. You also have prescriptions for ibuprofen 800 mg take this 3 times a day for least the 1st 10 days after surgery to help with pain control. And acetaminophen (Tylenol) take 500-1000 mg 3 times a day for pain control. You also have a prescription for Zofran (ondansetron) this is a strong anti nausea medication that can be taken up to every 8 hours as needed for nausea Additionally will take a baby aspirin 81 mg twice a day (morning and night) to help prevent blood clots If you have been discharged with ketorolac (toradol) this is a strong anti- inflammatory, do not take ibuprofen/meloxicam/mortin or other NSAIDS while on ketorolac. Once your ketorolac prescription is finished, you may restart taking other NSAIDs again. narcotic pain medication, tylenol and aspirin are fine to continue while on ketorolac. Skin/Wound/Dressing Care Report to your healthcare provider any signs of infection, such as:: chills, fever, night sweats, increased pain, unusual drainage and unusual redness Visit Report/Discharge Packet Instructions: DI for Knee Replacement, DI for Prescription Opioid Use Stand Alone Forms: Patient Portal/API Discharge Data Primary Care Provider: Abby Presley Attending Provider: Maria C Amado
[2023-09-03 10:51] VITALS: BP 151/50; PULSE 75; RESP 18; TEMP 36.9; O2SAT 93
[2023-09-03 10:53] VITALS: BP 151/50; PULSE 75; RESP 18; TEMP 35.3; O2SAT 93
[2023-09-03 10:55] VITALS: BP 121/53; PULSE 116; RESP 18; TEMP 36.9; O2SAT 97
--- NOTE | 2023-09-03 11:23 | CM.DANOTE ---
Initial DCP Assessment Note Pt is a 82 yo female, resident of [place], now POD#1 from Left TKA PCP: Abby Presley Payer: Trudy AUSTIN Reviewed chart, pt discussed in multidisciplinary rounds this morning. Therapy has cleared pt for return home w/family to assist and pt has planned for home, DC order from Ortho has already been initiated this morning. Met w/patient and spouse, both eager to return home and deny needs from this CM team. Spouse able to assist patient throughout her recovery. No barriers identified at this time to patient's safe discharge home w/family to assist; close outpatient f/u recommended. CM team will plan to follow closely in case any DC needs or concerns arise. 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 Yes: POLST Advance Directives on File Yes History Provided By Patient,Significant Other, Medical Record Prior Living Arrangements House Household Members spouse Type of transporation used prior to Relies on Others admit Independent with ADL's Yes: Uses cane or walker Is patient alert and oriented? Yes Needs Assistance With Meal Prep,Home Chores / Shopping Patient/Family Preference OP PT Therapy Barriers to Discharge No Discharge Plan Home Transportation Arrangement Spouse plans to provide transport at d/c Referrals Initiated None needed
[2023-09-03 11:30] VITALS: PULSE 63; O2SAT 92
== END 2023-09-03 11:55 | disposition home or self-care (01) ==
LOC: OR 07:22 → AC 07:24
PROVIDERS: PCP Family Medicine; Referring Provider Orthopaedic Surgery Foot and Ankle Surgery; Visit Provider Orthopaedic Surgery Foot and Ankle Surgery
PROC: 0SRD0JZ Replacement of Left Knee Joint with Synthetic Substitute, Open Approach (ICD-10-PCS; CPT 27447; principal; 2023-09-02 08:45)
DX: M17.12 Unilateral primary osteoarthritis, left knee (principal); G89.18 Other acute postprocedural pain; E66.9 Obesity, unspecified; Z68.41 Body mass index [BMI] 40.0-44.9, adult
CPT/HCPCS: 27447; 36415; 64450; 73560; 85014; 85018; 97116; 97162; 97165; 97530; 97535; C1776; C9290; J0171; J0690; J1100; J2250; J2405; J2704; J3010; J7613

== ENCOUNTER 2023-09-14 13:35 | Emergency (ER) | payer MEDICARE, SELFPAY ==
[2023-09-02 14:01] VITALS: BMI 42.8
[2023-09-14] VITALS (12 sets, daily range): BP systolic 165–221; BP diastolic 63–82; PULSE 63–70; RESP 18–20; TEMP 36.6; O2SAT 92–95; BMI 47.8
--- NOTE | 2023-09-14 13:44 | DI.RAD.S_ITS ---
PROCEDURE: XR KNEE LT 3V INDICATIONS: fall, recent knee replacement TECHNIQUE: 3 views of the knee were acquired. COMPARISON: [facility], CR, XR KNEE LT 3V, 06/03/2022, 14:41. [facility], CR, XR KNEE RT 3V, 06/03/2022, 14:41. [facility], CR, XR KNEE LT 1TO2V, 09/02/2023, 11:47. FINDINGS: Bones: Suboptimal evaluation the patella. No definite fractures or dislocations. No suspicious bony lesions. Knee arthroplasty. Soft tissues: No joint effusion. No suspicious soft tissue calcifications. IMPRESSION: No acute fracture. No osseous lesion. If symptoms and/or clinical suspicion for pathology persist, further assessment with repeat, or advanced imaging (e.g., CT, MRI, or bone scan) may be helpful for further assessment. Dictated by: Shaunna Quiroga M.D. on 09/14/2023 at 15:23 Approved by: Shaunna Quiroga M.D. on 09/14/2023 at 15:24
--- NOTE | 2023-09-14 14:19 | DI.RAD.S_ITS ---
PROCEDURE: XR HIP W PEL IF DONE LT 2V INDICATIONS: pain after fall TECHNIQUE: AP pelvis and lateral view of the hip acquired. COMPARISON: [facility], [place], XR HIP W PEL IF DONE LT 2V, 06/23/2019, 16:24. FINDINGS: Bones: Patient is status post left hip arthroplasty, with hardware components in expected positions. The hip joint appears congruent. The visualized bony structures appear intact. Soft tissues: Overlying postoperative changes are noted. No suspicious soft tissue densities. IMPRESSION: No acute fracture. No osseous lesion. If symptoms and/or clinical suspicion for pathology persist, further assessment with repeat, or advanced imaging (e.g., CT, MRI, or bone scan) may be helpful for further assessment. Dictated by: Shaunna Quiroga M.D. on 09/14/2023 at 15:24 Approved by: Shaunna Quiroga M.D. on 09/14/2023 at 15:25
--- NOTE | 2023-09-14 15:29 | ED.LOWEXIN ---
HPI - Extremity Injury (Lower) General Chief Complaint: Extremity Injury, Lower Stated Complaint: left knee pain post fall/knee replacement 2wks ago Time Seen by Provider: 09/14/23 13:52 Source: patient Mode of arrival: EMS Limitations: no limitations History of Present Illness HPI Narrative: Patient is an 82-year-old female. Two weeks ago had a left total knee replacement. Has a follow-up within the next couple weeks with her orthopedic surgeon. She uses a walker at baseline and sometimes a wheelchair. Approximately 2 hours ago she states she lost her balance and fell forward and landed on her left knee. She also hurt her left hip. Had some bleeding from the surgical incision. No other injuries from the event. Related Data Home Medications Medication Instructions Recorded Confirmed multivitamin 2 tab PO DAILY ##0 09/23/12 09/02/23 acetaminophen 500 mg capsule 1,000 mg PO Q6H PRN Pain 07/29/21 09/02/23 Calm-Mag 1 dose PO BEDTIME 01/07/22 09/02/23 valsartan 160 mg tablet 320 mg PO DAILY 02/03/22 09/02/23 atorvastatin 40 mg tablet 40 mg PO DAILY 03/30/23 09/02/23 aspirin 81 mg tablet,delayed 81 mg PO DAILY 08/19/23 09/02/23 release furosemide 40 mg tablet (Lasix) 40 mg PO DAILY edema 08/19/23 09/02/23 Previous Rx's Medication Instructions Recorded albuterol sulfate 90 mcg/actuation 2 inh inhalation QID PRN shortness 11/06/22 aerosol inhaler of breath or wheezing #8.5 grams DISABLED PARKING PERMIT #1 ea 12/15/22 estradiol 0.01% (0.1 mg/gram) See Rx Instructions .Route 07/14/23 vaginal cream .COMPLEX #42.5 grams acetaminophen 325 mg tablet 650 mg (2 x 325 mg) PO Q6H #90 tabs 09/03/23 docusate sodium 100 mg capsule 100 mg PO BID #30 caps 09/03/23 ibuprofen 400 mg tablet 400 mg PO Q4H #90 tabs 09/03/23 ondansetron 4 mg disintegrating 4 mg PO Q4HR PRN Nausea And 09/03/23 tablet Vomiting #10 tabs oxycodone 5 mg tablet 5 mg PO Q3H PRN Pain, Moderate 09/03/23 (4-6) #30 tabs Allergies Allergy/AdvReac Type Severity Reaction Status Date / Time adhesive tape AdvReac Severe Rash, Verified 08/19/23 10:08 removes my skin codeine AdvReac Mild NAUSEA Verified 09/02/23 07:58 Review of Systems Constitutional Constitutional: Reports system reviewed and no additional complaints, except as documented Musculoskeletal Musculoskeletal: Reports system reviewed and no additional complaints, except as documented Integumentary/Breasts Skin/Breast: Reports system reviewed and no additional complaints, except as documented Neurologic Neurologic: Reports system reviewed and no additional complaints, except as documented Hematologic/Lymphatic On Anticoagulants: No Patient History Medical History Anesthesia complication Easy bruisability History of revision of total replacement of right hip joint Endometrial cancer Hearing impaired Neuropathy Lower urinary tract symptoms (LUTS) Left knee DJD Vitamin B12 deficiency Morbid obesity with body mass index (BMI) of 40.0 to 49.9 (~10/30/15) Shortness of breath on exertion Neuropathy Postmenopausal atrophic vaginitis Arthritis Obstructive sleep apnea syndrome (10/30/15) Malignant neoplasm of endometrium (10/30/15) Surgical History (Updated 08/19/23 @ 10:54 by Janny Brower RN) History of gynecologic surgery (09/24/15) History of gynecologic surgery (05/26/14) History of surgery (10/2015) Hx of partial thyroidectomy Hx of bilateral cataract extraction Hx of cataract surgery Status post surgery (09/24/15) History of hip replacement (~2005) History of hip replacement (~2005) Status post delivery Status post delivery History of tonsillectomy Family History Daughter Cancer Father Cerebrovascular accident (stroke) Hypertension Social History marital status: number of children: 2 household members: spouse Smoking Status: Never smoker alcohol intake: current Smoking Status: Never smoker alcohol intake frequency: holidays/special occasions only Substance Use Type: does not use Exam Initial Vital Signs Initial Vital Signs: Vital Signs Pulse Rate 69 09/14/23 13:37 Pulse Oximetry 92 09/14/23 13:37 Const General: cooperative and No ill appearing Skin Other: Surgical incision appears well in the left anterior knee with bri in place. There was a small amount of oozing Neuro Sensory Exam: no sensory deficits noted Extrem Other: Swelling bilateral extremity with ecchymosis Course Orders Ordered: ED Orders 09/14/23 13:44 XR knee LT 3V Stat 09/14/23 14:19 XR hip w pel if done LT 2V Stat Vital Signs Vital signs: Vital Signs - 8 hr 09/14/23 13:37 09/14/23 13:38 09/14/23 13:38 Temperature Pulse Rate 69 68 Respiratory Rate Blood Pressure 201/82 H Pulse Oximetry 92 95 Oxygen Delivery Method 09/14/23 13:39 09/14/23 14:00 09/14/23 14:01 Temperature 97.8 F Pulse Rate 69 67 Respiratory Rate 20 Blood Pressure 221/81 H 202/74 H Pulse Oximetry 92 93 Oxygen Delivery Method Room Air 09/14/23 14:01 09/14/23 14:14 09/14/23 14:14 Temperature Pulse Rate 67 70 Respiratory Rate Blood Pressure 176/79 H Pulse Oximetry 92 93 Oxygen Delivery Method 09/14/23 14:30 09/14/23 14:30 Temperature Pulse Rate 65 Respiratory Rate Blood Pressure 173/63 H Pulse Oximetry 93 Oxygen Delivery Method Room Air MDM - Extremity Injury (Lower) Imaging Data Extremity x-ray #1: Radiologist's Impression: PROCEDURE: XR KNEE LT 3V INDICATIONS: fall, recent knee replacement TECHNIQUE: 3 views of the knee were acquired. COMPARISON: [facility], XR KNEE LT 3V, 06/03/2022, 14:41. [facility], XR KNEE RT 3V, 06/03/2022, 14:41. [facility], XR KNEE LT 1TO2V, 09/02/2023, 11:47. FINDINGS: Bones: Suboptimal evaluation the patella. No definite fractures or dislocations. No suspicious bony lesions. Knee arthroplasty. Soft tissues: No joint effusion. No suspicious soft tissue calcifications. IMPRESSION: No acute fracture. No osseous lesion. If symptoms and/or clinical suspicion for pathology persist, further assessment with repeat, or advanced imaging (e.g., CT, MRI, or bone scan) may be helpful for further assessment. Extremity x-ray #2: Radiologist's Impression: PROCEDURE: XR HIP W PEL IF DONE LT 2V INDICATIONS: pain after fall TECHNIQUE: AP pelvis and lateral view of the hip acquired. COMPARISON: [facility], CR, XR HIP W PEL IF DONE LT 2V, 06/23/2019, 16:24. FINDINGS: Bones: Patient is status post left hip arthroplasty, with hardware components in expected positions. The hip joint appears congruent. The visualized bony structures appear intact. Soft tissues: Overlying postoperative changes are noted. No suspicious soft tissue densities. IMPRESSION: No acute fracture. No osseous lesion. If symptoms and/or clinical suspicion for pathology persist, further assessment with repeat, or advanced imaging (e.g., CT, MRI, or bone scan) may be helpful for further assessment. MDM Narrative Medical decision making narrative: There were no fractures nor dislocations noted on the x-rays. She does have some oozing from the surgical wound on the left anterior knee however the bri are in place in the looks well. Patient can be discharged home to follow with the postoperative instructions given to by the orthopedic surgeon. No indication for admission to the hospital. She was given return precautions. She expressed understanding and agreement. Discharge Plan Departure Patient Disposition: Home Clinical Impression: Postoperative complication Activity Restrictions/Additional Instructions: The x-rays today did not show any signs of fractures or displacement of the new knee prosthesis. You can potentially expect some continued drainage from the surgical wound however today the wound looks very well. Follow all of the postoperative instructions given to you by the orthopedic surgeon and keep all of your scheduled medical appointments. Return to the emergency department for new or worsening symptoms. Prescriptions: No Action multivitamin Tablet 2 tab PO DAILY Qty: 0 acetaminophen 500 mg capsule 1,000 mg PO Q6H PRN (Reason: Pain) Rx Instructions: States taken about every 5-5.5 hours. valsartan 160 mg tablet 320 mg PO DAILY (DME) DISABLED PARKING PERMIT See Rx Instructions .ROUTE .MEDSUPPLY Qty: 1 0RF Rx Instructions: I FIND THIS PATIENT TO BE MEDICALLY DISABLED AND QUALIFIED FOR DISABLE PARKING INDICATED, AND SIGNED ON THE ACCOMPANYING [employer] APPLICATION FOR INDIVIDUALS albuterol sulfate 90 mcg/actuation HFA aerosol inhaler 2 inh inhalation QID PRN (Reason: shortness of breath or wheezing) Qty: 8.5 3RF Calm-Mag 1 dose PO BEDTIME aspirin 81 mg Tablet,Delayed Release (Dr/Ec) 81 mg PO DAILY furosemide [Lasix] 40 mg tablet 40 mg PO DAILY acetaminophen 325 mg Tablet 650 mg PO Q6H Qty: 90 0RF ibuprofen 400 mg Tablet 400 mg PO Q4H Qty: 90 0RF ondansetron 4 mg Tablet,Disintegrating 4 mg PO Q4HR PRN (Reason: Nausea And Vomiting) Qty: 10 0RF oxycodone 5 mg Tablet 5 mg PO Q3H PRN (Reason: Pain, Moderate (4-6)) Qty: 30 0RF docusate sodium 100 mg Capsule 100 mg PO BID Qty: 30 0RF atorvastatin 40 mg tablet 40 mg PO DAILY estradiol 0.01 % (0.1 mg/gram) cream See Rx Instructions .ROUTE .COMPLEX Qty: 42.5 3RF Dose Instruction: INSERT 1 GRAM VAGINALLY TWO TIMES PER WEEK AT BEDTIME DIRECTED Rx Instructions: INSERT 1 GRAM VAGINALLY TWO TIMES PER WEEK AT BEDTIME DIRECTED (mondays and ) Referrals: Abby Presley DO [Primary Care Provider] - Stand Alone Forms: Patient Portal/API
== END 2023-09-14 16:38 | disposition home or self-care (01) ==
PROVIDERS: Emergency Provider Emergency Medicine; PCP Family Medicine
DX: T81.9XXA Unspecified complication of procedure, initial encounter (principal)
CPT/HCPCS: 73502; 73562; 99281; 99283

== ENCOUNTER → 2024-04-05 15:28 | Outpatient (CLI) | payer MEDICARE, SELFPAY ==
[2023-09-02 14:01] VITALS: BMI 42.8
--- NOTE | 2024-04-05 15:29 | DI.MG.S_ITS ---
BILATERAL DIGITAL SCREENING MAMMOGRAM 3D/2D WITH CAD: 04/05/2024 CLINICAL: Routine screening. Family history of breast cancer. Comparison is made to exams dated: 03/31/2023 mammogram, 03/21/2022 mammogram, and 03/20/2021 mammogram - [facility]. There are scattered areas of fibroglandular density (category b / 25%-50% glandular tissue). Current study was also evaluated with a Computer Aided Detection (CAD) system. There are benign calcifications in both breasts. No significant masses, calcifications, or other findings are seen in either breast. There has been no significant interval change. IMPRESSION: BENIGN There is no mammographic evidence of malignancy. A 1 year screening mammogram is recommended. Based on the Tyrer Cuzick model (a risk assessment model) the patient's lifetime risk is 0.3% and her 10 year risk is 0.0%. According to the ACR, ACS, and NCCN guidelines, an annual breast MRI exam along with mammogram is recommended if the patient's lifetime risk is 20% or greater. This exam was interpreted at Station ID: [id number]. NOTE: For mammograms, a report in lay terms will be sent to the patient. Approximately 15% of breast malignancies will not be visualized mammographically. In the management of a palpable breast mass, a negative mammogram must not discourage biopsy of a clinically suspicious lesion. Electronically Signed By: Arleen badillo/karlie:04/06/2024 08:43:29 copy to: SARAI MTZ letter sent: Normal Exam ACR BI-RADS Category 2: Benign
== END ==
PROVIDERS: PCP Family Medicine; Referring Provider Family Medicine; Visit Provider Family Medicine
DX: Z12.31 Encounter for screening mammogram for malignant neoplasm of breast (principal); Z80.3 Family history of malignant neoplasm of breast
CPT/HCPCS: 77063; 77067

== ENCOUNTER → 2024-05-26 12:27 | Outpatient (CLI) | payer MEDICARE, SELFPAY ==
[2023-09-02 14:01] VITALS: BMI 42.8
--- NOTE | 2024-05-26 12:30 | DI.RAD.S_ITS ---
PROCEDURE: XR CERVICAL SPINE 4V OR 5V INDICATIONS: Progressive axial neck pain TECHNIQUE: Five views of the cervical spine acquired. COMPARISON: None. FINDINGS: Cervical spine curvature and alignment: Normal. Bones: There are no osseous abnormalities. Disc spaces: Mild degenerative disc disease C4-5, C5-6 and C6-7 appreciated. 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 Moderate degenerate facet disease present C2-3 through C7-T1. Intervertebral foramen: The right IV intervertebral foramen are not well profiled. There is severe left C3-4 mild left C4-5 severe left C5-6 C6-7 IV foraminal narrowing. Soft tissues: No soft tissue swelling, calcification or mass. IMPRESSION: Degeneration. Dictated by: Cl Flores M.D. on 05/27/2024 at 10:44 Approved by: Cl Flores M.D. on 05/27/2024 at 10:46
== END ==
PROVIDERS: PCP Family Medicine; Referring Provider Physical Medicine & Rehabilitation; Visit Provider Physical Medicine & Rehabilitation
DX: M47.22 Other spondylosis with radiculopathy, cervical region (principal); M47.812 Spondylosis without myelopathy or radiculopathy, cervical region; M50.30 Other cervical disc degeneration, unspecified cervical region
CPT/HCPCS: 72050

== ENCOUNTER → 2024-06-03 15:07 | Outpatient (CLI) | payer MEDICARE, SELFPAY ==
[2023-09-02 14:01] VITALS: BMI 42.8
--- NOTE | 2024-06-03 15:08 | DI.MRI.S_ITS ---
PROCEDURE: MR CERVICAL SPINE WO CON INDICATIONS: Progressive axial neck pain TECHNIQUE: Noncontrast sagittal T1 spin echo and T2 fast spin echo, sagittal STIR, foraminal oblique sagittal T2 fast spin echo, and axial gradient echo or T2 fast spin echo through the cervical spine. COMPARISON: None. FINDINGS: Image quality: Excellent. Alignment and Curvature: There is normal bony alignment. Bone Marrow: Marrow demonstrates normal overall signal. Spinal Cord: Congenital narrowing of the spinal canal. Visualized spinal cord has normal size and signal. No cerebellar tonsillar herniation. Paraspinous Soft Tissues: No paravertebral masses. Prevertebral soft tissues are normal in thickness. Right thyroid lobe cystic appearing structure measuring 1.5 cm. C2-C3: Disc desiccation. Facet and uncovertebral arthropathy. Moderate central canal stenosis. Moderate left and no right neural foraminal stenosis. C3-C4: Disc desiccation. Facet and uncovertebral arthropathy. Mild to moderate central canal stenosis. Moderate to severe bilateral neural foraminal stenosis. C4-C5: Disc desiccation and mild posterior disc osteophyte complex. Severe central canal stenosis. Facet and uncovertebral arthropathy. Severe bilateral neural foraminal stenosis. C5-C6: Disc desiccation and posterior disc osteophyte complex. Facet and uncovertebral arthropathy. Severe central canal stenosis. Severe right and mild left neural foraminal stenosis. C6-C7: Disc desiccation and posterior disc osteophyte complex. Moderate to severe central canal stenosis. Facet and uncovertebral arthropathy. Moderate left and mild right neural foraminal stenosis. C7-T1: Mild central canal stenosis. No significant neural foraminal stenosis. IMPRESSION: 1. 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 2. Severe central canal stenosis C4-C5 and C5-C6. Moderate to severe central canal stenosis at C6-C7. 3. Severe neural foraminal stenosis bilaterally at C4-C5 and on the right at C5-C6. Moderate to severe bilateral neural foraminal stenosis at C3-C4. 4. Right thyroid lobe cystic appearing nodule measuring 1.5 cm. Dictated by: Rigo Burger M.D. on 06/03/2024 at 20:45 Approved by: Rigo Burger M.D. on 06/03/2024 at 20:49
== END ==
PROVIDERS: PCP Family Medicine; Referring Provider Physical Medicine & Rehabilitation; Visit Provider Physical Medicine & Rehabilitation
DX: M47.22 Other spondylosis with radiculopathy, cervical region (principal); M48.02 Spinal stenosis, cervical region; E07.89 Other specified disorders of thyroid
CPT/HCPCS: 72141

== ENCOUNTER 2025-01-17 08:35 | Outpatient (CLI) | payer MEDICARE, SELFPAY ==
[2023-09-02 14:01] VITALS: BMI 42.8
[2025-01-17] VITALS (8 sets, daily range): BP systolic 140–218; BP diastolic 66–94; PULSE 69–79; RESP 11–20; TEMP 36.1; O2SAT 94–100
[2025-01-17] MEDS: MIDAZOLAM 2 MG/2 ML VIAL IV (10:06)
--- NOTE | 2025-01-17 10:26 | P.PCN_ITS ---
Date/Time/Diagnoses Date of procedure: 01/17/25 Time of procedure: 10:26 Pre-procedure diagnosis: 1. CERVICAL STENOSIS, 2. CERVICAL HNP WITH UPPER EXTREMITY RADICULAR FEATURES Post-procedure diagnosis: same Procedure Notes Procedure: 1. FLUORSCOPICALLY GUIDED CONTRAST CONTROLLED INTERLAMINAR EPIDURAL STEROID INJECTION - C6/7 TL MAKSIM Indications: Evon is referred by Dr. Presley for treatment of Cervical HNP with Upper Extremity Paresthesias. Physician: Beau Mazariegos Total Fluoroscopy time (seconds): 34 Total sedation minutes: 15 Complications: none Procedure in detail & Post-procedure care: FINDINGS Cervical Stenosis due to disc deterioration and nerve root irritation and nerve root irritation DESCRIPTION OF PROCEDURE Fluoroscopically guided, contrast-controlled C6/7 translaminar epidural steroid injection with conscious sedation. Following review of allergy and review of potential side effects and complications, including, but not necessarily limited to, infection, allergic reaction, local tissue breakdown, temporary as well as permanent nerve injury, stroke, paralysis, and possible , the patient indicated that patient understood and agreed to proceed. An informed consent document was signed by the patient, witnessed by a nurse, and placed in the patient's chart. Additionally, other treatment options including modalities, medications, and physical therapy were reviewed with the patient. After review of previous anaesthesic history and IV conscious sedation the patient was deemed safe to proceed with today?s procedure with IV conscious sed ation as ASA class II designation. Safety time-out was performed to confirm patient ID, procedure to be performed and site of procedure. IV sedation was accomplished with a combination of 2mg of Versed administered by the RN after DO order, titrated to patient comfort during the course of the procedure while the patient remained responsive to all verbal commands. In the prone position, following sterile prep and drape of the cervical region, the C6/7 translaminar space was identified fluoroscopically. The skin was anesthetized via a 25-gauge 1.5-inch needle with 1% lidocaine solution. At this point, a 25-gauge, 2.5-inch short bevel spinal needle was atraumatically introduced and advanced under fluoroscopic guidance into epidural space at the C6/7 translaminar space. Depth was confirmed on lateral view. Radiological data, including multiple fluoroscopic views of the cervical spine, reveal a spinal needle at the C6/7 translaminar space. Lateral views then show placement of the needle in the epidural space. Subsequent views show contrast material flowing superiorly and inferiorly in the epidural space. DSA fluoroscopy with live contrast injection, once again, confirmed no vascular or intrathecal uptake. At this point, using loss of resistance technique with saline and air, the epidural space was entered. Following negative aspiration, injection of approximately 1.5 cc of Isovue-200 with live fluoroscopy in the AP view confirmed epidural flow in the epidural space without vascular or intrathecal uptake observed. Subsequently, a test dose of 1 cc of 1% lidocaine solution was injected and patient was observed for two minutes without signs or symptoms of complications, including abdominal pain, shortness of breath, bilateral upper or lower extremity weakness, nausea and vomiting, prior to steroid injection. At this point, 2cc or 20mg of dexamethasone was then injected without incident. The patient tolerated the procedure well without signs or symptoms of co mplications prior to being transferred to the recovery area for further monitoring, The patient was then transferred to the recovery area where they were observed for an appropriate period of time after the injection. The patient reported a VAS score of 6 prior to the procedure and a post-procedure VAS of 0. POST OP INSTRUCTIONS The patient was provided a Pain Log to continue to record their response to the target-specific procedure prior to follow-up visit with the referring provider. Additionally, specific post-injection care instructions and a contact number to our office were provided if concerns arise regarding possible complications associated with the procedure are suspected.
== END 2025-01-17 10:44 | disposition home or self-care (01) ==
LOC: RAD 08:36
PROVIDERS: PCP Family Medicine; Referring Provider Physical Medicine & Rehabilitation; Visit Provider Physical Medicine & Rehabilitation
DX: M48.02 Spinal stenosis, cervical region (principal); M50.123 Cervical disc disorder at C6-C7 level with radiculopathy
CPT/HCPCS: 62321; 99152; J1100; J2250

== ENCOUNTER → 2025-02-07 14:23 | Outpatient (CLI) | payer MEDICARE, SELFPAY ==
[2023-09-02 14:01] VITALS: BMI 42.8
--- NOTE | 2025-02-07 14:25 | DI.ECHO.S_ITS ---
[facility] : : [id number] : [place] : : [id number] : : Phone: [phone] Echocardiogram Report + + :Name: MARY HAYES Study Date: 02/07/2025 Height: 59 in : :[facility] ReadingLocation: Weight: 209 lb: : Gender: Female BSA: 1.9 m2 : :: 1940 Age: 84 yrs : :Reason For Study: PULMONARY ARTERIAL HYPERTENSION : :Ordering Physician: HASEEB, : :ROSIE Performed By: Felix Mcghee : :Referring: ROSIE MEMBRENO : + + Interpretation Summary TDS - BODY HABITUS. The patient was in normal sinus rhythm during the exam. The left ventricle is normal in size. The left ventricle is hyperdynamic. The ejection fraction is estimated to be 70-75%. MV E/A: 0.77 Med Peak E' Jairon: 5.9 cm/sec E/E' med: 16.1. Elevated LV filling pressure The right ventricle is normal size. The right ventricular systolic function is normal. The right ventricle appears to be hypertrophied. There is mild to moderate mitral regurgitation. Compared to the prior echo study, there has been an increase in the severity of mitral regurgitation. Suspect decreased excursion of noncoronary cusp however overall no significant aortic stenosis seen. There is mild tricuspid regurgitation. The right ventricular systolic pressure is estimated to be at least 59 mmHg based on an estimated right atrial pressure of 3 mm Hg. Previously 59 mmHg as well. Procedure: A two-dimensional transthoracic echocardiogram with color flow and Doppler was performed. The study quality was technically difficult. Comparison is made with the echocardiogram of 01/07/2022. The patient was in normal sinus rhythm during the exam. Left Ventricle: The left ventricle is normal in size. There is normal left ventricular wall thickness. There is no thrombus. The ejection fraction is estimated to be 70-75%. The left ventricle is hyperdynamic. There are no focal wall motion abnormalities. MV E/A: 0.77 Med Peak E' Jairon: 5.9 cm/sec E/E' med: 16.1. Diastolic parameters suggest probable elevated filling pressures. Right Ventricle: The right ventricle is normal size. The right ventricle is not well visualized. The right ventricle appears to be hypertrophied. The right ventricular systolic function is normal. Atria: The left atrium is mildly dilated. There has been no significant change since the previous study. Right atrium not well visualized. There is no Doppler evidence for an atrial septal defect. Mitral Valve: There is mild mitral annular calcification. There is mild to moderate mitral regurgitation. Compared to the prior echo study, there has been an increase in the severity of mitral regurgitation. Aortic Valve: The aortic valve is not well visualized. The aortic valve is mildly calcified. Suspect decreased excursion of noncoronary cusp however overall no significant aortic stenosis seen. No aortic regurgitation is present. Tricuspid Valve: The tricuspid valve is not well visualized. There is mild tricuspid regurgitation. The right ventricular systolic pressure is estimated to be at least 59 mmHg based on an estimated right atrial pressure of 3 mm Hg. Pulmonic Valve: The pulmonic valve is not well visualized. There is mild pulmonic regurgitation. Great Vessels: The aortic root is normal size. The dimensions of the ascending aorta are normal. The pulmonary is not well visualized. The IVC is of normal diameter and collapses greater than 50% with a sniff. This suggests a low right atrial pressure of 3 mm Hg. Pericardium/ Pleura There is no pericardial effusion. There is an anterior echo-free space consistent with a fat pad. There is no pleural effusion. MMode/2D Measurements & Calculations LVIDd: 5.3 cm LVOT diam: 1.8 cm LVIDs: 3.2 cm Ao root diam: 3.0 cm FS: 40.0 % asc Aorta Diam: 2.9 cm EPSS: 0.75 cm IVSd: 0.93 cm LVPWd: 0.98 cm LV singh. diameter/BSA (cm/m^2): 2.8 LV sys. diameter/BSA (cm/m^2): 1.7 LA A2 area: 21.5 cm2 IVC diam: 1.8 cm LA A4 area: 23.0 cm2 LA length (vol): 6.3 cm LA vol: 66.8 ml LA vol index: 35.6 ml/m2 TAPSE: 3.0 cm Doppler Measurements & Calculations Ao V2 max: 166.3 cm/sec LVOT Max Jairon: 132.8 cm/sec Ao V2 mean: 113.8 cm/sec LV V1 max P.1 mmHg Ao max P.1 mmHg LV V1 VTI: 28.9 cm Ao mean P.7 mmHg CHRIS(I,D): 2.1 cm2 Ao V2 VTI: 36.8 cm CHRIS(V,D): 2.1 cm2 sev ratio: 0.79 CHRIS indexed to BSA (cm^2/m^2): 1.1 MV E max jairon: 95.6 cm/sec TR max jairon: 375.0 cm/sec MV A max jairon: 124.9 cm/sec TR max P.2 mmHg MV E/A: 0.77 PA V2 max: 139.1 cm/sec Med Peak E' Jairon: 5.9 cm/sec PA V2 mean: 109.8 cm/sec E/E' med: 16.1 PA mean P.0 mmHg Lat Peak E' Jairon: 4.3 cm/sec PA pr(Accel): 65.3 mmHg E/E' lat: 22.1 E/e' average: 19.1 MV dec time: 0.17 sec SV(LVOT): 77.1 ml Reading Physician:05:05 PM
== END ==
LOC: ECHO 14:24
PROVIDERS: PCP Family Medicine; Referring Provider Family Medicine; Visit Provider Internal Medicine Cardiovascular Disease
DX: I27.21 Secondary pulmonary arterial hypertension (principal); I08.1 Rheumatic disorders of both mitral and tricuspid valves
CPT/HCPCS: 93306